=== PATIENT | male | born 1965 | race Caucasian/White ===

== ENCOUNTER 2020-09-04 04:15 | Observation (INO) | payer MEDICAID, SELFPAY ==
[2020-09-04] VITALS (14 sets, daily range): BP systolic 93–150; BP diastolic 62–93; PULSE 57–100; RESP 7–23; TEMP 36.6–37.3; O2SAT 69–98; BMI 20.4; BMI 19.5
--- NOTE | 2020-09-04 04:22 | EKG12_ITS ---
Test Reason : Blood Pressure : / mmHG Vent. Rate : 091 BPM Atrial Rate : 091 BPM P-R Int : 144 ms QRS Dur : 094 ms QT Int : 378 ms P-R-T Axes : 075 099 050 degrees QTc Int : 464 ms Normal sinus rhythm Rightward axis Incomplete right bundle branch block Borderline ECG Confirmed by KAROL KEYS, YOUNG ([id number]), editorial assistant PORSCHE WONG ([id number]) on 09/05/2020 10:30:20 AM Referred By: BB Confirmed By:YOUNG ROBERSON MD
--- NOTE | 2020-09-04 04:22 | CT_ITS ---
STUDY: CT BRAIN WITHOUT CONTRAST REASON FOR EXAM: Male, 54 years old. ALTERED MENTAL STATUS/VOMITING RADIATION DOSAGE (If Supplied By Facility): CTDIvol = ( 44.99 ) mGy, DLP = ( 762.36 ) mGycm TECHNIQUE: Transaxial CT imaging of the brain was performed without administration of intravenous contrast material. Individualized dose optimization techniques were used for this CT. COMPARISON: No relevant priors. FINDINGS: Normal soft tissue structures. Normal calvarium. There is a suggestion of prior zygomatic arch fractures. Normal size ventricles and extra-axial spaces for the patient''s age. Normal white matter tracts of the cerebral hemispheres. Normal basal ganglia and thalami. Normal brainstem. Normal cerebellum. There is no intracranial hemorrhage. There are no findings of an acute ischemic infarction. Normal visualized paranasal sinuses. CT/Brain/Head without Contrast IMPRESSION: Normal unenhanced CT scan of the brain. Electronically Signed: Katharina Calloway MD at 5:12 EST Tel , Service support ,
--- NOTE | 2020-09-04 04:24 | ED.VIS.DYS ---
History of Present Illness Chief Complaint: Alt LOC Informant: Patient, EMS Onset: - - unclear; see below Quality: - - decreased LOC Current Severity: Mild Maximum Severity: Severe Associated Symptoms: Cough. Negative for: Fever Chest Pain: None Narrative: Patient presents by EMS just after 4 AM with a history from the paramedics that the son called because upon checking on the patient he was not responding well and not breathing well with signs of emesis near the bedside. When EMS got there, they state that the son had gotten him out of bed and moved him to a chair outside, on the porch in approximately 28 degree weather. EMS states that the patient had agonal breathing on their initial evaluation. They did not intervene, but upon loading him into the ambulance he was breathing better. He was hypoxic but otherwise with normal vital signs and he is not on home oxygen. He has COPD and continues to be a heavy smoker, he states he also uses marijuana occasionally and no other drugs that he knows of. He denies feeling short of breath, having headache, having any chest or abdominal discomfort right now and he denies having a history of COVID-19 or been in contact with anybody that he knows of with it. - Past Medical History (1) COPD (chronic obstructive pulmonary disease) Status: Chronic Past Medical History - Allergies and Home Meds Allergies/Adverse Reactions: Allergies No Known Allergies Allergy (Verified 09/04/20 04:22) Primary Care Physician: Bridger Quigley MD [STAFF PHYSICIAN] - Lives: With Family Smoking Status: Current every day smoker Drugs: Marijuana Review of Systems ROS: Unable to Obtain - limited due to lethargy; see below General: Reports: Malaise. Denies: Chills, Fever, Sweats Eyes: Denies: Visual changes - bilaterally, Diplopia ENT: Denies: Bilateral ear pain, Rhinorrhea, Sore throat Cardiovascular: Denies: Chest pain, Palpitations Respiratory: Reports: Dyspnea - gone now per pt, Cough Gastrointestinal: Denies: Abdominal pain, Nausea, Vomiting, Diarrhea Genitourinary: Denies: Dysuria, Hematuria, Frequency Musculoskeletal: Denies: Myalgias, Swelling, Extremity Pain Skin: Denies: Rash, Wounds Neurological: Denies: Headache, Weakness, Numbness Endocrine: Reports: - - feels cold now. Denies: Polyuria, Polydipsia Physical Exam Vital Signs/Narrative: Vital Signs Temp Pulse Resp BP Pulse Ox 09/04/20 04:16 97.8 F 100 16 150/93 H 69 Inital Vital Signs reviewed: Yes General: Well nourished, Well developed, Unkempt, No Acute Distress Head: Normocephalic, Atraumatic Eyes: Perrl - 1-2mm, EOMI ENT: Moist mucous membranes, No rhinorrhea Neck: Supple, Nontender, No lymphadenopathy, No JVD Cardiovascular: Regular rate, Regular rhythm, No murmurs. Negative for: Tachycardia Respiratory: No distress, Chest nontender, Wheezing - mild expiratory. Negative for: Rales, Rhonchi Abdomen: Soft, Nontender, Nondistended, Normal bowel sounds Back: Nontender, Normal Inspection Extremities: Nontender, No edema. Negative for: Calf Tenderness Skin: Normal color, No rash, No Trauma Neurological: Cranial nerves II-XII grossly intact, Normal Strength, Normal Sensation, Lethargic - alerts to voice, - - GCS 13. Negative for: Disoriented Psychological: Normal affect, Normal Mood Diagnostic/Tx/Re-eval Impressions Brain CT 09/04/20 04:22 IMPRESSION: Normal unenhanced CT scan of the brain. Electronically Signed: Katharina Calloway MD at 5:12 EST Tel , Service support , Chest X-Ray 09/04/20 05:00 IMPRESSION: Possible nondisplaced fracture left rib 5. No visualized acute focal infiltrates. Electronically Signed: Katharina Calloway MD at 5:19 EST Tel , Service support , 09/04/20 04:22 Brain/Head without Contrast [CT] Stat 09/04/20 05:00 Chest 1 View (Portable) [RAD] Stat 09/04/20 04:27 Mucosa - Nose SARS-CoV-2 Antigen (Rapid) - Final Laboratory Results 09/04/20 09/04/20 09/04/20 04:22 04:22 04:22 WBC 14.4 H RBC 4.90 Hgb 15.2 Hct 48.9 MCV 99.8 H MCH 31.0 MCHC 31.1 L RDW Std Deviation 49.3 H RDW Coeff of Elaine 13.3 Plt Count 316 MPV 10.4 Immature Gran % (Auto) 0.300 Neut % (Auto) 47.2 Lymph % (Auto) 43.5 H Mills % (Auto) 7.2 Eos % (Auto) 1.5 Baso % (Auto) 0.3 Absolute Neuts (auto) 6.8 Absolute Lymphs (auto) 6.25 H Nucleated RBC % 0 Sodium 138 Potassium 3.9 Chloride 98 Carbon Dioxide 32.0 Anion Gap 8 BUN 16 Creatinine 1.11 Estim Creat Clear Calc 66.40 Est GFR (MDRD) Af Amer 89 Est GFR (MDRD) Non-Af 73 BUN/Creatinine Ratio 14.4 Glucose 250 H Lactic Acid Calcium 8.5 Total Bilirubin 0.20 AST 62 H ALT 42 Alkaline Phosphatase 76 Troponin I < 0.015 B-Natriuretic Peptide 35.9 Total Protein 7.5 Albumin 3.9 Globulin 3.6 Albumin/Globulin Ratio 1.1 Ethyl Alcohol 09/04/20 09/04/20 04:22 04:33 WBC RBC Hgb Hct MCV MCH MCHC RDW Std Deviation RDW Coeff of Elaine Plt Count MPV Immature Gran % (Auto) Neut % (Auto) Lymph % (Auto) Mills % (Auto) Eos % (Auto) Baso % (Auto) Absolute Neuts (auto) Absolute Lymphs (auto) Nucleated RBC % Sodium Potassium Chloride Carbon Dioxide Anion Gap BUN Creatinine Estim Creat Clear Calc Est GFR (MDRD) Af Amer Est GFR (MDRD) Non-Af BUN/Creatinine Ratio Glucose Lactic Acid 3.2 H* Calcium Total Bilirubin AST ALT Alkaline Phosphatase Troponin I B-Natriuretic Peptide Total Protein Albumin Globulin Albumin/Globulin Ratio Ethyl Alcohol < 3.0 - Rhythm Strip Rhythm Strip: Sinus Rhythm Rate: 91 Ectopy: None - EKG Initial EKG Interpretation: Sinus Rhythm, No Acute Injury Pattern, RBBB - Incomplete Prior: No Prior Treatment - Dyspnea: Oxygen, - - narcan - Medical Decision Making Patient was noted to have pinpoint pupils and was very lethargic, and very bradypneic with a respiratory rate around 7. His pulse ox was 86 on room air, after performing history and evaluation during which he was taking deep breaths. He was placed on a nasal cannula which maintained him in the mid-high 90s. EMS did not check a blood sugar, very little history was available. We checked a blood sugar it was in the 260s, and we administered Narcan 0.4 mg. The patient quickly awakened just after administration, started breathing better, saying that he felt warmer all of a sudden. I asked him about opioids, he states he took a Percocet earlier for his back hurting, he does not take this daily or even very often. Patient was observed, he remained awake, but hypoxic without the need for nasal cannula. No respiratory distress. Covid negative, chest x-ray negative, head CT negative. Patient is amenable to staying in the hospital which is my recommendation given his hypoxemia and the fact that he does not have oxygen at home. His abnormal lab such as his white blood count and his lactate I suspect are related to recent hypoxemia. No clinical signs of a stroke, he does not have renal failure or signs of an VT on the EKG at this time. Discussed with hospitalist for PCU observation on oxygen. ED Disposition - Plan for ED Patient: Disposition: Acute Care Hospital [facility] Diagnosis: Lethargy, Poisoning by other opioids, accidental (unintentional), initial encounter, Hypoxemia, COPD (chronic obstructive pulmonary disease) Referrals: Bridger Quigley MD [STAFF PHYSICIAN] -
[2020-09-04 04:33] LABS: Absolute Lymphocyte Count 6.25 X10^3/uL (0.83-4.51); Absolute Neutrophil Count 6.8 X10^3/uL (2.0-7.7); Basophil# 0.04 X10^3/uL; Basophil% 0.3 % (0-1); Eosinophil# 0.21 X10^3/uL; Eosinophils% 1.5 % (0-5); Hematocrit 48.9 % (40-54); Hemoglobin 15.2 g/dL (13.0-16.5); Lymphocyte # 6.25 X10^3/ul (4.0); Lymphocyte % 43.5 % (19-41); Mean Corp Hgb Conc 31.1 g/dL (32-36); Mean Corpuscular Volume 99.8 fL (80-94); Mean Platelet Vol. 10.4 fl (6.2-12.0); Monocyte# 1.04 X10^3/uL; Monocyte% 7.2 % (0-10); NRBC Flagged by Analyzer 0 % (0-5); Neutrophil # 6.79 X10^3/uL (2.7-7.7); Neutrophil % 47.2 % (47-70); POSITIVE DIFFERENTIAL YES; POSITIVE MORPHOLOGY YES; Platelet Count 316 K/mm3 (150-450); RBC Distribution Width CV 13.3 % (11.6-14.6); RBC Distribution Width SD 49.3 fl (35.1-43.9); White Blood Count 14.4 K/mm3 (4.4-11.0)
[2020-09-04] MEDS: Naloxone 0.4 MG/ML Syringe IV (04:38)
[2020-09-04 04:46] LABS: Alcohol, Blood (Medical)-Serum < 3.0 mg/dL
[2020-09-04 04:48] LABS: ALB/GLOB Ratio 1.1 RATIO (0.9-2.4); AST(SGOT) 62 U/L (15-37); Alanine Aminotransfer ALT/SGPT 42 U/L (16-61); Albumin, Serum 3.9 g/dL (3.2-5.0); Alkaline Phosphatase 76 U/L (45-117); Anion Gap 8 (5-15); BUN 16 mg/dL (7-18); BUN/Creat Ratio 14.4 RATIO (10-20); Calcium,Total 8.5 mg/dL (8.5-10.1); Chloride 98 mmol/L (98-107); Creatinine, Serum 1.11 mg/dL (0.70-1.30); EST Glomerular Filtration Rate 73 mL/min (>60); Est Glom Filt Rate - Afr Amer 89 mL/min (>60); Globulin 3.6 g/dL (2.2-4.2); Glucose 250 mg/dL (74-106); Potassium 3.9 mmol/L (3.5-5.1); Protein, Total 7.5 g/dL (6.4-8.2); Sodium Level 138 mmol/L (136-145)
[2020-09-04 04:49] LABS: Differential Indicated SCAN CRITERIA MET
[2020-09-04 04:55] LABS: BNP,B-Type NATRIURETIC PEPTIDE 35.9 pg/mL (0-100)
--- NOTE | 2020-09-04 05:00 | RAD_ITS ---
STUDY: X-RAY CHEST REASON FOR EXAM: Male, 54 years old. PT FOUND UNCONSCIOUS BY FAMILY AND BROUGHT IN VIA EMS. AGONAL BREATHING AND ALTERED LOC. TECHNIQUE: Single AP portable view of the chest. COMPARISON: None. FINDINGS: The lungs are clear and expanded. There is no demonstrated pleural abnormality. Normal size heart. Normal mediastinum and gregorio. Normal visualized pulmonary arteries. There is atherosclerotic tortuosity of the aortic arch and descending thoracic aorta. Normal visualized thoracic spine. There is a suggestion of possible nondisplaced fracture of left rib 5. There is no demonstrated abnormality of the visualized soft tissue structures of the upper abdomen. RAD/Chest 1 View (Portable) IMPRESSION: Possible nondisplaced fracture left rib 5. No visualized acute focal infiltrates. Electronically Signed: Katharina Calloway MD at 5:19 EST Tel , Service support ,
[2020-09-04 05:17] LABS: Lactic Acid 3.2 mmol/L (0.4-1.9)
--- NOTE | 2020-09-04 07:18 | HP.PCM_ITS ---
History of Present Illness Date of Admission: 09/04/20 Chief Complaint: altered mental status The patient is a 54 year old M with a PMH of COPD who was admitted with a complaint of altered mental status. Son checked on him at ~ 3:30am, and found him unresponsive. SOn therefore called the EMS, and put him in a chair outside on the porch. THe EMS found him on the porch, with agonal breathing. They didnt do anything for him, and say when they put him in the ambulance, patient started breathing better. He was brought to the ED where he was found to be hypopneic and breathing at around 7/min, patient denies using any drugs apart from marijuana but then said he had taken 1 Percocet for back pain. After he was given a dose of Narcan, patient was very alert and oriented. Review of signs otherwise negative. Patient was found to be in a very disheveled and unkempt state. Vitals show temperature of 97.8 Fahrenheit with blood pressure of 93/64, pulse rate of 92 respiratory of 16. He was saturating 96% on 2 L of oxygen. Chemistry showed lactic acid of 3.2 and glucose of 250 but troponin was negative. CBC showed WBC of 14.4, hemoglobin of 15.2 and platelets of 316. CT of the brain was normal and EKG showed no acute ST changes. Serum alcohol level was less than 3 and U tox was pending. He has been admitted to be managed for acute metabolic encephalopathy likely due to toxic drug ingestion and hypoxia likely due to COPD. [] Past Medical History Past Medical History (Chronic Problems): Chronic Problems COPD (chronic obstructive pulmonary disease) (Chronic) Allergies No Known Allergies Allergy (Verified 09/04/20 04:22) Home Medications: Ambulatory Orders Medication Instructions Recorded Aripiprazole [Abilify] 5 mg PO DAILY 09/04/20 Sertraline HCl [Zoloft] 200 mg PO DAILY 09/04/20 Lives: With Family Smoking Status: Current every day smoker Drugs: Marijuana - *Family History Maternal History Items: No pertinent history Paternal History Items: No pertinent history Review of Systems Constitutional: Denies: Chills, Fever, Weight Change Eyes: Denies: Blurred vision HEENT: Denies: Head Aches, Sinus Congestion, Sinus Drainage Cardiovascular: Denies: Chest Pain, Palpitations Respiratory: Reports: Shortness of Breath. Denies: Cough, Shortness of breath at rest, Sputum production Gastrointestinal: Denies: Abdominal Pain, Nausea, Vomiting Genitourinary: Denies: Dysuria Musculoskeletal: Denies: Joint Pain, Joint Tenderness Skin: Denies: Rash, Wounds Neurological: Denies: Numbness, Tingling, Focal weakness Psychiatric: Denies: Anxiety, Depression, Homicidal Ideations, Suicidal Ideations Hematologic/ Lymphatic: Denies: Easy Bruising, Easy Bleeding VTE Information - Inpt Only VTE Present on Admission: No VTE Pharm Prophylaxis ordered?: Yes Patient Problems: Active and Suspected Problems Lethargy (Acute) Poisoning by other opioids, accidental (unintentional), initial encounter (Acute) Hypoxemia (Acute) - Physical Exam Vitals/I&O's: Vital Signs Temp Pulse Resp BP Pulse Ox 97.8 F 92 16 93/64 96 09/04/20 04:16 09/04/20 06:30 09/04/20 06:30 09/04/20 06:30 09/04/20 06:30 Oxygen Flow Rate (L/min) 2 Oxygen Delivery Method Room Air Weight: 134 lb 7.712 oz Body Mass Index (BMI) 20.4 Finger Stick Blood Glucose 248 General: Alert, Oriented x3, Cooperative, - - very disheveled HEENT: Atraumatic, PERRLA, EOMI, Normocephalic Neck: Supple, No JVD, Negative Carotid Bruits Lungs: Clear to auscultation, Normal air movement, No rhonchi, No wheeze, No rales, - - on 2L of oxygen at home Cardiovascular: Regular rate, Regular Rhythm, Normal S1, Normal S2, No murmurs Abdomen: Bowel Sounds Present, Soft, Non Tender Extremities: No clubbing, No cyanosis, No edema, Capillary Refill Less than 3 Seconds Skin: No rashes, No breakdown Musculoskeletal: No Tenderness to Palpation of Joints or Extremities Lymphatic: No Cervical, Supraclavicular, or Inguinal Adenopathy Neurological: Cranial nerves II-XII grossly intact, Neuro grossly intact, Motor Exam 5/5 strength throughout Psych/Mental Status: Normal Affect, Appropriate, Alert and oriented to time, place, person, mood and affect Microbiology Past 72 Hours 09/04/20 04:27 Mucosa - Nose SARS-CoV-2 Antigen (Rapid) - Final Laboratory Results 09/04/20 04:22: WBC 14.4 H, RBC 4.90, Hgb 15.2, Hct 48.9, MCV 99.8 H, MCH 31.0, MCHC 31.1 L, RDW Std Deviation 49.3 H, RDW Coeff of Elaine 13.3, Plt Count 316, MPV 10.4, Immature Gran % (Auto) 0.300, Neut % (Auto) 47.2, Lymph % (Auto) 43.5 H, [place] % (Auto) 7.2, Eos % (Auto) 1.5, Baso % (Auto) 0.3, Absolute Neuts (auto) 6.8, Absolute Lymphs (auto) 6.25 H, Nucleated RBC % 0 09/04/20 04:22: Sodium 138, Potassium 3.9, Chloride 98, Carbon Dioxide 32.0, Anion Gap 8, BUN 16, Creatinine 1.11, Estim Creat Clear Calc 66.40, Est GFR (MDRD) Af Amer 89, Est GFR (MDRD) Non-Af 73, BUN/Creatinine Ratio 14.4, Glucose 250 H, Calcium 8.5, Total Bilirubin 0.20, AST 62 H, ALT 42, Alkaline Phosphatase 76, Troponin I < 0.015, Total Protein 7.5, Albumin 3.9, Globulin 3.6, Albumin/Globulin Ratio 1.1 09/04/20 04:22: B-Natriuretic Peptide 35.9 09/04/20 04:22: Ethyl Alcohol < 3.0 09/04/20 04:33: Lactic Acid 3.2 H* Diagnostic Data Brain CT 09/04/20 04:22 IMPRESSION: Normal unenhanced CT scan of the brain. Electronically Signed: Katharina Calloway MD at 5:12 EST Tel , Service support , Chest X-Ray 09/04/20 05:00 IMPRESSION: Possible nondisplaced fracture left rib 5. No visualized acute focal infiltrates. Electronically Signed: Katharina Calloway MD at 5:19 EST Tel , Service support , Assessment/Plan All Active Problems Lethargy (Acute) Poisoning by other opioids, accidental (unintentional), initial encounter (Acute) Hypoxemia (Acute) 54 y/o admitted with a complaint of altered mental status and found to be hypoxic #Acute metabolic encephalopathy * likely due to drug ingestion * admits to taking one pill of percocet. Urine drug screen pending. Serum alcohol level was negative * had pinpoint pupils in the ED, and was more alert after receiving narcan * admit to pCU * hydrate gently with IVF * PT/OT consult. fall precautions * Narcan prn if patient gets more lethargic * #Acute hypoxic respiratory insufficiency due to COPD * He does have known COPD, but doesnt wear oxygen. * was saturating at 86% in the ED, and required 2L of oxygen * wbc is up at 14.4; there is a chance he may have aspirated as he was found unresponsive. * CXR showed no acute focal infiltrates, and showed possible nondisplaced left rib 5 fracture * titrate oxygen to maintain sats ?90% * breathing treatment with bronchodilators * #Lactic acidosis: * Lactic acid was 3.2. * It is unknown how long patient was unconscious and this may have resulted in the elevated lactic acid. * Hydrate gently with IV fluids and trend. * #DepressION; on Zoloft and Aripiprazole DVT prophylaxis: lovenox OBSV E&M: 55687 Initial observation care L3
[2020-09-04 08:40] LABS: Reflex Lactate? Y
[2020-09-04] MEDS: 0.9% Normal Saline 1,000 ML 125 ML IV ×2 (09:39→17:12)
[2020-09-04] MEDS: Sertraline 100 MG Tablet 200 MG PO (09:45)
[2020-09-04] MEDS: ARIPiprazole 5 MG Tablet PO (09:45)
[2020-09-04] MEDS: Enoxaparin 40 MG/0.4 ML Syringe SC (09:45)
[2020-09-04 10:06] LABS: Lactic Acid 0.5 mmol/L (0.4-1.9)
--- NOTE | 2020-09-04 19:17 | PCS.PANDOC ---
Addendum entered by Bebe Garcia 09/04/20 19:18: date is 09/04/20 Original Note: PANDEMIC DOCUMENTATION INITIATED: Date: 09/03/20 Time: 0415
[2020-09-04 20:02] LABS: Bacteria 0 SEEN /hpf (None Seen); Mucous, Urine 0 SEEN /hpf (<or=2+); White Blood Cells 0 SEEN /hpf (0-5)
[2020-09-04 20:09] LABS: Color, Urine Yellow (Yellow); Glucose, Dipstick Normal (Normal); Ketone-Dipstick Negative (Negative); Leukocyte Esterase-Dipstick Negative /ul (Negative); Nitrite-Dipstick Negative (Negative); Occult Blood-Urine 10 /ul (Negative); Protein-Dipstick Negative (Negative); Specific Gravity, Urine 1.015 (1.002-1.030); Urine Bilirubin Dipstick Negative (Negative); Urine Clarity Sl. Cloudy (Clear); Urine Urobilinogen Normal (Normal)
[2020-09-04 20:16] LABS: Red Blood Cells-Urine 0-5 SEEN /hpf (0-5); Squamous Epithelial Cells - UA 0-5 SEEN /hpf (0-5)
[2020-09-04 20:21] LABS: Amphetamine Urine VISTA NEGATIVE (<1000 ng/mL); Barbiturate Urine VISTA NEGATIVE (< 200 ng/mL); Benzodiazepine Urine VISTA NEGATIVE (< 200 ng/mL); Cocaine Urine VISTA NEGATIVE (< 300 ng/mL); Ecstacy Urine VISTA NEGATIVE (< 500 ng/mL); Methadone Urine VISTA NEGATIVE (< 300 ng/mL); PCP Urine VISTA NEGATIVE (< 25 ng/mL); THC Urine VISTA POSITIVE (< 50 ng/mL); Vista UDS pH Range 6
[2020-09-05] VITALS (8 sets, daily range): BP systolic 99–140; BP diastolic 62–83; PULSE 64–78; RESP 16–17; TEMP 36.6–36.8; O2SAT 90–96
[2020-09-05 06:47] LABS: Absolute Lymphocyte Count 2.22 X10^3/uL (0.83-4.51); Absolute Neutrophil Count 3.8 X10^3/uL (2.0-7.7); Basophil# 0.01 X10^3/uL; Basophil% 0.2 % (0-1); Eosinophil# 0.07 X10^3/uL; Eosinophils% 1.1 % (0-5); Hematocrit 41.1 % (40-54); Hemoglobin 13.4 g/dL (13.0-16.5); Lymphocyte # 2.22 X10^3/ul (4.0); Lymphocyte % 33.4 % (19-41); Mean Corp Hgb Conc 32.6 g/dL (32-36); Mean Corpuscular Hgb 31.6 pg (27.0-32.0); Mean Corpuscular Volume 96.9 fL (80-94); Mean Platelet Vol. 10.2 fl (6.2-12.0); Monocyte# 0.49 X10^3/uL; Monocyte% 7.4 % (0-10); NRBC Flagged by Analyzer 0 % (0-5); Neutrophil # 3.84 X10^3/uL (2.7-7.7); Neutrophil % 57.6 % (47-70); Platelet Count 223 K/mm3 (150-450); RBC Distribution Width CV 13.1 % (11.6-14.6); RBC Distribution Width SD 47.2 fl (35.1-43.9); Red Blood Count 4.24 M/mm3 (4.6-6.2); White Blood Count 6.7 K/mm3 (4.4-11.0)
[2020-09-05 07:03] LABS: Anion Gap 2 (5-15); BUN 9 mg/dL (7-18); BUN/Creat Ratio 15.2 RATIO (10-20); Calcium,Total 8.2 mg/dL (8.5-10.1); Chloride 106 mmol/L (98-107); Creatinine, Serum 0.59 mg/dL (0.70-1.30); EST Glomerular Filtration Rate 152 mL/min (>60); Est Glom Filt Rate - Afr Amer 184 mL/min (>60); Estimated Creatinine Clearance 119.19 ml/min; Glucose 82 mg/dL (74-106); Potassium 3.7 mmol/L (3.5-5.1); Sodium Level 140 mmol/L (136-145)
[2020-09-05] MEDS: Sertraline 100 MG Tablet 200 MG PO (09:09)
[2020-09-05] MEDS: ARIPiprazole 5 MG Tablet PO (09:09)
[2020-09-05] MEDS: Enoxaparin 40 MG/0.4 ML Syringe SC (09:09)
--- NOTE | 2020-09-05 10:32 | DCINST_ITS ---
- Discharge Diagnoses Current Active Problems: Current Active and Chronic Problems COPD (chronic obstructive pulmonary disease) (Chronic) Lethargy (Acute) Poisoning by other opioids, accidental (unintentional), initial encounter (Acute) Hypoxemia (Acute) You will use the following diet at home:: No restrictions Discharge Activity: Return to Normal Activity, May not drive while taking narcotic pain medications. Allergies/Adverse Reactions: Allergies No Known Allergies Allergy (Verified 09/04/20 04:22) Medications to take at Discharge Aripiprazole [Abilify] 5 mg PO DAILY 09/04/20 Sertraline HCl [Zoloft] 200 mg PO DAILY 09/04/20 Primary Care Physician: Bridger Quigley MD [STAFF PHYSICIAN] - Please follow up with your Primary Care Physician in: in 1-2 weeks Test Results: Test results from this visit will be discussed in further detail at your follow- up appointment, if applicable. Proposed Discharge Date: 09/05/20
--- NOTE | 2020-09-05 10:35 | DS.PCM_ITS ---
Discharge Date and Diagnosis - Problem List Patient Problems: Active and Suspected Problems Lethargy (Acute) Poisoning by other opioids, accidental (unintentional), initial encounter (Acute) Hypoxemia (Acute) Date of Admission: 09/04/20 Date of Discharge: 09/05/20 - Primary Discharge Diagnosis Acute Problems: Active Problems Lethargy (Acute) Poisoning by other opioids, accidental (unintentional), initial encounter (Acute) Hypoxemia (Acute) - Secondary Discharge Diagnosis Chronic Problems: Chronic Problems COPD (chronic obstructive pulmonary disease) (Chronic) Hospital Course and Treatment Imaging Results: Clinical Impression(s) from Imaging Studies Brain CT 09/04/20 04:22 IMPRESSION: Normal unenhanced CT scan of the brain. Electronically Signed: Katharina Calloway MD at 5:12 EST Tel , Service support , Chest X-Ray 09/04/20 05:00 IMPRESSION: Possible nondisplaced fracture left rib 5. No visualized acute focal infiltrates. Electronically Signed: Katharina Calloway MD at 5:19 EST Tel , Service support , Summary of Care Provided: The patient is a 54 year old M with altered mental status 1. Acute metabolic encephalopathy -secondary to drug overdose with Percocet. Patient did receive Narcan admitted to regular nursing floor for further management. Patient level of sensorium had returned to his baseline at the time of discharge the following day 3. Acute hypoxic respiratory sufficiency Secondary to COPD patient was placed on supplemental oxygen 3. Depression ?Patient is on Zoloft as well as Abilify did continue 4. Possible nondisplaced fracture left rib 5 ?Did encourage the use of incentive spirometry Tylenol for pain 5. DVT prophylaxis ?Lovenox Patient Problems: Active and Suspected Problems Lethargy (Acute) Poisoning by other opioids, accidental (unintentional), initial encounter (Acute) Hypoxemia (Acute) - Physical Exam Vitals/I&O's: Vital Signs Temp Pulse Resp BP Pulse Ox 97.8 F 67 16 115/70 95 09/05/20 09:06 09/05/20 09:06 09/05/20 09:06 09/05/20 09:06 09/05/20 09:06 Oxygen Flow Rate (L/min) 2 Oxygen Delivery Method Nasal Cannula Weight: 58.2 kg Body Mass Index (BMI) 19.5 Finger Stick Blood Glucose 248 Intake and Output for Last 24 Hours 09/03/20 09/04/20 09/05/20 23:59 23:59 23:59 Intake Total 2097.50 / 2097.50 Output Total 1050 / 1050 Balance 1047.50 / 1047.50 General: Alert HEENT: Atraumatic Cardiovascular: Regular rate Neurological: Neuro grossly intact Microbiology Past 72 Hours 09/04/20 04:27 Mucosa - Nose SARS-CoV-2 Antigen (Rapid) - Final Laboratory Results 09/04/20 12:11: Troponin I < 0.015 09/04/20 15:16: Troponin I < 0.015 09/04/20 20:00: Urine Opiates Screen NEGATIVE, Urine Methadone Screen NEGATIVE, Ur Barbiturates Screen NEGATIVE, Ur Phencyclidine Scrn NEGATIVE, Ur Amphetamines Screen NEGATIVE, U Methamphetamin-MDMA NEGATIVE, U Benzodiazepines Scrn NEGATIVE, Urine Cocaine Screen NEGATIVE, U Cannabinoids Screen POSITIVE H, Ur Drug Screen Comment 09/04/20 20:00: Urine Color Yellow, Urine Clarity Sl. Cloudy, Urine pH 6.0, Ur Specific Elsie 1.015, Urine Protein Negative, Urine Glucose (UA) Normal, Urine Ketones Negative, Urine Occult Blood 10 H, Urine Nitrite Negative, Urine Bilirubin Negative, Urine Urobilinogen Normal, Ur Leukocyte Esterase Negative, Urine RBC 0-5 SEEN, Urine WBC 0 SEEN, Ur Squamous Epith Cells 0-5 SEEN, Urine Bacteria 0 SEEN, Urine Mucus 0 SEEN 09/05/20 06:17: WBC 6.7, RBC 4.24 L, Hgb 13.4, Hct 41.1, MCV 96.9 H, MCH 31.6, MCHC 32.6, RDW Std Deviation 47.2 H, RDW Coeff of Elaine 13.1, Plt Count 223, MPV 10.2, Immature Gran % (Auto) 0.300, Neut % (Auto) 57.6, Lymph % (Auto) 33.4, Darke % (Auto) 7.4, Eos % (Auto) 1.1, Baso % (Auto) 0.2, Absolute Neuts (auto) 3.8, Absolute Lymphs (auto) 2.22, Nucleated RBC % 0 09/05/20 06:17: Sodium 140, Potassium 3.7, Chloride 106, Carbon Dioxide 32.0, Anion Gap 2 L, BUN 9, Creatinine 0.59 L, Estim Creat Clear Calc 119.19, Est GFR (MDRD) Af Amer 184, Est GFR (MDRD) Non-Af 152, BUN/Creatinine Ratio 15.2, Glucose 82, Calcium 8.2 L Current Medications Acetaminophen (Acetaminophen 325 Mg Tablet) 650 mg PO Q6H PRN PRN PRN Reason: Pain Score 1-10/Temp > 100.7 F Aripiprazole (Aripiprazole 5 Mg Tablet) 5 mg PO DAILY [facility] Last Admin: 09/05/20 09:09 Dose: 5 mg Documented by: Enoxaparin Sodium (Enoxaparin 40 Mg/0.4 Ml Syringe) 40 mg SC DAILY [facility] Last Admin: 09/05/20 09:09 Dose: 40 mg Documented by: Nicotine (Nicotine 21 Mg Patch) 21 mg TD DAILY [facility] Last Admin: 09/05/20 09:09 Dose: 21 mg Documented by: Nicotine Polacrilex (Nicotine Polacrilex 2 Mg Gum) 2 mg PO Q2H PRN PRN PRN Reason: Nicotine Craving Nitroglycerin (Nitroglycerin (Inpatient Use) 0.4 Mg Tab.Subl) 0.4 mg SUBLINGUAL Q5M PRN PRN Reason: CARDIAC/CHEST PAIN Ondansetron HCl (Ondansetron 4 Mg/2 Ml Vial) 4 mg IV Q8H PRN PRN PRN Reason: NAUSEA/VOMITING Sertraline HCl (Sertraline 100 Mg Tablet) 200 mg PO DAILY [facility] Last Admin: 09/05/20 09:09 Dose: 200 mg Documented by: Sodium Chloride (0.9% Saline Lock 10 Ml Syringe) 10 - 40 ml IV UD PRN PRN Reason: SALINE FLUSH Discharge Diet: No Restrictions Discharge Activity: Return to Normal Activity, May not drive while taking narcotic pain medications. Home Medications: Medications to take at Discharge Aripiprazole [Abilify] 5 mg PO DAILY 09/04/20 Sertraline HCl [Zoloft] 200 mg PO DAILY 09/04/20 Primary Care Physician: Bridger Quigley MD [STAFF PHYSICIAN] - Please follow up with your Primary Care Physician in: in 1-2 weeks Disposition: Home Minutes spent on discharge:: 35 Patient Condition:: Stable Medical Necessity - Tobacco Use Smoking Status: Current every day smoker Meaningful Use Info Meaningful Use Diagnoses (Choose all that apply): None applicable OBSV E&M: 95163 Observation care discharge
--- NOTE | 2020-09-05 10:48 | CASEMGMT ---
SW met with patient since he does not have any insurance. SRI introduced self and role at [facility]. SW went over the packet of resources SW was going to leave with him. He said he has not applied for Medicaid. SW gave him a Medicaid application in his packet. He is not working and has not for awhile. He goes to [facility] for his mental health. He has been paying for his two medications. He is not receiving any prescriptions for new d/c medications. Danii QUIROZ MSW
--- NOTE | 2020-09-05 11:04 | PHA.DC.MR ---
Pharmacy Service has performed discharge medication reconciliation for this patient. The patient's discharge medication list was reviewed for discrepancies and discrepancies were resolved. Home Medications Aripiprazole [Abilify] 5 mg PO DAILY 09/04/20 Sertraline HCl [Zoloft] 200 mg PO DAILY 09/04/20
== END 2020-09-05 10:33 | disposition home or self-care (01) ==
LOC: ED 07:18 → PCU 07:41
PROVIDERS: Admitting Provider Student in an Organized Health Care Education/Training Program; Emergency Provider Emergency Medicine; PCP Family Medicine; Visit Provider Internal Medicine
DX: T40.2X1A Poisoning by other opioids, accidental (unintentional), initial encounter (principal); G92 Toxic encephalopathy; J44.9 Chronic obstructive pulmonary disease, unspecified; R09.02 Hypoxemia; F32.9 Major depressive disorder, single episode, unspecified; Z79.899 Other long term (current) drug therapy; F17.200 Nicotine dependence, unspecified, uncomplicated; E87.2 Acidosis; X58.XXXA Exposure to other specified factors, initial encounter; G93.41 Metabolic encephalopathy
CPT/HCPCS: 36415; 70450; 71045; 80048; 80053; 80307; 81001; 82077; 83605; 83880; 84484; 85025; 87040; 87426; 93005; 96361; 96372; 96374; 97162; 97165; 99218; 99285; 99406; J7030; A4216; G0378; J2310

== ENCOUNTER 2023-12-10 20:39 | Inpatient (IN) | payer MEDICARE, MEDICAID, SELFPAY ==
[2023-12-10] VITALS (22 sets, daily range): BP systolic 82–147; BP diastolic 56–92; PULSE 14–107; RESP 11–101; TEMP 36.6–36.9; O2SAT 68–98; BMI 28.5
--- NOTE | 2023-12-10 20:42 | EKG12_ITS ---
Test Reason : DYSRHYTHMIA Blood Pressure : / mmHG Vent. Rate : 101 BPM Atrial Rate : 101 BPM P-R Int : 164 ms QRS Dur : 122 ms QT Int : 364 ms P-R-T Axes : 086 099 058 degrees QTc Int : 471 ms Sinus tachycardia Possible Left atrial enlargement Right bundle branch block Abnormal ECG Confirmed by KAROL KEYS, YOUNG ([id number]), mapping editor DEON LIGHT ([id number]) on 12/11/2023 9:18:50 AM Referred By: Confirmed By:YOUNG ROBERSON MD
--- NOTE | 2023-12-10 20:42 | CT_ITS ---
INDICATION: altered mental status EXAMINATION: CT BRAIN - CT Head or Brain W/O Contrast Injection TECHNIQUE: Serial CT axial images were obtained of the head without intravenous contrast. A radiation dose optimization technique was used for this scan. RADIATION DOSAGE (If Supplied By Facility): CTDIvol/DLP = ( 44.99 ) / ( 812.98 ) mGy/mGycm COMPARISON: 09/04/[address] Findings: Serial CT axial images of the head without contrast. BRAIN PARENCHYMA: Normal monroy-white matter differentiation. No evidence of intraparenchymal hemorrhage or hyperattenuating extra-axial fluid collection. BONES: Bilateral maxillary sinus mucosal thickening. Bilateral anterior maxillary dental root lucencies consistent with dental root abscess formation. SCALP/REMAINING SOFT TISSUES: Unremarkable. ASPECTS Score for Acute Strokes, if applicable: 10 CT/Brain/Head without Contrast IMPRESSION: No acute intracranial hemorrhage in this noncontrast head CT. Bilateral anterior maxillary dental root lucencies consistent with dental root abscess formation. Sinus disease. Electronically Signed: David Rondon MD at 21:58 EDT ,
[2023-12-10 20:53] LABS: Absolute Lymphocyte Count 1.03 X10^3/uL (0.83-4.51); Absolute Neutrophil Count 22.1 X10^3/uL (2.0-7.7); Basophil% 0.4 % (0-1); Hemoglobin 15.7 g/dL (13.0-16.5); Lymphocyte # 1.03 X10^3/ul (0.83-4.51); Mean Corp Hgb Conc 29.1 g/dL (32-36); Mean Corpuscular Hgb 31.7 pg (27.0-32.0); Mean Corpuscular Volume 109.1 fL (80-94); Mean Platelet Vol. 10.4 fl (6.2-12.0); Monocyte% 9.3 % (0-10); NRBC Flagged by Analyzer 0.2 % (0-5); Neutrophil # 22.08 X10^3/uL (2.7-7.7); Neutrophil % 85.3 % (47-70); POSITIVE DIFFERENTIAL YES; Platelet Count 216 K/mm3 (150-450); RBC Distribution Width SD 60.7 fl (35.1-43.9); Red Blood Count 4.95 M/mm3 (4.6-6.2); White Blood Count 25.9 K/mm3 (4.4-11.0)
[2023-12-10 20:59] LABS: Differential Indicated SCAN CRITERIA MET
[2023-12-10 21:00] LABS: Bacteria 0 SEEN /hpf (None Seen); Mucous, Urine 0 SEEN /hpf (<or=2+); Squamous Epithelial Cells - UA 0 SEEN /hpf (0-5)
[2023-12-10 21:02] LABS: Prothrombin Time (Protime)PT. 47.8 SECONDS (11.7-14.9)
[2023-12-10 21:03] LABS: Partial Thromboplast Time 35.6 Seconds (24.1-36.2)
[2023-12-10 21:03] LABS: Allen Test Positive; Base Excess -8 mmol/L (-2 to +2); Bicarbonate 24.4 mmol/L (22-26); Blood Gas Specimen Type ART; Mode Not entered; O2 Delivery Device NRB; PO2 97 mmHG (75-100); SITE R Radial; SO2 89 % (95-99); Total Carbon Dioxide 28 mmol/L; pCO2 124.4 mmHg (35-45)
--- NOTE | 2023-12-10 21:04 | RAD_ITS ---
INDICATION: altered mental status COMPARISON: 09/04/2020 chest radiograph. Findings: Single frontal view of the chest. LUNG PARENCHYMA: Diffuse bilateral interstitial thickening. Numerous left lower lung lucencies, most consistent with blebs and bulla. Tabby B-lines present. PLEURA: No pleural effusion. No pneumothorax. HEART/GREAT VESSELS: Cardiomegaly. Prominence of the central vasculature suggesting venous congestion. BONES: Osseous structures are unremarkable for age. RAD/Chest 1 View (Portable) IMPRESSION: Diffuse interstitial process, suggesting pulmonary edema given venous congestion and cardiomegaly. Infectious etiology is not excluded. Numerous left lower lung lucencies, most consistent with blebs and bulla. Electronically Signed: David Rondon MD at 22:56 EDT ,
[2023-12-10 21:07] LABS: Color, Urine Yellow (Yellow); Glucose, Dipstick Normal (Normal); Ketone-Dipstick 5 mg/dl (Negative); Leukocyte Esterase-Dipstick 25 /ul (Negative); Nitrite-Dipstick Negative (Negative); Occult Blood-Urine 150 /ul (Negative); Protein-Dipstick 500 mg/dl (Negative); Specific Gravity, Urine 1.025 (1.002-1.030); Urine Clarity Sl. Cloudy (Clear); Urine Urobilinogen 4 mg/dl (Normal)
[2023-12-10 21:10] LABS: International Normalized Ratio 5.3
[2023-12-10 21:19] LABS: Urine Bilirubin Dipstick 1 mg/dL (Negative)
[2023-12-10 21:20] LABS: Red Blood Cells-Urine 10-25 SEEN /hpf (0-5); White Blood Cells 0-5 SEEN /hpf (0-5)
[2023-12-10 21:25] LABS: AST(SGOT) 3585 U/L (15-37); Alanine Aminotransfer ALT/SGPT 972 U/L (16-61); Albumin, Serum 3.4 g/dL (3.2-5.0); Alkaline Phosphatase 100 U/L (45-117); Anion Gap 13 (5-15); BUN 48 mg/dL (7-18); BUN/Creat Ratio 16.1 RATIO (10-20); CPK Total, Creatine Kinase 522 U/L (39-308); Calcium,Total 8.4 mg/dL (8.5-10.1); Chloride 98 mmol/L (98-107); Creatinine, Serum 2.98 mg/dL (0.70-1.30); EST Glomerular Filtration Rate 23 mL/min (>60); Est Glom Filt Rate - Afr Amer 28 mL/min (>60); Estimated Creatinine Clearance 30.93 ml/min; Globulin 3.5 g/dL (2.2-4.2); Glucose 47 mg/dL (74-106); Potassium 5.3 mmol/L (3.5-5.1); Protein, Total 6.9 g/dL (6.4-8.2); Sodium Level 137 mmol/L (136-145)
[2023-12-10 21:26] LABS: Lactic Acid 9.8 mmol/L (0.4-1.9)
[2023-12-10 21:26] LABS: Amphetamine Urine VISTA POSITIVE (<1000 ng/mL); Barbiturate Urine VISTA NEGATIVE (< 200 ng/mL); Benzodiazepine Urine VISTA POSITIVE (< 200 ng/mL); Cocaine Urine VISTA NEGATIVE (< 300 ng/mL); Ecstacy Urine VISTA POSITIVE (< 500 ng/mL); Methadone Urine VISTA NEGATIVE (< 300 ng/mL); PCP Urine VISTA NEGATIVE (< 25 ng/mL); THC Urine VISTA POSITIVE (< 50 ng/mL); Vista UDS pH Range 5
--- NOTE | 2023-12-10 21:27 | CPS ---
Critical ABG values, Dr. Murry aware. Not enough blood for re-run.
[2023-12-10] MEDS: Lactated Ringers 1,000 ML 250 ML IV (21:32)
[2023-12-10 21:34] LABS: Differential Comment SCANNED
--- NOTE | 2023-12-10 21:37 | RAD_ITS ---
INDICATION: intubation COMPARISON: Chest radiograph earlier same day, 2104 hours Findings: Single frontal view of the chest 2139 hours. Patient is rotated. Enteric tube tip terminates off the left upper quadrant inferior margin of the image. Endotracheal tube tip is approximately 26 mm from the jorge. LUNG PARENCHYMA: Again noted bilateral interstitial thickening. Numerous left lower lung lucencies, most consistent with blebs and bulla. Tabby B-lines present. PLEURA: No pleural effusion. No pneumothorax. HEART/GREAT VESSELS: Cardiomegaly. Prominence of the central vasculature suggesting venous congestion. BONES: Osseous structures are unremarkable for age. RAD/Chest 1 View (Portable) IMPRESSION: Endotracheal tube tip is approximately 26 mm from the jorge. Again noted interstitial process, suggesting pulmonary edema given venous congestion and cardiomegaly. Infectious etiology is not excluded. Numerous left lower lung lucencies, most consistent with blebs and bulla. Electronically Signed: David Rondon MD at 22:58 EDT ,
[2023-12-10] MEDS: NORMAL SALINE IV (21:55)
[2023-12-10] MEDS: VIAFLEX IV (21:55)
[2023-12-10] MEDS: Ampicillin/Sulbactam 3 GM in 0.9% Normal Saline (100mL MB+) 100 ML IV (21:55)
[2023-12-10] MEDS: fentaNYL drip 100 ML 2.5 MCG CONT INF (22:06)
[2023-12-10 22:34] LABS: Troponin-I HS 93 pg/mL (3.0-78.0)
[2023-12-10] MEDS: Midazolam 2 MG/2 ML Syringe IV (22:44)
--- NOTE | 2023-12-10 22:44 | EX.ED.DYSGE1 ---
HPI History of Present Illness Chief Complaint: Unresponsive Informant: EMS Narrative Narrative: Brought in by EMS after family checked unresponsive. Blood glucose 84. He is being bagged valve on the way in. Reported empty bottle of liquor next to him. Reported possible meth use. He was given 1 mg Narcan by EMS. There is no emesis during their transport. History of COPD. After workup initiated, family came, reports he lives with a roommate. Family does not see them often however reported he was texting his mother earlier today and was texting normally with no complaints. He had a previous history of alcohol they did admit to possible meth use. Reported brother told him to come check on him. He was found unresponsive. [facility] Medical History COPD (chronic obstructive pulmonary disease) Medical History unable to obtain Home Medications aripiprazole 5 mg tablet 5 mg PO DAILY mental health 09/04/20 [History Last Taken 09/03/20 09:00] sertraline 100 mg tablet 200 mg PO DAILY depression 09/04/20 [History Last Taken 09/03/20 09:00] Allergy/AdvReac Type Severity Reaction Status Date / Time No Known Allergies Allergy Verified 12/10/23 21:31 Social History Smoking Status: Unknown if ever smoked ROS ROS ED Review of Systems ROS Unobtainable: due to mental status EXAM Physical Exam Const Vital Signs: 12/10/23 20:40 12/10/23 20:46 12/10/23 20:46 Temperature 98.4 F Temperature Source Oral Pulse Rate 100 100 Respiratory Rate 16 16 Respiratory Effort Respiratory Depth Respiratory Pattern Blood Pressure 145/92 H 147/90 H Blood Pressure Mean 109 109 Pulse Ox 73 91 Oxygen Delivery Method Room Air Ambu-Bag Ambu-Bag Oxygen Flow Rate (L/min) Fraction of Inspired Oxygen (FIO2) 12/10/23 20:50 12/10/23 20:45 12/10/23 21:23 Temperature 98.4 F Temperature Source Oral Pulse Rate 100 96 Respiratory Rate 16 14 Respiratory Effort Respiratory Depth Respiratory Pattern Blood Pressure 147/90 H 111/78 Blood Pressure Mean 109 89 Pulse Ox 95 94 Oxygen Delivery Method Non-Rebreather Non-Rebreather Mechanical Ventilator Oxygen Flow Rate (L/min) 15 15 Fraction of Inspired Oxygen (FIO2) 100 12/10/23 21:27 12/10/23 21:45 12/10/23 22:00 Temperature 98.2 F Temperature Source Axillary Pulse Rate 99 14 L Respiratory Rate 14 101 H Respiratory Effort Normal Non-Labored Respiratory Depth Normal Respiratory Pattern Normal Blood Pressure 101/79 97/73 Blood Pressure Mean 86 81 Pulse Ox 92 92 Oxygen Delivery Method Mechanical Ventilator Mechanical Ventilator Mechanical Ventilator Oxygen Flow Rate (L/min) Fraction of Inspired Oxygen (FIO2) 100 12/10/23 20:48 12/10/23 21:01 12/10/23 21:01 Temperature Temperature Source Pulse Rate 99 Respiratory Rate 20 H Respiratory Effort Respiratory Depth Respiratory Pattern Blood Pressure 147/80 H 147/80 H Blood Pressure Mean 91 91 Pulse Ox 91 Oxygen Delivery Method Oxygen Flow Rate (L/min) Fraction of Inspired Oxygen (FIO2) 12/10/23 21:12 12/10/23 21:15 12/10/23 21:30 Temperature Temperature Source Pulse Rate 103 H 100 96 Respiratory Rate 21 H 19 H 14 Respiratory Effort Respiratory Depth Respiratory Pattern Blood Pressure 111/78 95/59 L Blood Pressure Mean 87 72 Pulse Ox 81 Oxygen Delivery Method Oxygen Flow Rate (L/min) Fraction of Inspired Oxygen (FIO2) 12/10/23 21:45 12/10/23 21:55 12/10/23 21:25 Temperature Temperature Source Pulse Rate 100 99 97 Respiratory Rate 11 L 13 14 Respiratory Effort Respiratory Depth Respiratory Pattern Normal Blood Pressure 92/78 101/79 Blood Pressure Mean 84 87 Pulse Ox 68 90 Oxygen Delivery Method Oxygen Flow Rate (L/min) Fraction of Inspired Oxygen (FIO2) 100 12/10/23 23:00 12/10/23 22:00 12/10/23 22:10 Temperature 97.8 F Temperature Source Temporal Pulse Rate 95 102 H 102 H Respiratory Rate 14 14 14 Respiratory Effort Respiratory Depth Respiratory Pattern Blood Pressure 83/59 L 97/73 98/63 Blood Pressure Mean 67 81 70 Pulse Ox 98 91 Oxygen Delivery Method Mechanical Ventilator Mechanical Ventilator Oxygen Flow Rate (L/min) Fraction of Inspired Oxygen (FIO2) 100 100 12/10/23 22:15 12/10/23 22:20 12/10/23 22:28 Temperature Temperature Source Pulse Rate 103 H 102 H 103 H Respiratory Rate 14 14 14 Respiratory Effort Respiratory Depth Respiratory Pattern Blood Pressure 88/64 L 91/57 L Blood Pressure Mean 73 69 Pulse Ox Oxygen Delivery Method Oxygen Flow Rate (L/min) Fraction of Inspired Oxygen (FIO2) 12/10/23 22:30 Temperature Temperature Source Pulse Rate 102 H Respiratory Rate 14 Respiratory Effort Respiratory Depth Respiratory Pattern Blood Pressure 108/72 Blood Pressure Mean 84 Pulse Ox 91 Oxygen Delivery Method Mechanical Ventilator Oxygen Flow Rate (L/min) Fraction of Inspired Oxygen (FIO2) 100 Constitutional Narrative: Patient on arrival protecting his airway, there was slight cyanosis to the face region, he was having purposeful movement with head and arms for initial evaluation. HEENT HEENT Narrative: Poor dentition with moist mucosal membranes. Dried emesis noted at the mental region. Eyes Eyes Narrative: No deviation of the eyes. Pupils 2 mm bilaterally and reactive. Chest Wall inspection of chest normal and palpation of chest normal Cardio regular rate and regular rhythm GI normal to inspection, nondistended, normoactive bowel sounds GI Narrative: Mild distention of the abdomen. No rigidity. Neuro Neuro Narrative: Unable to follow commands moving all 4 extremities. Skin no rashes or lesions noted MDM MDM MDM Narrative Medical decision making narrative: Interventions / MDM: Differential diagnosis: Septic shock, multiorgan failure, aspiration pneumonia, hypercapnia, polysubstance use. Diagnosis considered but do not suspect: My EKG interpretation: Sinus rate of 101, no ST changes, T wave inversions anterior leads. Imaging independently reviewed and interpreted by myself: CT brain: No acute process. Initial 1 view chest x-ray: No acute process. Postintubation chest x-ray 1 view: ET tube above jorge, right lower lobe infiltrative findings. External documents reviewed: N/A Test considered but not ordered:N/A ED course: Patient unresponsive on arrival questionable alcohol or drug use. He is protecting his airway. Blood pressure 145/92 temp was normal at 98.4. He is placed on a nonrebreather for hypoxia. Blood gas ordered. Sepsis labs ordered including CT scan of the head. Talk screen, alcohol levels, Landry catheter ordered. Chest x-ray ordered. ABG returned pH 6.9 CO2 124. Upon return from CT scan I did discuss with family for intubation for airway protection. Airway was secured however significant secretions in the posterior pharynx requiring suctioning along with fluid through the ET tube being suction. Confirming concerns for aspiration. Is covered with Unasyn and vancomycin for broad coverage. White count returned at 26,000. INR 5.3, lactic acid 9.8 creatinine 2.9 potassium 5.3. Elevated liver enzymes. CK level 522. Troponin 93. Ammonia level of 139. 1020: Patient multiorgan failure discussed with family attempt for central line for access potential decompensation. This was attempted right IJ ultrasound-guided, dark blood did return however unable to thread the wire, his MAP was 84. He is getting fluid boluses and responding. He is on a fentanyl drip. 2250: I spoke with telemetry ICU physician Dr. Porras, discussed patient's history and findings agree with current workup and treatment. He recommended thiamine folate IV empirically. Agrees with bicarb drip to be started. Peripheral pressors can be started as needed. Recommend noncontrast CT chest abdomen pelvis to assist with with his multiorgan failure evaluation. Intubation: Emergent. Discussed with family after return from CT. RSI etomidate 20 mg, succinylcholine 100 mg. Glideoscope. Use secretions in the airway this was suctioned, 7.5 [place] tube was placed into the airway. Confirmed position bilateral breath sounds capnography return however there is fluid return requiring suctioning. Secured at 24 cm at the lips. Central line placement: Emergent discussed with family. Preprocedure ultrasound was small IJ's bilaterally compared to carotids. Full sterile gown performed. Patient placed in Trendelenburg, skin was anesthetized, ultrasound-guided Seldinger technique, initial puncture of dark blood return, however blood stopped returning. Redirected with needles, dark blood return, attempted threading of wire multiple times with drawling of dark blood however there was resistance. Procedure was halted to prevent any injuries with elevated INR. Dressing was placed with Tegaderm, there is no active bleeding. 2330: Repeat ABG: pH 7.1, CO2 73, pO2 108. Re-evaluation: Critical Disposition discussed with patient/family/significant other: Family Case discussed with consulting clinician: Telemetry ICU, Dr. Porras, hospitalist This note was generated with [employer] dictation software. It may contain incorrect words, spelling, and punctuation that were not noted in checking the note before signing. Lab Data Attestation: I reviewed the patient's lab results. Labs: Laboratory Results - last 24 hr 12/10/23 12/10/23 20:45 20:50 WBC 25.9 H RBC 4.95 Hgb 15.7 Hct 54.0 MCV 109.1 H MCH 31.7 MCHC 29.1 L RDW Std Deviation 60.7 H RDW Coeff of Elaine 15.0 H Plt Count 216 MPV 10.4 Immature Gran % (Auto) 1.000 H Neut % (Auto) 85.3 H Lymph % (Auto) 4.0 L [place] % (Auto) 9.3 Eos % (Auto) 0.0 Baso % (Auto) 0.4 Absolute Neuts (auto) 22.1 H Absolute Lymphs (auto) 1.03 Nucleated RBC % 0.2 Differential Comment SCANNED Diff Path Review December foll PT 47.8 H INR 5.3 H* APTT 35.6 Sodium 137 Potassium 5.3 H Chloride 98 Carbon Dioxide 26.0 Anion Gap 13 BUN 48 H Creatinine 2.98 H Estim Creat Clear Calc 30.93 Est GFR (MDRD) Af Amer 28 L Est GFR (MDRD) Non-Af 23 L BUN/Creatinine Ratio 16.1 Glucose 47 L Lactic Acid 9.8 H* Calcium 8.4 L Total Bilirubin 5.10 H AST 3585 H ALT 972 H Alkaline Phosphatase 100 Ammonia 139.0 H Total Creatine Kinase 522 H Troponin I High Sens 93 H Total Protein 6.9 Albumin 3.4 Globulin 3.5 Albumin/Globulin Ratio 1.0 Urine Color Yellow Urine Clarity Sl. Cloudy Urine pH 5.0 Ur Specific [place] 1.025 Urine Protein 500 H Urine Glucose (UA) Normal Urine Ketones 5 H Urine Occult Blood 150 H Urine Nitrite Negative Urine Bilirubin 1 H Urine Urobilinogen 4 H Ur Leukocyte Esterase 25 H Urine RBC 10-25 SEEN Urine WBC 0-5 SEEN Ur Squamous Epith Cells 0 SEEN Urine Bacteria 0 SEEN Urine Mucus 0 SEEN Urine Opiates Screen NEGATIVE Urine Methadone Screen NEGATIVE Ur Barbiturates Screen NEGATIVE Ur Phencyclidine Scrn NEGATIVE Ur Amphetamines Screen POSITIVE H MDMA (Ecstasy) Screen POSITIVE H U Benzodiazepines Scrn POSITIVE H Urine Cocaine Screen NEGATIVE U Cannabinoids Screen POSITIVE H Ur Drug Screen Comment Ethyl Alcohol 4.0 ABG Data ABG results: ABG 12/10/23 20:59 Specimen Type ART Sample Site R Radial pH 6.90 L* Bicarbonate Actual 24.4 Total CO2 28 Base Excess -8 L O2 Saturation 89 L O2 % 100.0 ABG pCO2 124.4 H* ABG pO2 97 Yong Test Positive O2 Delivery Device NRB Vent Mode Not entered Crit Call To/Read Back Yes Radiography Diagnostic Testing: Clinical Impression(s) from Imaging Studies Brain CT 12/10/23 20:42 IMPRESSION: No acute intracranial hemorrhage in this noncontrast head CT. Bilateral anterior maxillary dental root lucencies consistent with dental root abscess formation. Sinus disease. Electronically Signed: David Rondon MD at 21:58 EDT , Chest X-Ray 12/10/23 21:04 IMPRESSION: Diffuse interstitial process, suggesting pulmonary edema given venous congestion and cardiomegaly. Infectious etiology is not excluded. Numerous left lower lung lucencies, most consistent with blebs and bulla. Electronically Signed: David Rondon MD at 22:56 EDT , Chest X-Ray 12/10/23 21:37 IMPRESSION: Endotracheal tube tip is approximately 26 mm from the jorge. Again noted interstitial process, suggesting pulmonary edema given venous congestion and cardiomegaly. Infectious etiology is not excluded. Numerous left lower lung lucencies, most consistent with blebs and bulla. Electronically Signed: David Rondon MD at 22:58 EDT , Critical Care Time Critical Care Time: Yes Critical care time (excluding procedures): 30-74 minutes, Discussing w/Patient &/or Family/It Network Administrator, Discussing w/Consultants, Arranging Admission or Transfer and Performing Direct Patient Care at Bedside Discharge Plan Dx/Rx/DC Orders Clinical Impression: SIGRID (acute kidney injury), Acute hypercapnic respiratory failure, Multi-organ failure with liver failure, Aspiration into airway, Septic shock, Hyperammonemia, Polysubstance abuse, Acidosis, lactic Disposition Disposition: [facility]
[2023-12-10] MEDS: Vancomycin HCl 2,000 MG in 0.9% Normal Saline (500mL Bag) 500 ML 250 MG IV (22:51)
--- NOTE | 2023-12-10 22:58 | CT_ITS ---
INDICATION: unresponsive COMPARISON: Chest radiograph same day. A radiation dose optimization technique was used for this scan. RADIATION DOSAGE (If Supplied By Facility): CTDIvol/DLP = ( 18.77 ) / ( 1720.39 ) mGy/mGycm FINDINGS: Noncontrast serial CT axial images through the chest, abdomen, and pelvis with coronal and sagittal reformatted series. MEDIASTINUM: Cardiomegaly. Endotracheal tube tip is 33 mm from the jorge. Enteric tube tip terminates within the mid gastric lumen. Noncontrast mediastinum is unremarkable. AORTA/GREAT VESSELS: No obvious acute thoracoabdominal aortic abnormality in this noncontrast examination. LUNG PARENCHYMA: Left greater than right patchy and nodular dense airspace disease. Diffuse emphysematous lung changes with few scattered large blebs of the lung bases. However, a few of these at the left lung base appear to be thick-walled. PLEURA: No pleural effusion. No pneumothorax. PANCREAS: No peripancreatic fat stranding. BOWEL/MESENTERY: No dilated bowel loops. Mild scattered pockets of ascites throughout the abdomen. No free air. GALLBLADDER: No pericholecystic fat stranding. LIVER/STOMACH: No obvious abnormality. URINARY COLLECTING SYSTEM/ KIDNEYS: No evidence of urinary collecting system obstruction. No significant renal parenchymal abnormality. Landry catheter balloon tip within nondistended urinary bladder. APPENDIX: Not well visualized. ADRENALS: Bilateral adrenal adenomas. BONES: Unremarkable for age. CT/CT Chest, Abd, Pelvis WO Cont IMPRESSION: Left greater than right patchy and nodular dense airspace disease, to include pneumonia. Diffuse emphysematous lung changes with few scattered large blebs of the lung bases. However, a few of these at the left lung base appear to be thick-walled, which may simply be secondary to associated airspace disease, although cavitary lesions are not excluded. Endotracheal tube tip is 33 mm from the jorge. Mild diffuse ascites. Bilateral adrenal adenomas. Electronically Signed: David Rondon MD at 1:12 EDT ,
[2023-12-10] MEDS: Succinylcholine Chloride 200 MG/10 ML SYRINGE 100 MG IV (23:00)
[2023-12-10] MEDS: Etomidate 20 MG/10 ML Vial IV (23:01)
--- NOTE | 2023-12-10 23:24 | PCM.HP.STD ---
HPI - General General Date of Admission: 12/10/23 HPI Narrative RONNIE KATZ, is a 58 M who presents to the hospital for being found unresponsive by family. En route to the hospital he had to be bagged by EMS, at that time his blood sugar was 84 and he was given a 1 mg dose of Narcan without any response. Unfortunately unable to obtain any more history as he is currently intubated and family is no longer at bedside. History was obtained by chart review and discussion with the ED physician. Apparently he was texting with his mother earlier this afternoon and everything seemed to be normal so is unclear as to what caused him to become unresponsive. He did test positive for several drugs including benzodiazepines, marijuana, ecstasy though alcohol was normal. Family states that he used to have drug use issues but they were not aware that he was still using. There is a likelihood of aspiration pneumonia as during the process of intubation extensive suctioning was necessary to be able to visualize the vocal cords. Lab work does indicate septic etiology as his white count is 25.9 and his lactic acid is 9.8. He also shows extensive liver injury with an INR of 5.3 while not being on Coumadin and elevated LFTs. Initial ABG with a pH of 6.9 and CO2 of 124. He was also found to be in renal failure with a creatinine of 2.98. At the time of my evaluation he was in the middle of receiving his sepsis bolus fluids, his mean arterial pressures are greater than 65. [facility] Medical History (Updated 12/11/23 @ 00:[address] Darrell Ponce MD) COPD (chronic obstructive pulmonary disease) Medical History unable to obtain Home Medications aripiprazole 5 mg tablet 5 mg PO DAILY mental health 09/04/20 [History Last Taken 09/03/20 09:00] sertraline 100 mg tablet 200 mg PO DAILY depression 09/04/20 [History Last Taken 09/03/20 09:00] Allergy/AdvReac Type Severity Reaction Status Date / Time No Known Allergies Allergy Verified 12/10/23 21:31 Family History unable to obtain unable to obtain Surgical History unable to obtain unable to obtain Social History Smoking Status: Unknown if ever smoked ROS Review of Systems ROS Unobtainable: due to endotracheal tube Vital Signs Vital Signs Vital Signs: 12/10/23 20:40 12/10/23 20:46 12/10/23 20:46 Temperature 98.4 F Temperature Source Oral Pulse Rate 100 100 Respiratory Rate 16 16 Respiratory Effort Respiratory Depth Respiratory Pattern Blood Pressure 145/92 H 147/90 H Blood Pressure Mean 109 109 Pulse Ox 73 91 Oxygen Delivery Method Room Air Ambu-Bag Ambu-Bag Oxygen Flow Rate (L/min) Fraction of Inspired Oxygen (FIO2) 12/10/23 20:50 12/10/23 20:45 12/10/23 21:23 Temperature 98.4 F Temperature Source Oral Pulse Rate 100 96 Respiratory Rate 16 14 Respiratory Effort Respiratory Depth Respiratory Pattern Blood Pressure 147/90 H 111/78 Blood Pressure Mean 109 89 Pulse Ox 95 94 Oxygen Delivery Method Non-Rebreather Non-Rebreather Mechanical Ventilator Oxygen Flow Rate (L/min) 15 15 Fraction of Inspired Oxygen (FIO2) 100 12/10/23 21:27 12/10/23 21:45 12/10/23 22:00 Temperature 98.2 F Temperature Source Axillary Pulse Rate 99 14 L Respiratory Rate 14 101 H Respiratory Effort Normal Non-Labored Respiratory Depth Normal Respiratory Pattern Normal Blood Pressure 101/79 97/73 Blood Pressure Mean 86 81 Pulse Ox 92 92 Oxygen Delivery Method Mechanical Ventilator Mechanical Ventilator Mechanical Ventilator Oxygen Flow Rate (L/min) Fraction of Inspired Oxygen (FIO2) 100 12/10/23 20:48 12/10/23 21:01 12/10/23 21:01 Temperature Temperature Source Pulse Rate 99 Respiratory Rate 20 H Respiratory Effort Respiratory Depth Respiratory Pattern Blood Pressure 147/80 H 147/80 H Blood Pressure Mean 91 91 Pulse Ox 91 Oxygen Delivery Method Oxygen Flow Rate (L/min) Fraction of Inspired Oxygen (FIO2) 12/10/23 21:12 12/10/23 21:15 12/10/23 21:30 Temperature Temperature Source Pulse Rate 103 H 100 96 Respiratory Rate 21 H 19 H 14 Respiratory Effort Respiratory Depth Respiratory Pattern Blood Pressure 111/78 95/59 L Blood Pressure Mean 87 72 Pulse Ox 81 Oxygen Delivery Method Oxygen Flow Rate (L/min) Fraction of Inspired Oxygen (FIO2) 12/10/23 21:45 12/10/23 21:55 12/10/23 21:25 Temperature Temperature Source Pulse Rate 100 99 97 Respiratory Rate 11 L 13 14 Respiratory Effort Respiratory Depth Respiratory Pattern Normal Blood Pressure 92/78 101/79 Blood Pressure Mean 84 87 Pulse Ox 68 90 Oxygen Delivery Method Oxygen Flow Rate (L/min) Fraction of Inspired Oxygen (FIO2) 100 12/10/23 23:00 12/10/23 22:00 12/10/23 22:10 Temperature 97.8 F Temperature Source Temporal Pulse Rate 95 102 H 102 H Respiratory Rate 14 14 14 Respiratory Effort Respiratory Depth Respiratory Pattern Blood Pressure 83/59 L 97/73 98/63 Blood Pressure Mean 67 81 70 Pulse Ox 98 91 Oxygen Delivery Method Mechanical Ventilator Mechanical Ventilator Oxygen Flow Rate (L/min) Fraction of Inspired Oxygen (FIO2) 100 100 12/10/23 22:15 12/10/23 22:20 12/10/23 22:28 Temperature Temperature Source Pulse Rate 103 H 102 H 103 H Respiratory Rate 14 14 14 Respiratory Effort Respiratory Depth Respiratory Pattern Blood Pressure 88/64 L 91/57 L Blood Pressure Mean 73 69 Pulse Ox Oxygen Delivery Method Oxygen Flow Rate (L/min) Fraction of Inspired Oxygen (FIO2) 12/10/23 22:30 12/10/23 23:22 Temperature 98.2 F Temperature Source Pulse Rate 102 H 96 Respiratory Rate 14 14 Respiratory Effort Respiratory Depth Respiratory Pattern Blood Pressure 108/72 93/64 Blood Pressure Mean 84 73 Pulse Ox 91 96 Oxygen Delivery Method Mechanical Ventilator Oxygen Flow Rate (L/min) Fraction of Inspired Oxygen (FIO2) 100 Weight Weight: 199 lb 4.766 oz Body Mass Index (BMI) 28.5 Physical Exam Const General Appearance: intubated and patient mechanically ventilated HEENT normocephalic Eyes PERRL and conjunctivae normal Neck supple and no JVD Resp normal respiratory effort, no retractions and no use of accessory muscles Auscultation: rhonchi and wheezes; Negative for crackles or rales Cardio regular rate, regular rhythm, S1 normal heart sound, S2 normal heart sound and no murmurs GI soft to palpation and non-distended; Negative for hepatosplenomegaly Extremity no clubbing, cyanosis or edema Skin Skin Narrative: Purplish discoloration to bilateral kneecaps Neuro Sensorium / Orientation: sedated on vent Psych Appearance: intubated Results Lab / Micro Data 12/10/23 20:45 12/10/23 20:45 Labs: Laboratory Results - last 24 hr 12/10/23 20:45: WBC 25.9 H, RBC 4.95, Hgb 15.7, Hct 54.0, MCV 109.1 H, MCH 31.7, MCHC 29.1 L, RDW Std Deviation 60.7 H, RDW Coeff of Elaine 15.0 H, Plt Count 216, MPV 10.4, Immature Gran % (Auto) 1.000 H, Neut % (Auto) 85.3 H, Lymph % (Auto) 4.0 L, [place] % (Auto) 9.3, Eos % (Auto) 0.0, Baso % (Auto) 0.4, Absolute Neuts (auto) 22.1 H, Absolute Lymphs (auto) 1.03, Nucleated RBC % 0.2, Differential Comment SCANNED, Diff Path Review December, PT 47.8 H, INR 5.3 H*, APTT 35.6, Sodium 137, Potassium 5.3 H, Chloride 98, Carbon Dioxide 26.0, Anion Gap 13, BUN 48 H, Creatinine 2.98 H, Estim Creat Clear Calc 30.93, Est GFR (MDRD) Af Amer 28 L, Est GFR (MDRD) Non-Af 23 L, BUN/Creatinine Ratio 16.1, Glucose 47 L, Lactic Acid 9.8 H*, Calcium 8.4 L, Total Bilirubin 5.10 H, AST 3585 H, ALT 972 H, Alkaline Phosphatase 100, Total Creatine Kinase 522 H, Troponin I High Sens 93 H, Total Protein 6.9, Albumin 3.4, Globulin 3.5, Albumin/Globulin Ratio 1.0, Ethyl Alcohol 4.0 16 20:50: Ammonia 139.0 H, Urine Color Yellow, Urine Clarity Sl. Cloudy, Urine pH 5.0, Ur Specific [place] 1.025, Urine Protein 500 H, Urine Glucose (UA) Normal, Urine Ketones 5 H, Urine Occult Blood 150 H, Urine Nitrite Negative, Urine Bilirubin 1 H, Urine Urobilinogen 4 H, Ur Leukocyte Esterase 25 H, Urine RBC 10-25 SEEN, Urine WBC 0-5 SEEN, Ur Squamous Epith Cells 0 SEEN, Urine Bacteria 0 SEEN, Urine Mucus 0 SEEN, Urine Opiates Screen NEGATIVE, Urine Methadone Screen NEGATIVE, Ur Barbiturates Screen NEGATIVE, Ur Phencyclidine Scrn NEGATIVE, Ur Amphetamines Screen POSITIVE H, MDMA (Ecstasy) Screen POSITIVE H, U Benzodiazepines Scrn POSITIVE H, Urine Cocaine Screen NEGATIVE, U Cannabinoids Screen POSITIVE H, Ur Drug Screen Comment Micro: Microbiology 12/10/23 20:50 Mucosa - Nose SARS-CoV-2, Influenza & RSV (PCR) - Final ABG Data ABG results: ABG 12/10/23 20:59 Specimen Type ART Sample Site R Radial pH 6.90 L* Bicarbonate Actual 24.4 Total CO2 28 Base Excess -8 L O2 Saturation 89 L O2 % 100.0 ABG pCO2 124.4 H* ABG pO2 97 Yong Test Positive O2 Delivery Device NRB Vent Mode Not entered Crit Call To/Read Back Yes Imaging Radiology Impression Brain CT 12/10/23 20:42 IMPRESSION: No acute intracranial hemorrhage in this noncontrast head CT. Bilateral anterior maxillary dental root lucencies consistent with dental root abscess formation. Sinus disease. Electronically Signed: David Rondon MD at 21:58 EDT , Chest X-Ray 12/10/23 21:04 IMPRESSION: Diffuse interstitial process, suggesting pulmonary edema given venous congestion and cardiomegaly. Infectious etiology is not excluded. Numerous left lower lung lucencies, most consistent with blebs and bulla. Electronically Signed: David Rondon MD at 22:56 EDT , Chest X-Ray 12/10/23 21:37 IMPRESSION: Endotracheal tube tip is approximately 26 mm from the jorge. Again noted interstitial process, suggesting pulmonary edema given venous congestion and cardiomegaly. Infectious etiology is not excluded. Numerous left lower lung lucencies, most consistent with blebs and bulla. Electronically Signed: David Rondon MD at 22:58 EDT , Assessment & Plan Assessment/Plan (1) Polysubstance abuse: (2) Septic shock: PLAN: Plan 1. Septic shock secondary to aspiration pneumonia complicated by drug use with acute hypoxic and hypercapnic respiratory failure/shock liver/acute renal failure ? Will continue with Unasyn and vancomycin IV, pancultures are pending ? Admit to ICU with consult to the tap and die maker technician ? Continue with mechanical ventilation, his pH has improved with both mechanical ventilation as well as the bicarb drip from 6.9 up to 7.11 and his ABG is improved from 124 down to 73 ? INR is 5.3 with an AST of 3500 and ALT of 972 and total bilirubin of 5.1, given his shock liver we will consult gastroenterology. Ratio indicates alcoholic induced injuries so we will place him on folic acid and thiamine ? He was unresponsive to IV fluids, he did complete 2700 cc of normal saline as well as being placed on sodium bicarb drip and his mean arterial pressures were 60 with systolics in the 70s therefore we will start him on Levophed ? Continue with mechanical ventilation on fentanyl and propofol ? Total creatine kinase is slightly elevated to 522 with a troponin of 93 with his bradycardia is improved with IV fluid administration and pressor support ? OG tube is in place, continue with Pepcid ? Given how elevated his INR is we will hold off on any DVT prophylaxis, given the severity of his INR elevation will provide with vitamin K ? It appears that his baseline creatinine is around 0.58 in 2020 currently 2.98, will continue with IV fluids monitor 2. History of depression and other mood disorders ? He may have been on Abilify and Zoloft in the past DVT: Supratherapeutic INR Sepsis Attestation Date exam was performed: 12/10/23 Time exam was performed: 23:00 Possible Source of Sepsis: Pulmonary Sepsis Organ Dysfunction Criteria Present: SBP < 90 mmHg or MAP < 65 mmHg, Acute Respiratory Failure (New need for BiPAP/CPAP or MV), Creatinine > 2.0 mg/dL, Total Bilirubin > 2 mg/dl, INR > 1.5 or aPTT > 60 sec and Lactic Acid > 2 mmol/L Fluid Resuscitation Fluid resuscitation indicated?: Yes Fluid Resuscitation ordered: 30 ml/kg fluid bolus ordered Sepsis Note Date exam was performed: 12/11/23 Time exam was performed: 00:30 Sepsis Attestation: Sepsis re-evaluation was performed Response to fluids: Non Fluid responsive hypotension and Vasopressors started Charges/Coding Visit Charges Inpatient E&M: 79405 Init Hosp L3
[2023-12-10 23:28] LABS: Allen Test Positive; Base Excess -6 mmol/L (-2 to +2); Bicarbonate 23.2 mmol/L (22-26); Blood Gas Specimen Type ART; Mode AC; O2 Delivery Device Adult Vent; PEEP 8; PO2 109 mmHG (75-100); RR 14; SITE R Radial; SO2 96 % (95-99); Time Given 23:26:14; Total Carbon Dioxide 26 mmol/L; pCO2 73.3 mmHg (35-45); pH 7.11 (7.35-7.45)
[2023-12-11] VITALS (47 sets, daily range): BP systolic 72–104; BP diastolic 52–79; PULSE 94–106; RESP 14–16; TEMP 36.4–37.1; O2SAT 92–99; BMI 28.7
[2023-12-11] MEDS: Sodium Bicarbonate 50 MEQ in Dextrose 5%-Water (1000mL Bag) 1,000 ML 150 MEQ IV ×4 (00:02→22:00)
[2023-12-11] MEDS: Folic Acid 1 MG in 0.9% Normal Saline (50mL Bag) 50 ML 200 MG IV ×2 (00:04→10:38)
[2023-12-11] MEDS: 0.9% Normal Saline (500mL Bag) 500 ML 999 ML IV (00:15)
--- NOTE | 2023-12-11 00:15 | ED.RN ---
Dr. Limon updated on pt's blood pressure. Verbal order 500ml NSx1.
--- NOTE | 2023-12-11 00:25 | ED.RN ---
Dr. Leal updated on BP's and fluids being completed. New order to hang Levophed 5mcg/min and watch till 1am to make sure pt responds to medications.
[2023-12-11] MEDS: Thiamine Hydrochloride 100 MG in 0.9% Normal Saline (50mL Bag) 50 ML 200 MG IV ×2 (00:38→09:41)
[2023-12-11] MEDS: Norepinephrine 8 MG in 0.9% Normal Saline (250mL Bag) 242 ML 9.4 MG CONT INF ×2 (00:41→16:05)
[2023-12-11 00:50] LABS: Reflex Lactate? Y
[2023-12-11] MEDS: Propofol 10MG/Ml 1,000 MG/100 ML Bottle 5.4 MG CONT INF (01:45)
[2023-12-11 01:55] LABS: Lactic Acid 5.9 mmol/L (0.4-1.9)
[2023-12-11] MEDS: Phytonadione (Vit K1) 5 MG TABLET PO (02:10)
--- NOTE | 2023-12-11 02:10 | PCM.RX.CS ---
Consult Antibiotic Management Pharmacy has been consulted to manage selected antibiotic: Vancomycin Type of Intervention Type of Consult: New start Suspected Infection Suspected Infection: Sepsis Labs Labs: Sodium 137 mmol/L (136-145) 12/10/23 20:45 Potassium 5.3 mmol/L (3.5-5.1) H 12/10/23 20:45 Chloride 98 mmol/L (98-107) 12/10/23 20:45 Carbon Dioxide 26.0 mmol/L (21.0-32.0) 12/10/23 20:45 Anion Gap 13 (5-15) 12/10/23 20:45 BUN 48 mg/dL (7-18) H 12/10/23 20:45 Creatinine 2.98 mg/dL (0.70-1.30) H 12/10/23 20:45 Est GFR (MDRD) Af Amer 28 mL/min (>60) L 12/10/23 20:45 Est GFR (MDRD) Non-Af 23 mL/min (>60) L 12/10/23 20:45 BUN/Creatinine Ratio 16.1 RATIO (10-20) 12/10/23 20:45 Glucose 47 mg/dL (74-106) L 12/10/23 20:45 Microbiology Microbiology: Microbiology 12/10/23 20:50 Mucosa - Nose SARS-CoV-2, Influenza & RSV (PCR) - Final Dosing Weight Weight used for dosin.7 kg Estimated Creatinine Clearance Estimated Creatinine Clearance: 31 Goal Trough Goal Trough: 15-20 mcg/mL Pharmacy Plan for Drug Dosing Pharmacy Plan for Drug Dosing: Pharmacy Service will continue to monitor and adjust dosing as required. Follow-Up Labs Follow-Up Labs: Trough: Vancomycin Date/Time Labs Ordered Labs to be done on [date and time ordered]: 12/12/23 @4253
[2023-12-11] MEDS: 0.9% Normal Saline (1000mL) 1,000 ML 999 ML IV (03:12)
--- NOTE | 2023-12-11 04:52 | US_ITS ---
INDICATION: acute liver and renal failure EXAMINATION: Ultrasound US Abdomen Complete TECHNIQUE: Riggs-scale and color Doppler imaging was performed of the abdomen. COMPARISON: CT scan of the abdomen and pelvis of 12/10/2023. FINDINGS: LIVER: The liver is normal in size and echogenicity measuring about 16.7 cm in length. The portal vein is patent with normal hepatopedal flow. No focal hepatic lesion. No intrahepatic biliary ductal dilatation. There is mild to moderate ascites. GALLBLADDER AND BILIARY TREE: No shadowing gallstone, pericholecystic fluid or gallbladder wall thickening is demonstrated. The gallbladder wall measures 3.3 mm. The proximal common bile duct measures 3.6 mm, which is within normal limits for the patient''s age. SONOGRAPHIC ARREOLA''S SIGN: Negative. PANCREAS: Pancreas appears to be somewhat echogenic in texture. SPLEEN: The spleen is normal in size measuring about 10.6 cm in length and homogeneous in echotexture. KIDNEYS: There is no hydronephrosis. No shadowing calculus, focal lesion, or perinephric collection is demonstrated. The right kidney measures 11 cm in length. The left kidney measures 10.7 cm. VESSELS: The proximal abdominal aorta is borderline measuring about 2.6 cm in transverse diameter. The distal abdominal aorta is obscured by bowel gas. The IVC is patent. US/Abdomen Complete IMPRESSION: 1. Mild to moderate ascites. 2. Otherwise essentially unremarkable examination. Electronically Signed: Vickey Schofield MD at 12:30 EDT ,
--- NOTE | 2023-12-11 04:52 | ECHOD_ITS ---
Reason For Study: SHOCK Procedure This was a 2D Doppler, Color Flow transthoracic echocardiogram. Patient was scanned in supine position during reflux assessment. Exam performed portable in ICU/CCU. Left Ventricle Normal LV size. D shaped septum in systole and diastole. The estimated ejection fraction is 45 %. Right Ventricle Moderately dilated right ventricle. Moderate global right ventricular systolic dysfunction. Atria Normal left atrium. Normal right atrium. Mitral Valve Normal mitral valve. Tricuspid Valve Normal tricuspid valve. Mild (1+) tricuspid valve insufficiency. Pulmonary artery systolic pressure is 30 mmHg. Aortic Valve Trisinus/trileaflet aortic valve. Pulmonic Valve Normal pulmonic valve. Great Vessels Normal aortic root. The pulmonary artery is normal size. Inferior vena cava collapse with respiration. Pericardium/Pleural No pericardial effusion. MMode/2D Measurements & Calculations LVIDd: 4.7 cm IVSd: 1.2 cm Ao root diam: 3.1 cm LVIDs: 3.0 cm LVPWd: 0.90 cm RVDd: 4.7 cm FS: 37.3 % LAV(MOD-bp): 30.2 ml LVAd ap4: 23.4 cm2 LVAd ap2: 28.0 cm2 LAV(MOD-bp) Indexed: 14.5 ml/m2 LVLd ap4: 7.0 cm LVLd ap2: 6.9 cm LAV(MOD-sp2): 26.2 ml EDV(MOD-sp4): 65.5 ml EDV(MOD-sp2): 96.7 ml LAV(MOD-sp4): 29.2 ml EDV(sp4-el): 66.0 ml EDV(sp2-el): 96.7 ml LVAs ap4: 16.0 cm2 LVAs ap2: 18.8 cm2 LVLs ap4: 6.1 cm LVLs ap2: 5.9 cm ESV(MOD-sp4): 34.1 ml ESV(MOD-sp2): 52.1 ml ESV(sp4-el): 35.8 ml ESV(sp2-el): 50.6 ml EF(MOD-sp4): 47.9 % EF(MOD-sp2): 46.1 % EF(sp4-el): 45.8 % SV(MOD-sp4): 31.3 ml SV(MOD-sp2): 44.6 ml SV(sp4-el): 30.2 ml LA dimension(2D): 3.6 cm LA A4 area: 13.3 cm2 RA A4 area: 23.6 cm2 TAPSE: 1.3 cm Time Measurements MV dec time: 0.15 sec Doppler Measurements & Calculations MV E max ramírez: 49.0 cm/sec Lat Peak E' Ramírez: 7.5 cm/sec Med Peak E' Ramírez: 5.0 cm/sec MV A max ramírez: 49.0 cm/sec E/E' lat: 6.5 E/E' med: 9.7 MV E/A: 1.0 MV dec slope: 323.7 cm/sec2 Ao V2 max: 173.9 cm/sec LV V1 max: 80.2 cm/sec Ao max P.1 mmHg LV V1 max P.6 mmHg Ao V2 mean: 115.5 cm/sec LV V1 mean P.5 mmHg Ao mean P.0 mmHg LV V1 mean: 59.1 cm/sec Ao V2 VTI: 18.0 cm LV V1 VTI: 7.5 cm AV (velocity ratio): 0.42 PA V2 max: 87.9 cm/sec TR max ramírez: 250.3 cm/sec PA max PG (full): 2.2 mmHg TR max P.1 mmHg ECHO/Echo Complete Interpretation Summary Normal LV size. The estimated ejection fraction is 45 %. D shaped septum in systole and diastole. Pulmonary artery systolic pressure is 30 mmHg. Pulmonary pressures are likely an underestimate due to the right ventricular sy stolic dysfunction. Ordering Physician: Rinku Porras Performed By: Rhoda Sanchez RDCS
--- NOTE | 2023-12-11 04:56 | CON.PCM.CC_ITS ---
HPI Consult Data Date of Consult: 12/11/23 HPI Narrative Reason for Consultation: shock with multiorgan failure HPI Narrative: 58Y M PMH polysubstance abuse, reported ETOH abuse who presented altered and profoundly ill. Pt required emergent intubation for airway protection in the ED at which time he was noted to have dark orophargyngeal. Labs revealed severe lactic acidosis and findings c/w acute liver and renal failure. UDS positive for MDMA/methamphetamine/cannabinoid/BZD. ETOH level 0.4. Pt also required initiation of NEpi and HCO3 gtt to manage severe acidosis. Head CT without acute findings noted. CT chest/abd/pelvis notable for scattered Lt > Rt infiltrates on the background of severe emphysematous changes including cystic appearing changes bases. Rt IJ CVC attempted by ED but unable to thread guidewire and procedure aborted due to elevated INR & bleeding risks. He was ultimately admitted to the ICU at which time I was consulted for on-going critical care management. Pt has not made urine since ICU admit. He has mild abdominal distention and cyanotic changes to BL toes and ears. He is minimally responsive at this time. Current drips/vent settings: Fent @ 150 NEpi @ 10 HCO3 gtt @ 150 14 500 8 90 PMH/FH/SH: As per HPI ROS: Unable to obtain due to clinical condition. PE: General: Well developed, acute on chronically ill appearing male; +MV HEENT: icteric Sclera; Rt > Lt nondilated pupils; + ETT, nl nose; poor de ntition; supple neck, no masses Cardiovascular: tachy; No rubs, gallops; no displaced PMI Respiratory: diminished with prolonged exp time and faint wheezes; no rhonchi Abdominal: mild distention noted; no obv guarding; hypoBS x 4; No palpable hepatosplenomegaly Extremities: Warm; peripheral cyanotic changes to toes/ears B/L; capillary refill >2 sec Neurological: sedated A/P: #Acute hypoxemic/hypercapnic respiratory failure: cont MV; settings reviewed; limited ability to hyperventilate to account for severe metabolic acidosis due to concomitant COPD exac; wean FiO2/PEEP as tolerated; daily CXR/ABG; sedation/analgesia to goal #Shock, septic: cont NEpi to keep MAP > 65; add scheduled albumin + stress dose steroids; trend lactate; F/U TTE; broad spectrum emp IV Abx- vanc/Zosyn; F/U pancultures; will need reattempt at CVC +/- arterial line access in AM but would pursue femoral access for easier compressibility given coagulopathy in case bleeding complications #Aspiration PNA: see above #COPD exacerbation: q4h nebs; cont steroids #Acute liver failure: unclear etiology but suspect ischemic or toxin/drug driven process; check hepatitis panel & common coingestants acetaminophen/salicylate; cont steroids/emp IV Abx; consider IV NAC; q4h glucose monitoring; F/U abd US; monitor AST/ALT/Tbili & other liver synthetic function labs & ultimately warrants urgent GI/hepatology eval although not candidate for transplant if on- going worsening due to substance abuse #Acute renal failure: in the setting of above; cont HCO3 gtt; strict I/Os; urgent nephrology consult given high likelihood of needing SIDE LASTER STAPLE #Acute lactic acidosis: down-trending on initial recheck; cont trend #Hyperkalemia: 2* to above; monitor on F/U labs #Elevated troponin: likely demand mismatch 2* to above; F/U TTE & trend Od[place]; not candidate for emp A/C given INR already > 5 #Elevated INR: 2* to above; sp vit K; cont monitoring #Hypoglycemia: 2* to above; needs close at least q4h monitoring for hypo/hyperglycemia given liver failure; ICU BG 140-180 mg/dL #Toxic/metabolic encephalopathy: multifactorial; initial head CT no acute process; cont max supportive measures #Polysubstance abuse (UDS + meth/MDMA/cannabinoid/BZD): cont supportive care #Reported Hx ETOH abuse: sp thiamine/folic acid; monitor for withdrawal syndr omes NPO SCDs Very poor prognosis with high likelihood of despite max supportive measures; discuss appropriate code/goals with family as indicated CCT: 60 min The entirety of this encounter was completed via telemedicine and with the assistance of bedside ICU nurse. [facility] Medical History (Updated 12/11/23 @ 00:[address] Darrell Ponce MD) COPD (chronic obstructive pulmonary disease) Medical History unable to obtain Home Medications aripiprazole 5 mg tablet 5 mg PO DAILY mental health 09/04/20 [History Last Taken 09/03/20 09:00] sertraline 100 mg tablet 200 mg PO DAILY depression 09/04/20 [History Last Taken 09/03/20 09:00] Allergy/AdvReac Type Severity Reaction Status Date / Time No Known Allergies Allergy Verified 12/10/23 21:31 Family History unable to obtain Surgical History unable to obtain Social History Smoking Status: Unknown if ever smoked Objective Data Objective Data Vital Signs: Vital Signs Last response Temperature 36.4 C L 12/11/23 04:00 Temperature Source Temporal 12/11/23 04:00 Pulse Rate 97 12/11/23 04:00 Respiratory Rate 14 12/11/23 04:00 Respiratory Effort Mechanically Ventilated 12/11/23 04:21 Respiratory Depth Normal 12/11/23 04:21 Respiratory Pattern Normal 12/11/23 04:21 Blood Pressure 85/63 L 12/11/23 04:00 Blood Pressure Mean 70 12/11/23 04:00 Blood Pressure Source Monitor 12/11/23 04:00 Blood Pressure Position Semi-Fowlers 12/11/23 04:00 Blood Pressure Location Left Arm 12/11/23 04:00 Pulse Ox 94 12/11/23 04:00 Oxygen Delivery Method Mechanical Ventilator 12/11/23 04:21 Oxygen Flow Rate (L/min) 15 12/10/23 20:50 Fraction of Inspired Oxygen (FIO2) 90 12/11/23 04:21 I&O: I&O Last 24 Hours 12/10/23 12/10/23 12/11/23 11:59 23:59 11:59 Intake Total 1037.58 / 1037.58 4969.60 / 4969.60 Output Total 1000 / 1000 Balance 1037.58 / 1037.58 3969.60 / 3969.60 I&O: Total Stay 12/10/23 20:39 thru 12/11/23 04:19 Intake Total 6007.18 Output Total 1000 Balance 5007.18 Current Meds Ordered / Administered: Current meds ordered / Administered 3 Generic Name Dose Route Start Last Admin Trade Name Freq PRN Reason Stop Dose Admin Albuterol/Ipratropium 3 ml 12/11/23 04:45 Ipratropium/Albuterol Sulfate 3 Ml Ampul.Neb INHALATION Q4H.RT FANY Chlorhexidine Gluconate 15 ml 12/11/23 10:00 Chlorhexidine 15 Ml PO BID FANY Chlorhexidine Gluconate 15 ml 12/11/23 10:00 Chlorhexidine 15 Ml PO BID [facility] Fentanyl Citrate 50 mcg 12/11/23 04:41 Fentanyl 100 Mcg/2 Ml Ampul IV Q2H PRN PRN Pain >/= 4/10 or CPOT>/= 3/8 Hydrocortisone Sodium Succinate 50 mg 12/11/23 06:00 Hydrocortisone Sod Succinate 100 Mg/2 Ml Vial IV Q6 [facility] Fentanyl 100 mls @ 2.5 mls/hr 12/10/23 21:55 12/11/23 04:00 CONT INF 150 mcg/hr UD FANY 15 mls/hr Titration Protocol 25 MCG/HR Sodium Bicarbonate 50 meq/ 1,050 mls @ 150 mls/hr 12/10/23 23:00 12/11/23 00:02 Dextrose IV 150 mls/hr .Q7H FANY Administration Norepinephrine Bitartrate 8 mg 250 mls @ 9.375 mls/hr 12/11/23 00:25 12/11/23 04:00 / Sodium Chloride CONT INF 10 mcg/min .[id number] FANY 18.8 mls/hr Titration Protocol 5 MCG/MIN Vancomycin IV-PHARMACY TO DOSE 500 mls @ 250 mls/hr 12/11/23 01:38 1 each/ Sodium Chloride IV PRN PRN Rx to Dose Protocol Famotidine 20 mg/ Sodium 10 mls @ 300 mls/hr 12/11/23 10:00 Chloride IV Q12 [facility] Folic Acid 1 mg/ Sodium 50.2 mls @ 200 mls/hr 12/11/23 10:00 Chloride IV DAILY [facility] Thiamine HCl 100 mg/ Sodium 51 mls @ 200 mls/hr 12/11/23 10:00 Chloride IV DAILY [facility] Sodium Chloride 250 mls @ 15 mls/hr 12/11/23 01:50 IV .[id number] PRN Additional IVPB Infusion Sodium Chloride 250 mls @ 15 mls/hr 12/11/23 01:50 IV .[id number] PRN Saline Flush Vancomycin HCl 1,250 mg/ 275 mls @ 167 mls/hr 12/11/23 23:00 Sodium Chloride IV Q24H [facility] Midazolam HCl 50 mg/ Sodium 100 mls @ 2 mls/hr 12/11/23 04:45 Chloride CONT INF .Q50H [facility] Protocol 1 MG/HR Albumin Human 25 gm in 100 mls @ 60 mls/hr 12/11/23 04:45 IV 12/13/23 00:24 Q6H FANY Piperacillin Sod/Tazobactam 50.0113 mls @ 100 mls/hr 12/11/23 04:50 Sod 2.25 mg/ Sodium Chloride IV Q8H [facility] Midazolam HCl 2 mg 12/11/23 04:41 Midazolam 2 Mg/2 Ml Syringe IV Q2H PRN PRN sedation Sodium Chloride 10 - 40 ml 12/11/23 01:50 0.9% Saline Lock 10 Ml Syringe IV UD PRN SALINE FLUSH Vancomycin Protocol 1 lab 12/12/23 20:30 Vancomycin Trough/Random Due MC 12/13/23 00:30 DAILY [facility] Lab / Micro Data 12/10/23 20:45 12/10/23 20:45 Labs: Laboratory Results - last 24 hr 12/10/23 20:45: WBC 25.9 H, RBC 4.95, Hgb 15.7, Hct 54.0, MCV 109.1 H, MCH 31.7, MCHC 29.1 L, RDW Std Deviation 60.7 H, RDW Coeff of Elaine 15.0 H, Plt Count 216, MPV 10.4, Immature Gran % (Auto) 1.000 H, Neut % (Auto) 85.3 H, Lymph % (Auto) 4.0 L, Williams % (Auto) 9.3, Eos % (Auto) 0.0, Baso % (Auto) 0.4, Absolute Neuts (auto) 22.1 H, Absolute Lymphs (auto) 1.03, Nucleated RBC % 0.2, Differential Comment SCANNED, Diff Path Review December, PT 47.8 H, INR 5.3 H*, APTT 35.6, Sodium 137, Potassium 5.3 H, Chloride 98, Carbon Dioxide 26.0, Anion Gap 13, BUN 48 H, Creatinine 2.98 H, Estim Creat Clear Calc 30.93, Est GFR (MDRD) Af Amer 28 L, Est GFR (MDRD) Non-Af 23 L, BUN/Creatinine Ratio 16.1, Glucose 47 L, Lactic Acid 9.8 H*, Calcium 8.4 L, Total Bilirubin 5.10 H, AST 3585 H, ALT 972 H, Alkaline Phosphatase 100, Total Creatine Kinase 522 H, Troponin I High Sens 93 H , Total Protein 6.9, Albumin 3.4, Globulin 3.5, Albumin/Globulin Ratio 1.0, Ethyl Alcohol 4.0 12/10/23 20:50: Ammonia 139.0 H, Urine Color Yellow, Urine Clarity Sl. Cloudy, Urine pH 5.0, Ur Specific [place] 1.025, Urine Protein 500 H, Urine Glucose (UA) Normal, Urine Ketones 5 H, Urine Occult Blood 150 H, Urine Nitrite Negative, Urine Bilirubin 1 H, Urine Urobilinogen 4 H, Ur Leukocyte Esterase 25 H, Urine RBC 10-25 SEEN, Urine WBC 0-5 SEEN, Ur Squamous Epith Cells 0 SEEN, Urine Bacteria 0 SEEN, Urine Mucus 0 SEEN, Urine Opiates Screen NEGATIVE, Urine Methadone Screen NEGATIVE, Ur Barbiturates Screen NEGATIVE, Ur Phencyclidine Scrn NEGATIVE, Ur Amphetamines Screen POSITIVE H, MDMA (Ecstasy) Screen POSITIVE H, U Benzodiazepines Scrn POSITIVE H, Urine Cocaine Screen NEGATIVE, U Cannabinoids Screen POSITIVE H, Ur Drug Screen Comment 12/11/23 01:00: Lactic Acid 5.9 H* Micro: Microbiology 12/10/23 20:50 Mucosa - Nose SARS-CoV-2, Influenza & RSV (PCR) - Final ABG Data ABG results: ABG 12/10/23 12/10/23 20:59 23:24 Specimen Type ART ART Sample Site R Radial R Radial pH 6.90 L* 7.11 L* Bicarbonate Actual 24.4 23.2 Total CO2 28 26 Base Excess -8 L -6 L O2 Saturation 89 L 96 O2 % 100.0 100.0 ABG pCO2 124.4 H* 73.3 H* ABG pO2 97 109 H Yong Test Positive Positive Respiration Rate 14 O2 Delivery Device NRB Adult Vent Vent Mode Not entered AC Tidal Volume 500.0 POC PEEP 8 Crit Call To/Read Back Yes Yes Blood Gas Notified Whom Le Blood Gas Notified Time 23:26:14 Imaging Radiology Impression Brain CT 12/10/23 20:42 IMPRESSION: No acute intracranial hemorrhage in this noncontrast head CT. Bilateral anterior maxillary dental root lucencies consistent with dental root abscess formation. Sinus disease. Electronically Signed: David Rondon MD at 21:58 EDT , Chest X-Ray 12/10/23 21:04 IMPRESSION: Diffuse interstitial process, suggesting pulmonary edema given venous congestion and cardiomegaly. Infectious etiology is not excluded. Numerous left lower lung lucencies, most consistent with blebs and bulla. Electronically Signed: David Rondon MD at 22:56 EDT , Chest X-Ray 12/10/23 21:37 IMPRESSION: Endotracheal tube tip is approximately 26 mm from the jorge. Again noted interstitial process, suggesting pulmonary edema given venous congestion and cardiomegaly. Infectious etiology is not excluded. Numerous left lower lung lucencies, most consistent with blebs and bulla. Electronically Signed: David Rondon MD at 22:58 EDT , Chest/Abdomen/Pelvis CT 12/10/23 22:58 IMPRESSION: Left greater than right patchy and nodular dense airspace disease, to include pneumonia. Diffuse emphysematous lung changes with few scattered large blebs of the lung bases. However, a few of these at the left lung base appear to be thick-walled, which may simply be secondary to associated airspace disease, although cavitary lesions are not excluded. Endotracheal tube tip is 33 mm from the jorge. Mild diffuse ascites. Bilateral adrenal adenomas. Electronically Signed: David Rondon MD at 1:12 EDT , Assessment and Plan . Assessment and plan: Critical Care Time: The entirety of this encounter was done via Telemedicine
[2023-12-11 05:11] LABS: Absolute Lymphocyte Count 1.09 X10^3/uL (0.83-4.51); Absolute Neutrophil Count 12.2 X10^3/uL (2.0-7.7); Basophil# 0.05 X10^3/uL; Basophil% 0.4 % (0-1); Hematocrit 50.4 % (40-54); Lymphocyte # 1.09 X10^3/ul (0.83-4.51); Lymphocyte % 7.7 % (19-41); Mean Corp Hgb Conc 29.8 g/dL (32-36); Mean Corpuscular Hgb 31.6 pg (27.0-32.0); Mean Corpuscular Volume 106.1 fL (80-94); Mean Platelet Vol. 11.2 fl (6.2-12.0); Monocyte# 0.73 X10^3/uL; Monocyte% 5.2 % (0-10); NRBC Flagged by Analyzer 0.6 % (0-5); Neutrophil # 12.16 X10^3/uL (2.7-7.7); Neutrophil % 86.3 % (47-70); POSITIVE MORPHOLOGY YES; Platelet Count 144 K/mm3 (150-450); RBC Distribution Width CV 14.8 % (11.6-14.6); RBC Distribution Width SD 58.4 fl (35.1-43.9); Red Blood Count 4.75 M/mm3 (4.6-6.2); White Blood Count 14.1 K/mm3 (4.4-11.0)
[2023-12-11 05:28] LABS: Prothrombin Time (Protime)PT. 46.9 SECONDS (11.7-14.9)
[2023-12-11 05:35] LABS: Base Excess 3 mmol/L (-2 to +2); Bicarbonate 28.9 mmol/L (22-26); Blood Gas Specimen Type ART; Mode AC; O2 Delivery Device Adult Vent; PEEP 8; PO2 37 mmHG (75-100); RR 14; SITE R Radial; SO2 63 % (95-99); Total Carbon Dioxide 31 mmol/L
[2023-12-11 05:36] LABS: International Normalized Ratio 5.1
[2023-12-11 05:45] LABS: Differential Indicated SCAN CRITERIA MET
[2023-12-11 05:47] LABS: Acetaminophen (Tylenol) Level < 2.0 ug/mL (10.0-30.0); Salicylate < 1.7 mg/dL (2.8-20.0)
[2023-12-11 05:52] LABS: Bedside Glucose 118 mg/dL (74-106)
[2023-12-11 05:52] LABS: Differential Comment SCANNED
[2023-12-11] MEDS: Piperacil/Tazobactam 3.375 GM in 0.9% Normal Saline (50mL MB+) 50 ML IV ×3 (05:52→21:14)
[2023-12-11] MEDS: Albumin Human 25% (100 mL) 25 GM/100 ML BAG IV (05:52)
[2023-12-11] MEDS: Hydrocortisone Sod Succinate 100 MG/2 ML Vial 50 MG IV ×4 (05:53→22:47)
[2023-12-11 05:54] LABS: ALB/GLOB Ratio 0.9 RATIO (0.9-2.4); AST(SGOT) 8562 U/L (15-37); Alanine Aminotransfer ALT/SGPT 2206 U/L (16-61); Albumin, Serum 2.7 g/dL (3.2-5.0); Alkaline Phosphatase 89 U/L (45-117); Anion Gap 9 (5-15); BUN 53 mg/dL (7-18); BUN/Creat Ratio 18.8 RATIO (10-20); Calcium,Total 7.1 mg/dL (8.5-10.1); Chloride 102 mmol/L (98-107); Creatinine, Serum 2.82 mg/dL (0.70-1.30); EST Glomerular Filtration Rate 25 mL/min (>60); Est Glom Filt Rate - Afr Amer 30 mL/min (>60); Estimated Creatinine Clearance 32.74 ml/min; Globulin 2.9 g/dL (2.2-4.2); Glucose 119 mg/dL (74-106); Potassium 5.1 mmol/L (3.5-5.1); Protein, Total 5.6 g/dL (6.4-8.2); Sodium Level 136 mmol/L (136-145)
[2023-12-11 06:07] LABS: HIV - WCH Non-Reactive (Nonreactive); Magnesium 1.9 mg/dL (1.6-2.6); Thyroid Stim Hormone (TSH) 0.84 uIU/mL (0.358-3.74)
[2023-12-11] MEDS: fentaNYL drip 100 ML 12.5 MCG CONT INF ×3 (06:27→22:51)
[2023-12-11] MEDS: 0.9% Saline Lock 10 ML Syringe IV ×3 (06:29→22:47)
[2023-12-11] MEDS: Ipratropium/Albuterol Sulfate 3 ML AMPUL.NEB INHALATION ×5 (06:44→23:11)
--- NOTE | 2023-12-11 07:06 | PCM.PN.HOSP ---
Reason for Visit Reason for Visit: Diagnoses Sepsis, unspecified organism (12/10/23) Other psychoactive substance abuse, uncomplicated (12/10/23) Severe sepsis with septic shock (12/10/23) Subjective Subjective Patient is a 58-year-old gentleman with history of polysubstance dependence who was found unresponsive. EMS was called patient was brought to the emergency department patient was intubated. He was reported to have aspirated during the intubation. He later became hypotensive and assessment of septic shock was made patient started on pressors admitted to the intensive care unit for further management Objective Data Objective Data Vital Signs: Vital Signs Temp Pulse Resp BP Pulse Ox O2 Del Method O2 Flow Rate 97.5 F L 101 H 14 88/63 L 95 Mechanical Ventilator 15 12/11/23 04:00 12/11/23 07:00 12/11/23 07:00 12/11/23 07:00 12/11/23 07:00 12/11/23 07:00 12/10/23 20:50 FiO2 80 12/11/23 07:00 Oxygen Flow Rate (L/min) 15 Oxygen Delivery Method Mechanical Ventilator Weight: 90.7 kg Body Mass Index (BMI) 28.7 Intake & Output: Intake and Output for Last 24 Hours 12/09/23 12/10/23 12/11/23 23:59 23:59 23:59 Intake Total 1037.58 / 1037.58 6031.21 / 6031.21 Output Total 1000 / 1000 Balance 1037.58 / 1037.58 5031.21 / 5031.21 Lab / Micro Data 12/11/23 04:55 12/11/23 04:55 Labs: Laboratory Results - last 24 hr 12/10/23 20:45: WBC 25.9 H, RBC 4.95, Hgb 15.7, Hct 54.0, MCV 109.1 H, MCH 31.7, MCHC 29.1 L, RDW Std Deviation 60.7 H, RDW Coeff of Elaine 15.0 H, Plt Count 216, MPV 10.4, Immature Gran % (Auto) 1.000 H, Neut % (Auto) 85.3 H, Lymph % (Auto) 4.0 L, Person % (Auto) 9.3, Eos % (Auto) 0.0, Baso % (Auto) 0.4, Absolute Neuts (auto) 22.1 H, Absolute Lymphs (auto) 1.03, Nucleated RBC % 0.2, Differential Comment SCANNED, Diff Path Review December, PT 47.8 H, INR 5.3 H*, APTT 35.6, Sodium 137, Potassium 5.3 H, Chloride 98, Carbon Dioxide 26.0, Anion Gap 13, BUN 48 H, Creatinine 2.98 H, Estim Creat Clear Calc 30.93, Est GFR (MDRD) Af Amer 28 L, Est GFR (MDRD) Non-Af 23 L, BUN/Creatinine Ratio 16.1, Glucose 47 L, Lactic Acid 9.8 H*, Calcium 8.4 L, Total Bilirubin 5.10 H, AST 3585 H, ALT 972 H, Alkaline Phosphatase 100, Total Creatine Kinase 522 H, Troponin I High Sens 93 H, Total Protein 6.9, Albumin 3.4, Globulin 3.5, Albumin/Globulin Ratio 1.0, Ethyl Alcohol 4.0 12/10/23 20:50: Ammonia 139.0 H, Urine Color Yellow, Urine Clarity Sl. Cloudy, Urine pH 5.0, Ur Specific [place] 1.025, Urine Protein 500 H, Urine Glucose (UA) Normal, Urine Ketones 5 H, Urine Occult Blood 150 H, Urine Nitrite Negative, Urine Bilirubin 1 H, Urine Urobilinogen 4 H, Ur Leukocyte Esterase 25 H, Urine RBC 10-25 SEEN, Urine WBC 0-5 SEEN, Ur Squamous Epith Cells 0 SEEN, Urine Bacteria 0 SEEN, Urine Mucus 0 SEEN, Urine Opiates Screen NEGATIVE, Urine Methadone Screen NEGATIVE, Ur Barbiturates Screen NEGATIVE, Ur Phencyclidine Scrn NEGATIVE, Ur Amphetamines Screen POSITIVE H, MDMA (Ecstasy) Screen POSITIVE H, U Benzodiazepines Scrn POSITIVE H, Urine Cocaine Screen NEGATIVE, U Cannabinoids Screen POSITIVE H, Ur Drug Screen Comment 12/11/23 01:00: Lactic Acid 5.9 H* 12/11/23 04:55: WBC 14.1 H, RBC 4.75, Hgb 15.0, Hct 50.4, MCV 106.1 H, MCH 31.6, MCHC 29.8 L, RDW Std Deviation 58.4 H, RDW Coeff of Elaine 14.8 H, Plt Count 144 L, MPV 11.2, Immature Gran % (Auto) 0.400, Neut % (Auto) 86.3 H, Lymph % (Auto) 7.7 L, Person % (Auto) 5.2, Eos % (Auto) 0.0, Baso % (Auto) 0.4, Absolute Neuts (auto) 12.2 H, Absolute Lymphs (auto) 1.09, Nucleated RBC % 0.6, Differential Comment SCANNED, PT 46.9 H, INR 5.1 H*, Sodium 136, Potassium 5.1, Chloride 102, Carbon Dioxide 25.0, Anion Gap 9, BUN 53 H, Creatinine 2.82 H, Estim Creat Clear Calc 32.74, Est GFR (MDRD) Af Amer 30 L, Est GFR (MDRD) Non-Af 25 L, BUN/Creatinine Ratio 18.8, Glucose 119 H, Calcium 7.1 L, Magnesium 1.9, Total Bilirubin 5.00 H, AST 8562 H, ALT 2206 H, Alkaline Phosphatase 89, Total Protein 5.6 L, Albumin 2.7 L, Globulin 2.9, Albumin/Globulin Ratio 0.9, TSH 0.84, Salicylates < 1.7 L, Acetaminophen < 2.0 L, HIV 1&2 Antibody Non-Reactive 12/11/23 05:31: POC Glucose 118 H Micro: Microbiology 12/10/23 20:50 Mucosa - Nose SARS-CoV-2, Influenza & RSV (PCR) - Final ABG Data ABG results: ABG 12/10/23 12/10/23 12/11/23 20:59 23:24 05:30 Specimen Type ART ART ART Sample Site R Radial R Radial R Radial pH 6.90 L* 7.11 L* 7.30 L Bicarbonate Actual 24.4 23.2 28.9 H Total CO2 28 26 31 Base Excess -8 L -6 L 3 H O2 Saturation 89 L 96 63 L O2 % 100.0 100.0 80.0 ABG pCO2 124.4 H* 73.3 H* 59.0 H ABG pO2 97 109 H 37 L* Yong Test Positive Positive N/A Respiration Rate 14 14 O2 Delivery Device NRB Adult Vent Adult Vent Vent Mode Not entered AC AC Tidal Volume 500.0 500.0 POC PEEP 8 8 Crit Call To/Read Back Yes Yes Yes Blood Gas Notified Whom Reema [place] Blood Gas Notified Time 23:26:14 05:32:24 Radiography Diagnostic Testing: Radiology Impression Brain CT 04/16/24 20:42 IMPRESSION: No acute intracranial hemorrhage in this noncontrast head CT. Bilateral anterior maxillary dental root lucencies consistent with dental root abscess formation. Sinus disease. Electronically Signed: David Rondon MD at 21:58 EDT , Chest X-Ray 12/10/23 21:04 IMPRESSION: Diffuse interstitial process, suggesting pulmonary edema given venous congestion and cardiomegaly. Infectious etiology is not excluded. Numerous left lower lung lucencies, most consistent with blebs and bulla. Electronically Signed: David Rondon MD at 22:56 EDT , Chest X-Ray 12/10/23 21:37 IMPRESSION: Endotracheal tube tip is approximately 26 mm from the jorge. Again noted interstitial process, suggesting pulmonary edema given venous congestion and cardiomegaly. Infectious etiology is not excluded. Numerous left lower lung lucencies, most consistent with blebs and bulla. Electronically Signed: David Rondon MD at 22:58 EDT , Chest/Abdomen/Pelvis CT 12/10/23 22:58 IMPRESSION: Left greater than right patchy and nodular dense airspace disease, to include pneumonia. Diffuse emphysematous lung changes with few scattered large blebs of the lung bases. However, a few of these at the left lung base appear to be thick-walled, which may simply be secondary to associated airspace disease, although cavitary lesions are not excluded. Endotracheal tube tip is 33 mm from the jorge. Mild diffuse ascites. Bilateral adrenal adenomas. Electronically Signed: David Rondon MD at 1:12 EDT , Physical Exam Narrative GENERAL: Sedated on the vent HEENT: Atraumatic; normocephalic EYES; Anicteric, Normal Conjunctiva NECK; supple, normal thyroid, RESPIRATORY: Diminished to auscultation CARDIOVASCULAR: Regular S1 S2, GI: soft, normoactive bowel sounds, : No Renal angle tenderness; EXTREMITIES: Cyanosis of extremities, MUSCULOSKELETAL: no muscle wasting NEURO: Sedated on the vent SKIN: plantar warts on the left heel Assessment & Plan Assessment/Plan (1) Septic shock: PLAN: Plan Patient is a 58-year-old gentleman with history of polysubstance dependence who was found unresponsive. EMS was called patient was brought to the emergency department patient was intubated. He was reported to have aspirated during the intubation. He later became hypotensive and assessment of septic shock was made patient started on pressors admitted to the intensive care unit for further management 1. Septic shock ? Secondary to suspected aspiration pneumonia. Patient admitted to the intensive care unit resuscitated with IV fluid per protocol also started on broad-spectrum antibiotic therapy response to therapy being monitored with serial lactic acid levels 2. Acute hypoxic and hypercapnic respiratory failure -patient was intubated in the emergency department. Admitted to the intensive care unit subsequent vent management deferred to critical care 3. COPD exacerbation ? Complicating care management as discussed above in addition to systemic steroids 4. Acute renal failure ? Patient baseline creatinine documented from 09/05/2020 was 0.59 creatinine admission was 2.98 patient is on fluids with monitoring of electrolyte 5. Acute hepatic failure ? Patient found to have markedly transaminases (pattern consistent with alcohol use) and INR did receive vitamin K. Consult was placed to GI there was a recommendation to start N-acetylcysteine will defer to patient is evaluated by gastroenterology next 6. Hypokalemia ? Potassium on admission was 5.3 down to 5.1 7. Hypoglycemia ? Attributed to patient liver failure 8. Polysubstance abuse ? Patient urine drug screen was positive for cannabis benzos MDMA and meth 9. DVT prophylaxis ? Has elevated INR no further treatment warranted Critical Time spent in the patient's overall evaluation,decision-making process, review of diagnostic data, adjustment of management, discussion with other providers, nursing nursing and ancillary staff involved in patient's care documentation, 75 Minutes Charges/Coding Multi Select Codes Hospitalists' Procedures Procedures: 37867 Critical Care 1st Hr [place] [id number] Critical Care Addl 30 Min
--- NOTE | 2023-12-11 09:08 | PRO.PCM_ITS ---
Procedure Report Date of Procedure: 12/11/23 Assessment & Plan Assessment/Plan (1) Septic shock: Procedures Radiology Radiology Access Procedures: PICC Procedure Time Out Time Out Informed consent given: Yes Consent signed: Yes Time out checklist: patient, procedure, site marked/identified, positioning of patient, supplies available and allergies confirmed Time out verified: Yes Time out date: 12/11/23 Time out time: 08:10 PICC Line Consent Screening tool completed:: Yes Consent obtained:: Yes Consent given by (patient or responsible green party):: family Line successful (if no, document why in comments):: Yes Insertion Reason for Insertion: vesicant Date of Insertion: 12/11/23 Ok to use: Yes Type of PICC inserted: Dual Power PICC PICC Lot #: [id number] PICC Reference #: [id number] Microintroducer Used: Yes (in kit) Ultrasound/Equipment Used: Probe Cover Kit Trimmed Length (cm): 48 Insertion Length (cm): 47 Exposed Length (cm): 1 Tip Placement: Caval Atrial Junction Placement Confirmation: 3CG Insertion Vein: Right Basilic Insertion Attempts: 1 Local Anesthesia Used: Lidocaine 1% (in kit) Dressing Applied: Statlock and Tegaderm CHG Arm Measurement above site (in cm): 30 Patient Tolerated Procedure: Well Threading Difficulties: No Comments Comment: Patient identity was verified with two patient identifiers. Informed consent was obtained and time-out was completed. Hands were sanitized. The patient was positioned supine with right arm at 90 degrees. The patient's upper arm vasculature was assessed using ultrasound. Patency of the right basilic vein was confirmed and the vein was externally marked. An external measurement was obtained of 48 cm. External leads were applied to the patient's right upper chest and laterally and inferior of the umbilicus on the mid axillary line. Cap, mask, and prep gloves were donned. The underdrape was placed under the patient's arm. The site was prepped with chlorhexidine, and tourniquet was loo sely applied. Prep gloves were discarded, and hands were sanitized. The sterile kit was opened with additional supplies dropped in. Sterile gown and gloves were donned, and the patient was draped. The sterile kit was assembled with needle, introducer, needless connectors, and each catheter lumen flushed with sterile normal saline. The marked site of insertion was anesthetized with 1% lidocaine from the kit. Patient tolerated well. The right basilic vein was then accessed using ultrasound guidance and guidewire was inserted to safety josie. The tourniquet was released. The access needle was removed while securing the guidewire in place. The site was again anesthetized with 1% lidocaine, prior to insertion of introducer sheath and dilator. Patient tolerated the insertion well. The catheter was trimmed to a length of 48 cm. Using 3C guidance, the catheter was then inserted through the introducer sheath, slowly. There was no resistance on insertion. The catheter followed the expected course of the vessel using 3CG tracking. The introducer sheath was retracted and peeled away, incrementally, while keeping the catheter secured. Maximal p-wave, without deflection, confirming placement in the cavoatrial junction, was obtained at an insertion length of 47 cm, leaving 1 cm external. The stylet was removed. A flushed needleless connector was attached to the lumen. Aspiration of the lumen was performed to remove any air and confirm blood return. Blood return was verified and each lumen was flushed with 10 ml of sterile normal saline in a pulsatile fashion. The each lumen was clamped with the last pulsed flush. Total sterile flushes used for the insertion was 7 10 ml syringes, 2 from the kit. Finally, the insertion site was cleaned with chlorhexidine, and the catheter was secured using a StatLock. The site was covered with a Tegaderm CHG Dressing and disinfecting caps were applied. Baseline arm circumference was obtained at the insertion site and measured 30 cm. The patient was provided with a patient education handout on PICC line care of infection prevention, heavy lifting restriction, maintaining mobility, and watching for any signs of infection. The primary nurse is aware that the PICC line is ready for use.
[2023-12-11] MEDS: Famotidine 200 MG/20 ML MDV 20 MG in 0.9% Normal Saline (Pres. free 8 ML 300 MG IV (09:25)
[2023-12-11] MEDS: Chlorhexidine 15 ML PO ×2 (09:26→21:14)
--- NOTE | 2023-12-11 10:10 | CASEMGMT ---
RN?CM?ASSESSMENT Pt is currently intubated. CHETAN AMARO placed call to pt's sister, Asia, and the following information obtained from her. She was only able to answer some of the questions. CM/SW to follow-up w/pt once he is extubated to obtain further information and to discuss discharge plan/needs. PCP: unsure Specialists: unsure Insurance: unsure Prescription Benefit:?unsure Living Will/HPOA:?Asia states pt has not completed these, as far as she is aware. LNOK: Inquired if pt has any children, Asia states, None we are sure about. He has 4 siblings (3 sisters and a brother). 2 of the sisters are Asia and Radha. Living Arrangements: Pt lives in mobile home w/4 steps to enter. He is independent w/ADL's & IADL's. He does have a friend that stays w/him often. He and all of his siblings live on the same neto/property/acreage that their parents purchased. DME: Pt does not use any DME. She states he does use inhaler for his COPD/asthma. HHC/SNF: No hx of either. Substance/ETOH use: Asia states pt used to democrat and drink and that they didn't think he was drinking anymore and this has surprised them. She states that their other brother did share, when the squad was there, that he was aware pt had used meth the past few days. PLAN:??TBD. Pt currently intubated. SRI/PREM to follow. Abelardo BRICENON?RN?PREM
[2023-12-11 10:37] LABS: Pathologist Review Reviewed
[2023-12-11 12:50] LABS: Bedside Glucose 172 mg/dL (74-106)
[2023-12-11 20:06] LABS: ALB/GLOB Ratio 1.2 RATIO (0.9-2.4); AST(SGOT) 6683 U/L (15-37); Alanine Aminotransfer ALT/SGPT 2315 U/L (16-61); Albumin, Serum 3.1 g/dL (3.2-5.0); Alkaline Phosphatase 78 U/L (45-117); Anion Gap 7 (5-15); BUN 61 mg/dL (7-18); Calcium,Total 6.2 mg/dL (8.5-10.1); Chloride 98 mmol/L (98-107); Creatinine, Serum 3.59 mg/dL (0.70-1.30); EST Glomerular Filtration Rate 19 mL/min (>60); Est Glom Filt Rate - Afr Amer 23 mL/min (>60); Estimated Creatinine Clearance 25.71 ml/min; Globulin 2.5 g/dL (2.2-4.2); Glucose 209 mg/dL (74-106); Potassium 5.1 mmol/L (3.5-5.1); Protein, Total 5.6 g/dL (6.4-8.2); Sodium Level 132 mmol/L (136-145)
[2023-12-11 20:19] LABS: CPK Total, Creatine Kinase 1754 U/L (39-308); Triglycerides 68 mg/dL
[2023-12-11 22:02] LABS: Bedside Glucose 213 mg/dL (74-106)
[2023-12-11] MEDS: Calcium Gluconate IV 2 GM in 0.9% Normal Saline (100mL Bag) 100 ML IV (22:44)
[2023-12-11] MEDS: Vancomycin HCl 1,250 MG in 0.9% Normal Saline (250mL Bag) 250 ML 167 MG IV (22:44)
[2023-12-11] MEDS: Insulin Lispro 100 UNIT/ML INSULN.PEN SC (22:51)
--- NOTE | 2023-12-11 22:53 | EX.PCM.CON.G ---
HPI Consult Data Date of Consult: 12/11/23 HPI Narrative Reason for Consultation: Ischemic hepatitis HPI Narrative: RONNIE KATZ, is a 58 M who presented to the hospital for being found unresponsive by family. En route to the hospital he had to be bagged by EMS, at that time his blood sugar was 84 and he was given a 1 mg dose of Narcan without any response. Unfortunately unable to obtain any more history as he is currently intubated and family is no longer at bedside. History was obtained by chart review. Apparently he was texting with his mother earlier this afternoon and everything seemed to be normal so is unclear as to what caused him to become unresponsive. He did test positive for several drugs including benzodiazepines, marijuana, ecstasy though alcohol was normal. Family states that he used to have drug use issues but they were not aware that he was still using. There is a likelihood of aspiration pneumonia as during the process of intubation extensive suctioning was necessary to be able to visualize the vocal cords. Lab work does indicate septic etiology as his white count is 25.9 and his lactic acid is 9.8. He also shows extensive liver injury with an INR of 5.3 while not being on Coumadin and elevated LFTs. Initial ABG with a pH of 6.9 and CO2 of 124. He was also found to be in renal failure with a creatinine of 2.98. At the time of my evaluation he was in the middle of receiving his sepsis bolus fluids, his mean arterial pressures are greater than 65. [facility] Medical History (Updated 12/11/23 @ 00:[address] Darrell Ponce MD) COPD (chronic obstructive pulmonary disease) Medical History unable to obtain Home Medications aripiprazole 5 mg tablet 5 mg PO DAILY mental health 09/04/20 [History Last Taken 09/03/20 09:00] sertraline 100 mg tablet 200 mg PO DAILY depression 09/04/20 [History Last Taken 09/03/20 09:00] Allergy/AdvReac Type Severity Reaction Status Date / Time No Known Allergies Allergy Verified 12/10/23 21:31 Family History unable to obtain Surgical History unable to obtain Social History Smoking Status: Unknown if ever smoked ROS Review of Systems ROS Unobtainable: due to endotracheal tube Physical Exam Narrative GENERAL: Sedated on the vent HEENT: Atraumatic; normocephalic EYES; Anicteric, Normal Conjunctiva NECK; supple, normal thyroid, RESPIRATORY: Diminished to auscultation CARDIOVASCULAR: Regular S1 S2, GI: soft, normoactive bowel sounds, : No Renal angle tenderness; EXTREMITIES: Cyanosis of extremities, MUSCULOSKELETAL: no muscle wasting NEURO: Sedated on the vent SKIN: plantar warts on the left heel Lab / Micro Data 12/11/23 04:55 12/11/23 19:15 Labs: Laboratory Results - last 24 hr 12/10/23 20:45: Diff Path Review Reviewed 12/11/23 01:00: Lactic Acid 5.9 H* 12/11/23 04:55: WBC 14.1 H, RBC 4.75, Hgb 15.0, Hct 50.4, MCV 106.1 H, MCH 31.6, MCHC 29.8 L, RDW Std Deviation 58.4 H, RDW Coeff of Elaine 14.8 H, Plt Count 144 L, MPV 11.2, Immature Gran % (Auto) 0.400, Neut % (Auto) 86.3 H, Lymph % (Auto) 7.7 L, [place] % (Auto) 5.2, Eos % (Auto) 0.0, Baso % (Auto) 0.4, Absolute Neuts (auto) 12.2 H, Absolute Lymphs (auto) 1.09, Nucleated RBC % 0.6, Differential Comment SCANNED, PT 46.9 H, INR 5.1 H*, Sodium 136, Potassium 5.1, Chloride 102, Carbon Dioxide 25.0, Anion Gap 9, BUN 53 H, Creatinine 2.82 H, Estim Creat Clear Calc 32.74, Est GFR (MDRD) Af Amer 30 L, Est GFR (MDRD) Non-Af 25 L, BUN/Creatinine Ratio 18.8, Glucose 119 H, Calcium 7.1 L, Magnesium 1.9, Total Bilirubin 5.00 H, AST 8562 H, ALT 2206 H, Alkaline Phosphatase 89, Total Protein 5.6 L, Albumin 2.7 L, Globulin 2.9, Albumin/Globulin Ratio 0.9, TSH 0.84, Salicylates < 1.7 L, Acetaminophen < 2.0 L, HIV 1&2 Antibody Non-Reactive 12/11/23 05:31: POC Glucose 118 H 12/11/23 12:26: POC Glucose 172 H 12/11/23 19:15: Sodium 132 L, Potassium 5.1, Chloride 98, Carbon Dioxide 27.0, Anion Gap 7, BUN 61 H, Creatinine 3.59 H, Estim Creat Clear Calc 25.71, Est GFR (MDRD) Af Amer 23 L, Est GFR (MDRD) Non-Af 19 L, BUN/Creatinine Ratio 17.0, Glucose 209 H, Calcium 6.2 L*, Total Bilirubin 4.80 H, AST 6683 H, ALT 2315 H, Alkaline Phosphatase 78, Total Creatine Kinase 1754 H, Total Protein 5.6 L, Albumin 3.1 L, Globulin 2.5, Albumin/Globulin Ratio 1.2, Triglycerides 68 12/11/23 21:45: POC Glucose 213 H Micro: Microbiology 12/10/23 Unknown Sputum, Induced/Lukens Gram Stain - Final 12/10/23 20:50 Mucosa - Nose SARS-CoV-2, Influenza & RSV (PCR) - Final ABG Data ABG results: ABG 12/10/23 12/11/23 23:24 05:30 Specimen Type ART ART Sample Site R Radial R Radial pH 7.11 L* 7.30 L Bicarbonate Actual 23.2 28.9 H Total CO2 26 31 Base Excess -6 L 3 H O2 Saturation 96 63 L O2 % 100.0 80.0 ABG pCO2 73.3 H* 59.0 H ABG pO2 109 H 37 L* Yong Test Positive N/A Respiration Rate 14 14 O2 Delivery Device Adult Vent Adult Vent Vent Mode AC AC Tidal Volume 500.0 500.0 POC PEEP 8 8 Crit Call To/Read Back Yes Yes Blood Gas Notified Whom Reema Matute Blood Gas Notified Time 23:26:14 05:32:24 Imaging Radiology Impression Chest X-Ray 12/10/23 21:04 IMPRESSION: Diffuse interstitial process, suggesting pulmonary edema given venous congestion and cardiomegaly. Infectious etiology is not excluded. Numerous left lower lung lucencies, most consistent with blebs and bulla. Electronically Signed: David Rondon MD at 22:56 EDT , Chest X-Ray 12/10/23 21:37 IMPRESSION: Endotracheal tube tip is approximately 26 mm from the jorge. Again noted interstitial process, suggesting pulmonary edema given venous congestion and cardiomegaly. Infectious etiology is not excluded. Numerous left lower lung lucencies, most consistent with blebs and bulla. Electronically Signed: David Rondon MD at 22:58 EDT , Chest/Abdomen/Pelvis CT 12/10/23 22:58 IMPRESSION: Left greater than right patchy and nodular dense airspace disease, to include pneumonia. Diffuse emphysematous lung changes with few scattered large blebs of the lung bases. However, a few of these at the left lung base appear to be thick-walled, which may simply be secondary to associated airspace disease, although cavitary lesions are not excluded. Endotracheal tube tip is 33 mm from the jorge. Mild diffuse ascites. Bilateral adrenal adenomas. Electronically Signed: David Rondon MD at 1:12 EDT , Abdomen Ultrasound 12/11/23 04:52 IMPRESSION: 1. Mild to moderate ascites. 2. Otherwise essentially unremarkable examination. Electronically Signed: Vickey Schofield MD at 12:30 EDT , Echocardiogram 12/11/23 04:52 Interpretation Summary Normal LV size. The estimated ejection fraction is 45 %. D shaped septum in systole and diastole. Pulmonary artery systolic pressure is 30 mmHg. Pulmonary pressures are likely an underestimate due to the right ventricular systolic dysfunction. Ordering Physician: Rinku Porras Performed By: Rhoda Sanchez RDCS Assessment & Plan Assessment/Plan (1) Polysubstance abuse: (2) Septic shock: PLAN: Plan [id number] with history of poly substance abuse, discovered to be not responsiv. He likely has Septic shock secondary to aspiration pneumonia complicated by drug use with acute hypoxic and hypercapnic respiratory failure/shock liver/acute renal failure -On on the different diagnosis for AST and ALT into the thousands are Tylenol toxicity, viral, hepatitis, ischemic, hepatitis, less likely Maged disease. Those are typically the only liver enzyme pattern with the ALT ratio greater than one and both enzymes greater than 1000. -Acute hepatitis panels pending -I would recommend to start analytical research chemist for ischemic hepatitis. -I would not give him steroids at this time although autoimmune hepatitis is on the differential diagnosis. It is lower lower due to his history of drug abuse, and being found down. -If his INR bill do not improve with administration of vitamin K, and in social Sistine, he has a very poor prognosis. - Ischemic hepatitis (IH) leads to dramatic rises in AST/ALT that can be difficult to diagnose in critically-ill pts. Jaundice is an uncommon manifestation of IH alone, but is commonly seen as part of sepsis. - Overall mortality was 44%, driven in large part by sepsis leading to multiorgan failure, and accounting for higher TB levels compared to those without sepsis. Higher TB and LDH levels were among the factors independently associated with increased mortality, often reflecting sepsis. Charges/Coding Visit Charges Inpatient E&M: 71423 Init Hosp L3
[2023-12-11 23:11] LABS: Bedside Glucose 204 mg/dL (74-106)
[2023-12-12] VITALS (43 sets, daily range): BP systolic 84–106; BP diastolic 61–78; PULSE 93–113; RESP 14–18; TEMP 36.4–40.1; O2SAT 89–95; BMI 28.4
[2023-12-12] MEDS: Ipratropium/Albuterol Sulfate 3 ML AMPUL.NEB INHALATION ×6 (02:23→23:19)
[2023-12-12 03:22] LABS: Hematocrit 45.3 % (40-54); Hemoglobin 13.7 g/dL (13.0-16.5); Mean Corp Hgb Conc 30.2 g/dL (32-36); Mean Corpuscular Hgb 31.1 pg (27.0-32.0); Mean Platelet Vol. 11.8 fl (6.2-12.0); POSITIVE COUNT YES; Platelet Count 91 K/mm3 (150-450); RBC Distribution Width SD 56.5 fl (35.1-43.9); White Blood Count 15.1 K/mm3 (4.4-11.0)
[2023-12-12 03:26] LABS: Scan Indicated on CBC? Y/N YES- FLAGS NOTED
[2023-12-12 03:32] LABS: Prothrombin Time (Protime)PT. 44.2 SECONDS (11.7-14.9)
[2023-12-12 03:53] LABS: International Normalized Ratio 4.8
[2023-12-12 03:59] LABS: AST(SGOT) 4756 U/L (15-37); Alanine Aminotransfer ALT/SGPT 2213 U/L (16-61); Albumin, Serum 2.9 g/dL (3.2-5.0); Alkaline Phosphatase 77 U/L (45-117); Anion Gap 8 (5-15); BUN 69 mg/dL (7-18); Bilirubin, Direct 3.22 mg/dL (0.00-0.30); Calcium,Total 6.6 mg/dL (8.5-10.1); Chloride 95 mmol/L (98-107); Creatinine, Serum 4.07 mg/dL (0.70-1.30); EST Glomerular Filtration Rate 16 mL/min (>60); Est Glom Filt Rate - Afr Amer 20 mL/min (>60); Globulin 2.7 g/dL (2.2-4.2); Glucose 216 mg/dL (74-106); Phosphorus 5.4 mg/dL (2.5-4.9); Protein, Total 5.6 g/dL (6.4-8.2); Sodium Level 130 mmol/L (136-145)
[2023-12-12] MEDS: 0.9% Saline Lock 10 ML Syringe IV ×2 (04:30→21:49)
[2023-12-12 04:40] LABS: Ionized Calcium 3.89 mg/dL (4.36-5.20)
[2023-12-12] MEDS: Sodium Bicarbonate 50 MEQ in Dextrose 5%-Water (1000mL Bag) 1,000 ML 150 MEQ IV (05:00)
[2023-12-12] MEDS: CHLORHEXIDINE GLUC 2% CLOTH 1 EACH TOWELETTE TOPICAL (05:03)
[2023-12-12] MEDS: Hydrocortisone Sod Succinate 100 MG/2 ML Vial 50 MG IV ×3 (05:03→17:35)
[2023-12-12] MEDS: Piperacil/Tazobactam 3.375 GM in 0.9% Normal Saline (50mL MB+) 50 ML IV ×3 (05:03→22:12)
[2023-12-12] MEDS: Insulin Lispro 100 UNIT/ML INSULN.PEN SC ×3 (05:09→17:35)
[2023-12-12 05:35] LABS: Bedside Glucose 232 mg/dL (74-106)
--- NOTE | 2023-12-12 06:24 | PN.CC_ITS ---
Assessment & Plan Assessment/Plan (1) Septic shock: (2) Aspiration into airway: PLAN: Plan RECOMMENDATIONS: 1. Continue assist-control mode mechanical ventilation. Wean FiO2 and PEEP to maintain saturations at or above 90%. 2. Resume vasopressor support, if needed, to maintain hemodynamic stability. Continue stress dose steroids. 3. Continue bicarbonate infusion, pending further evaluation by nephrology. 4. Vitamin K as ordered. 5. Continue empiric antimicrobials. 6. Continue scheduled bronchodilator therapy. 7. Continue appropriate GI prophylaxis. IMPRESSIONS: 1. Acute combined respiratory failure The patient initially presented to the hospital after being found down unresponsive by family members. He does have reported history of COPD along with a positive toxicology screen at presentation. The patient was notably hypercapnic and was intubated as a consequence of this. The patient's acid-base status has improved with invasive mechanical ventilatory support. He does have evidence of multifocal airspace disease on chest imaging, raising the concern for aspiration pneumonia. As such, he will be continued on empiric antimicrobials along with bronchodilator therapy. Assist-control mode of mechanical ventilation will be continued, with a goal to wean FiO2 and PEEP to maintain saturations at or above 90%. 2. Septic shock Most likely secondary to presenting aspiration pneumonia. Cultures are currently pending. Continue vasopressor support, if needed, to maintain a mean arterial pressure at or above 65 mmHg. Stress dose steroids will be continued for now. 3. Multisystem organ failure with coagulopathy Clinical concern for ischemic etiologies for acute liver and kidney failure. Nephrology and gastroenterology are following to assist with medical management. Vitamin K will be administered as ordered. Hepatitis panel is pending. Plan to continue sodium bicarb and infusion for now, pending further evaluation by nephrology. 4. Toxic/metabolic encephalopathy Continue supportive measures as noted above. Hypercapnia has improved with invasive mechanical ventilatory support. The patient is more alert and interactive. No acute intracranial pathology was noted on CT imaging of the head. 5. History of polysubstance dependency Complicates care, management, recovery and prognosis. Continue supportive measures as outlined above. TIME: 34 minutes of critical care time, independent of procedures, was spent addressing the patient's acute combined respiratory failure, septic shock, multisystem organ failure with coagulopathy, toxic/metabolic encephalopathy, review of all data and collaboration with the care team. Subjective Subjective The patient was seen and examined at the bedside this morning. Events from the last 24 hours have been reviewed. The patient is currently afebrile, hemodynamically stable and maintaining appropriate oxygen saturations on assist-control mode mechanical ventilation with an FiO2 requirement of 75% and PEEP of 8. Nursing staff reported that they were able to wean the patient's Levophed off completely approximately 1 hour ago. He remains sedated on fentanyl. The patient is currently documented to be overall net +10.3 L for the hospitalization. White count is elevated at 15,000. Platelet count is low at 91,000. INR remains elevated at 4.8. Sodium is low at 130 with a chloride of 95 and creatinine of 4.07. Total bili remains elevated at 4.9 with an AST of 4756 and ALT of 2213. Objective Data Objective Data The patient's most recent lab work, culture data and imaging studies have all been personally reviewed. CT chest/abdomen/pelvis demonstrated patchy bilateral airspace disease with diffuse emphysematous changes. Abdominal ultrasound demonstrated mild to moderate ascites without any significant pathology. Blood, urine and sputum cultures are pending. Surface echocardiogram demonstrated an ejection fraction of 45% with a moderately dilated RV, moderate global RV systolic dysfunction and pulmonary artery systolic pressure of 30 mmHg. Vital Signs: Vital Signs Temp Pulse Resp BP Pulse Ox O2 Del Method O2 Flow Rate 98.6 F 102 H 14 86/64 L 91 Mechanical Ventilator 15 12/12/23 00:00 12/12/23 06:00 12/12/23 06:00 12/12/23 06:00 12/12/23 06:00 12/12/23 06:00 12/10/23 20:50 FiO2 75 12/12/23 06:00 Oxygen Flow Rate (L/min) 15 Oxygen Delivery Method Mechanical Ventilator Weight: 198 lb 6.656 oz Body Mass Index (BMI) 28.4 Intake & Output: Intake and Output for Last 24 Hours 12/10/23 12/11/23 12/12/23 23:59 23:59 23:59 Intake Total 1037.58 / 1037.58 8941.90 / 8963.80 1687.31 / 1687.31 Output Total 1215 / 1215 100 / 100 Balance 1037.58 / 1037.58 7726.90 / 7748.80 1587.31 / 1587.31 Lab / Micro Data Attestation: I reviewed the patient's lab results. 12/12/23 03:07 12/12/23 03:07 Labs: Laboratory Results - last 24 hr 12/10/23 20:45: Diff Path Review Reviewed 12/11/23 12:26: POC Glucose 172 H 12/11/23 19:15: Sodium 132 L, Potassium 5.1, Chloride 98, Carbon Dioxide 27.0, Anion Gap 7, BUN 61 H, Creatinine 3.59 H, Estim Creat Clear Calc 25.71, Est GFR (MDRD) Af Amer 23 L, Est GFR (MDRD) Non-Af 19 L, BUN/Creatinine Ratio 17.0, Glucose 209 H, Calcium 6.2 L*, Total Bilirubin 4.80 H, AST 6683 H, ALT 2315 H, Alkaline Phosphatase 78, Total Creatine Kinase 1754 H, Total Protein 5.6 L, A lbumin 3.1 L, Globulin 2.5, Albumin/Globulin Ratio 1.2, Triglycerides 68 12/11/23 21:45: POC Glucose 213 H 12/11/23 22:51: POC Glucose 204 H 12/12/23 03:07: WBC 15.1 H, RBC 4.40 L, Hgb 13.7, Hct 45.3, MCV 103.0 H, MCH 31.1, MCHC 30.2 L, RDW Std Deviation 56.5 H, RDW Coeff of Elaine 15.0 H, Plt Count 91 L, MPV 11.8, PT 44.2 H, INR 4.8 H*, Sodium 130 L, Potassium 5.0, Chloride 95 L, Carbon Dioxide 27.0, Anion Gap 8, BUN 69 H, Creatinine 4.07 H, Estim Creat Clear Calc 22.60, Est GFR (MDRD) Af Amer 20 L, Est GFR (MDRD) Non-Af 16 L, BUN/Creatinine Ratio 17.0, Glucose 216 H, Calcium 6.6 L, Phosphorus 5.4 H, Magnesium 2.0, Total Bilirubin 4.90 H, Direct Bilirubin 3.22 H, AST 4756 H, ALT 2213 H, Alkaline Phosphatase 77, Total Protein 5.6 L, Albumin 2.9 L, Globulin 2.7 12/12/23 04:35: Ionized Calcium 3.89 L 12/12/23 05:08: POC Glucose 232 H Micro: Microbiology 12/10/23 Unknown Sputum, Induced/Lukens Gram Stain - Final 12/10/23 20:50 Mucosa - Nose SARS-CoV-2, Influenza & RSV (PCR) - Final Radiography Diagnostic Testing: Radiology Impression Abdomen Ultrasound 12/11/23 04:52 IMPRESSION: 1. Mild to moderate ascites. 2. Otherwise essentially unremarkable examination. Electronically Signed: Vickey Schofield MD at 12:30 EDT , Echocardiogram 12/11/23 04:52 Interpretation Summary Normal LV size. The estimated ejection fraction is 45 %. D shaped septum in systole and diastole. Pulmonary artery systolic pressure is 30 mmHg. Pulmonary pressures are likely an underestimate due to the right ventricular systolic dysfunction. Ordering Physician: Rinku Porras Performed By: Rhoda Sanchez RDCS Physical Exam Const Constitutional Narrative: Intubated, sedated and mechanically ventilated. No ventilator dyssynchrony noted. HEENT normocephalic and head/scalp atraumatic Mouth: endotracheal tube in place and OG tube in place Eyes PERRL Neck supple General: trachea midline Chest inspection of chest normal Resp normal respiratory effort Auscultation: diminished lung sounds; Negative for rales, rhonchi or wheezes Cardio regular rate and regular rhythm GI normal to inspection, nondistended, normoactive bowel sounds Extremity no clubbing, cyanosis or edema Skin no rashes or lesions noted Neuro Sensorium / Orientation: sedated on vent Charges/Coding Procedures Hospitalists Procedures: 31136 Critical Care 1st Hr
[2023-12-12 06:35] LABS: Differential Comment SCANNED
[2023-12-12] MEDS: fentaNYL drip 100 ML 12.5 MCG CONT INF ×2 (06:48→16:00)
--- NOTE | 2023-12-12 07:09 | PN.HOSP_ITS ---
Reason for Visit Reason for Visit: Diagnoses Sepsis, unspecified organism (12/10/23) Other psychoactive substance abuse, uncomplicated (12/10/23) Severe sepsis with septic shock (12/10/23) Subjective Subjective Patient seen remains on the vent. Per nursing staff patient is able to follow simple commands when sedation distended. Creatinine continues to worsen consult was placed to nephrology. INR remains elevated. Objective Data Objective Data Vital Signs: Vital Signs Temp Pulse Resp BP Pulse Ox O2 Del Method O2 Flow Rate 98.6 F 101 H 14 89/61 L 91 Mechanical Ventilator 15 12/12/23 00:00 12/12/23 07:00 12/12/23 07:00 12/12/23 07:00 12/12/23 07:00 12/12/23 07:00 12/10/23 20:50 FiO2 75 12/12/23 07:00 Oxygen Flow Rate (L/min) 15 Oxygen Delivery Method Mechanical Ventilator Weight: 90 kg Body Mass Index (BMI) 28.4 Intake & Output: Intake and Output for Last 24 Hours 12/10/23 12/11/23 12/12/23 23:59 23:59 23:59 Intake Total 1037.58 / 1037.58 8941.90 / 8963.80 1699.81 / 1699.81 Output Total 1215 / 1215 100 / 100 Balance 1037.58 / 1037.58 7726.90 / 7748.80 1599.81 / 1599.81 Lab / Micro Data 12/12/23 03:07 12/12/23 03:07 Labs: Laboratory Results - last 24 hr 12/10/23 20:45: Diff Path Review Reviewed 12/11/23 12:26: POC Glucose 172 H 12/11/23 19:15: Sodium 132 L, Potassium 5.1, Chloride 98, Carbon Dioxide 27.0, Anion Gap 7, BUN 61 H, Creatinine 3.59 H, Estim Creat Clear Calc 25.71, Est GFR (MDRD) Af Amer 23 L, Est GFR (MDRD) Non-Af 19 L, BUN/Creatinine Ratio 17.0, Glucose 209 H, Calcium 6.2 L*, Total Bilirubin 4.80 H, AST 6683 H, ALT 2315 H, Alkaline Phosphatase 78, Total Creatine Kinase 1754 H, Total Protein 5.6 L, Albumin 3.1 L, Globulin 2.5, Albumin/Globulin Ratio 1.2, Triglycerides 68 12/11/23 21:45: POC Glucose 213 H 12/11/23 22:51: POC Glucose 204 H 12/12/23 03:07: WBC 15.1 H, RBC 4.40 L, Hgb 13.7, Hct 45.3, MCV 103.0 H, MCH 31.1, MCHC 30.2 L, RDW Std Deviation 56.5 H, RDW Coeff of Elaine 15.0 H, Plt Count 91 L, MPV 11.8, Differential Comment SCANNED, PT 44.2 H, INR 4.8 H*, Sodium 130 L, Potassium 5.0, Chloride 95 L, Carbon Dioxide 27.0, Anion Gap 8, BUN 69 H, Creatinine 4.07 H, Estim Creat Clear Calc 22.60, Est GFR (MDRD) Af Amer 20 L, Est GFR (MDRD) Non-Af 16 L, BUN/Creatinine Ratio 17.0, Glucose 216 H, Calcium 6.6 L, Phosphorus 5.4 H, Magnesium 2.0, Total Bilirubin 4.90 H, Direct Bilirubin 3.22 H, AST 4756 H, ALT 2213 H, Alkaline Phosphatase 77, Total Protein 5.6 L, Albumin 2.9 L, Globulin 2.7 12/12/23 04:35: Ionized Calcium 3.89 L 12/12/23 05:08: POC Glucose 232 H Micro: Microbiology 12/10/23 Unknown Sputum, Induced/Lukens Gram Stain - Final 12/10/23 20:50 Mucosa - Nose SARS-CoV-2, Influenza & RSV (PCR) - Final Radiography Diagnostic Testing: Radiology Impression Abdomen Ultrasound 12/11/23 04:52 IMPRESSION: 1. Mild to moderate ascites. 2. Otherwise essentially unremarkable examination. Electronically Signed: Vickey Schofield MD at 12:30 EDT , Echocardiogram 12/11/23 04:52 Interpretation Summary Normal LV size. The estimated ejection fraction is 45 %. D shaped septum in systole and diastole. Pulmonary artery systolic pressure is 30 mmHg. Pulmonary pressures are likely an underestimate due to the right ventricular sy stolic dysfunction. Ordering Physician: Rinku Porras Performed By: Rhoda Sanchez RDCS Physical Exam Narrative GENERAL: Sedated on the vent HEENT: Atraumatic; normocephalic EYES; Anicteric, Normal Conjunctiva NECK; supple, normal thyroid, RESPIRATORY: Diminished to auscultation CARDIOVASCULAR: Regular S1 S2, GI: soft, normoactive bowel sounds, : No Renal angle tenderness; EXTREMITIES: Cyanosis of extremities, MUSCULOSKELETAL: no muscle wasting NEURO: Sedated on the vent SKIN: plantar warts on the left heel Assessment & Plan Assessment/Plan (1) Septic shock: PLAN: Plan Patient is a 58-year-old gentleman with history of polysubstance dependence who was found unresponsive. EMS was called patient was brought to the emergency department patient was intubated. He was reported to have aspirated during the intubation. He later became hypotensive and assessment of septic shock was made patient started on pressors admitted to the intensive care unit for further management 1. Septic shock ? Secondary to suspected aspiration pneumonia. Patient admitted to the intensive care unit resuscitated with IV fluid per protocol also started on broad-spectrum antibiotic therapy response to therapy being monitored with serial lactic acid levels ? 12/12/2023; patient remains on broad-spectrum antibiotic therapy. Patient Levophed has been weaned off 2. Acute hypoxic and hypercapnic respiratory failure -patient was intubated in the emergency department. Admitted to the intensive care unit subsequent vent management deferred to critical care ? 12/12/2023; patient remains intubated Vent management deferred to pulmonary/critical care 3. COPD exacerbation ? Complicating care management as discussed above in addition to systemic steroids 4. Acute renal failure ? Patient baseline creatinine documented from 09/05/2020 was 0.59 creatinine admission was 2.98 patient is on fluids with monitoring of electrolyte ? 12/12/2023 patient kidney function continues to worsen consult was placed to nephrology. 5. Acute hepatic failure ? Patient found to have markedly transaminases (pattern consistent with alcohol use) and INR did receive vitamin K. Consult was placed to GI there was a recommendation to start N-acetylcysteine will defer to patient is evaluated by gastroenterology ? 12/12/2023; patient was seen in consultation by GI. INR remains elevate,patient is bleeding from various sites additional vitamin K given 6. Hypokalemia ? Potassium on admission was 5.3 down to 5.1 7. Hypoglycemia ? Attributed to patient liver failure 8. Polysubstance abuse ? Patient urine drug screen was positive for cannabis benzos MDMA and meth 9. DVT prophylaxis ? Has elevated INR no further treatment warranted Critical Time spent in the patient's overall evaluation,decision-making process, review of diagnostic data, adjustment of management, discussion with other providers, nursing nursing and ancillary staff involved in patient's care documentation, 55 Minutes Charges/Coding Visit Charges Inpatient E&M: 35307 [facility] Hosp L3
[2023-12-12] MEDS: Phytonadione (Vit K) 10 MG in 0.9% Normal Saline (50mL Bag) 50 ML 150 MG IV (08:04)
[2023-12-12 09:10] LABS: HEPATITIS B SURFACE AG Negative (Negative); Hep C Antibodies Non Reactive (Non Reactive); Hepatitis A IgM Antibody Negative (Negative); Hepatitis B Core AB IgM Negative (Negative)
[2023-12-12] MEDS: Pantoprazole Sodium 40 MG in 0.9% Normal Saline (100mL MB+) 100 ML 330 MG IV ×2 (09:14→21:45)
[2023-12-12] MEDS: 0.9% Normal Saline (250mL Bag) 250 ML 15 ML IV (09:14)
[2023-12-12] MEDS: Chlorhexidine 15 ML PO ×2 (09:16→21:51)
[2023-12-12] MEDS: Thiamine Hydrochloride 100 MG in 0.9% Normal Saline (50mL Bag) 50 ML 200 MG IV (10:01)
[2023-12-12] MEDS: Folic Acid 1 MG in 0.9% Normal Saline (50mL Bag) 50 ML 200 MG IV (10:03)
[2023-12-12] MEDS: Vital AF 1.2 Cal Liquid 1,000 ML 10 ML GT (11:06)
[2023-12-12] MEDS: Senna/Docusate Sodium 1 Tablet 2 TABLET GT ×2 (11:06→21:50)
--- NOTE | 2023-12-12 11:13 | PCM.CONS.R ---
Assessment & Plan Assessment/Plan (1) SIGRID (acute kidney injury): (2) Acute hypercapnic respiratory failure: (3) Septic shock: PLAN: Plan This is a 58-year-old male with past medical history significant for COPD and polysubstance abuse who was brought to the emergency room via EMS as patient was found unresponsive at home. Patient was intubated, admitted for acute respiratory failure, concern for aspiration pneumonia and septic shock as well as SIGRID. Nephrology consulted in view of rising serum creatinine. Possible baseline creatinine less than 1 mg/dL as of 2020. On admission creatinine 2.98, creatinine 3.59 yesterday and today creatinine is up to 4.07 mg/dL. Urine output overnight around 100 mL. Potassium is 5.0, bicarb 27. CPK on admission 522 and yesterday 1754. Lactic acid was 9.8, yesterday 5.9. Patient has been significantly hypotensive and has been on Levophed however blood pressures have slightly improved and has been off Levophed as around 5 AM this morning. Patient is on bicarb drip. He is on IV antibiotics Zosyn and vancomycin. Likely SIGRID prerenal which is evolving to ATN from septic shock, hypotension, infection. Patient had noncontrast CT of abdomen/pelvis, no significant renal parenchymal abnormality, nondistended urinary bladder Landry catheter in place. At this time there is no acute indication for renal replacement therapy but will have better idea over next 24 hours by following renal trajectory, electrolytes and urine output. Patient is documented net +11 L, will sop bicarb gtt and give one-time dose of Lasix 60 mg IV and monitor for response. Should renal function worsen and/or no urine output then patient may be heading towards renal replacement therapy. Hopefully with improvement of hemodynamics renal function will improve. Further orders forthcoming as hospitalization evolves, thank you for allowing us to participate in the care of Mr. Katz. HPI Consult Data Date of Consult: 12/12/23 HPI Narrative HPI Narrative: RONNIE KATZ, is a 58 M who was brought to the emergency room 12/09 via EMS as patient was found to be unresponsive at home. Patient was ultimately intubated in the emergency room and admitted to ICU for further evaluation and treatment. Patient was hypotensive upon admission and had been on pressor support. Concern for aspiration pneumonia and septic shock. Patient has past medical history significant for COPD, alcohol and chronic illicit drug use. Patient did test positive for benzodiazepines, marijuana and ecstasy. Nephrology consulted in view of rising serum creatinine. Information is gathered from the chart as patient remains intubated on ventilator support. Creatinine on admission was 2.98, yesterday creatinine 3.59 and today patient's creatinine is up to 4.07. Previous labs to review September 04, 2020 creatinine 1.11 and September 05, 2020 creatinine 0.59. Urine output overnight around 100 mL. [facility] Medical History (Updated 12/11/23 @ 00:[address] Darrell Ponce MD) COPD (chronic obstructive pulmonary disease) Medical History unable to obtain Home Medications aripiprazole 5 mg tablet 5 mg PO DAILY mental health 09/04/20 [History Last Taken 09/03/20 09:00] sertraline 100 mg tablet 200 mg PO DAILY depression 09/04/20 [History Last Taken 09/03/20 09:00] Allergy/AdvReac Type Severity Reaction Status Date / Time No Known Allergies Allergy Verified 12/10/23 21:31 Family History unable to obtain Surgical History unable to obtain Social History Smoking Status: Unknown if ever smoked ROS ROS Narrative Unable to obtain Physical Exam Narrative No apparent distress, on ventilator S1, S2, RRR Lung sounds diminished, no rales or rhonchi Abdomen soft, rounded no pitting edema Indwelling Landry with scant straw-colored urine in bag Lab / Micro Data 12/12/23 03:07 12/12/23 03:07 Labs: Laboratory Results - last 24 hr 12/11/23 04:55: Hepatitis A IgM Ab Negative, Hep Bs Antigen Negative, Hep B Core IgM Ab Negative, Hepatitis C Ab (EIA) Non Reactive, Hep C Ab Comment Comment 12/11/23 12:26: POC Glucose 172 H 12/11/23 19:15: Sodium 132 L, Potassium 5.1, Chloride 98, Carbon Dioxide 27.0, Anion Gap 7, BUN 61 H, Creatinine 3.59 H, Estim Creat Clear Calc 25.71, Est GFR (MDRD) Af Amer 23 L, Est GFR (MDRD) Non-Af 19 L, BUN/Creatinine Ratio 17.0, Glucose 209 H, Calcium 6.2 L*, Total Bilirubin 4.80 H, AST 6683 H, ALT 2315 H, Alkaline Phosphatase 78, Total Creatine Kinase 1754 H, Total Protein 5.6 L, Albumin 3.1 L, Globulin 2.5, Albumin/Globulin Ratio 1.2, Triglycerides 68 12/11/23 21:45: POC Glucose 213 H 12/11/23 22:51: POC Glucose 204 H 12/12/23 03:07: WBC 15.1 H, RBC 4.40 L, Hgb 13.7, Hct 45.3, MCV 103.0 H, MCH 31.1, MCHC 30.2 L, RDW Std Deviation 56.5 H, RDW Coeff of Elaine 15.0 H, Plt Count 91 L, MPV 11.8, Differential Comment SCANNED, PT 44.2 H, INR 4.8 H*, Sodium 130 L, Potassium 5.0, Chloride 95 L, Carbon Dioxide 27.0, Anion Gap 8, BUN 69 H, Creatinine 4.07 H, Estim Creat Clear Calc 22.60, Est GFR (MDRD) Af Amer 20 L, Est GFR (MDRD) Non-Af 16 L, BUN/Creatinine Ratio 17.0, Glucose 216 H, Calcium 6.6 L, Phosphorus 5.4 H, Magnesium 2.0, Total Bilirubin 4.90 H, Direct Bilirubin 3.22 H, AST 4756 H, ALT 2213 H, Alkaline Phosphatase 77, Total Protein 5.6 L, Albumin 2.9 L, Globulin 2.7 12/12/23 04:35: Ionized Calcium 3.89 L 12/12/23 05:08: POC Glucose 232 H Micro: Microbiology 12/10/23 20:50 Blood Culture (Wb) - Anticubital Right Blood Culture - Preliminary 12/10/23 Unknown Sputum, Induced/Lukens Gram Stain - Final 12/10/23 Unknown Sputum, Induced/Lukens Respiratory Culture - Preliminary Staphylococcus aureus Gram negative cocco bacillus 12/10/23 20:50 Urine Catheter - Landry Urine Culture - Final Culture exhibits no growth. Imaging Radiology Impression Abdomen Ultrasound 12/11/23 04:52 IMPRESSION: 1. Mild to moderate ascites. 2. Otherwise essentially unremarkable examination. Electronically Signed: Vickey Schofield MD at 12:30 EDT , Echocardiogram 12/11/23 04:52 Interpretation Summary Normal LV size. The estimated ejection fraction is 45 %. D shaped septum in systole and diastole. Pulmonary artery systolic pressure is 30 mmHg. Pulmonary pressures are likely an underestimate due to the right ventricular systolic dysfunction. Ordering Physician: Rinku Porras Performed By: Rhoda Sanchez RDCS
[2023-12-12] MEDS: Furosemide 100 MG/10 ML Vial 60 MG IV (11:54)
[2023-12-12 13:51] LABS: Bedside Glucose 211 mg/dL (74-106)
--- NOTE | 2023-12-12 16:25 | NURSING ---
Rectal temp 104.1, placed cooling blanket per MD rodas
[2023-12-12 17:48] LABS: Bedside Glucose 155 mg/dL (74-106)
[2023-12-12] MEDS: Vancomycin Trough/Random Due 1 LAB MC (21:50)
--- NOTE | 2023-12-12 22:40 | PCM.RX.CS ---
Consult Antibiotic Management Pharmacy has been consulted to manage selected antibiotic: Vancomycin Type of Intervention Type of Consult: Follow-up Labs Labs: Sodium 130 mmol/L (136-145) L 12/12/23 03:07 Potassium 5.0 mmol/L (3.5-5.1) 12/12/23 03:07 Chloride 95 mmol/L (98-107) L 12/12/23 03:07 Carbon Dioxide 27.0 mmol/L (21.0-32.0) 12/12/23 03:07 Anion Gap 8 (5-15) 12/12/23 03:07 BUN 69 mg/dL (7-18) H 12/12/23 03:07 Creatinine 4.07 mg/dL (0.70-1.30) H 12/12/23 03:07 Est GFR (MDRD) Af Amer 20 mL/min (>60) L 12/12/23 03:07 Est GFR (MDRD) Non-Af 16 mL/min (>60) L 12/12/23 03:07 BUN/Creatinine Ratio 17.0 RATIO (10-20) 12/12/23 03:07 Glucose 216 mg/dL (74-106) H 12/12/23 03:07 Vancomycin Trough 27.0 ug/mL (5.0-15.0) H 12/12/23 22:00 Microbiology Microbiology: Microbiology 12/10/23 Unknown Sputum, Induced/Lukens Gram Stain - Final 12/10/23 Unknown Sputum, Induced/Lukens Respiratory Culture - Preliminary Staphylococcus aureus Haemophilus influenzae 12/10/23 20:50 Blood Culture (Wb) - Anticubital Right Blood Culture - Preliminary 12/10/23 20:50 Urine Catheter - Landry Urine Culture - Final Culture exhibits no growth. 12/10/23 20:50 Mucosa - Nose SARS-CoV-2, Influenza & RSV (PCR) - Final Goal Trough Goal Trough: 15-20 mcg/mL Pharmacy Plan for Drug Dosing Pharmacy Plan for Drug Dosing: Pharmacy Service will continue to monitor and adjust dosing as required. TROUGH 27 @ 23.5 HOURS. HOLD DOSE AND DRAW RANDOM LEVEL IN 18 HOURS Follow-Up Labs Follow-Up Labs: Trough: Vancomycin Date/Time Labs Ordered Labs to be done on [date and time ordered]: 12/12 @ 1635
[2023-12-13] VITALS (55 sets, daily range): BP systolic 72–259; BP diastolic 51–80; PULSE 94–116; RESP 12–23; TEMP 36.2–37.9; O2SAT 88–99; BMI 29.5; BMI 29.4; BMI 28.6
[2023-12-13] MEDS: Hydrocortisone Sod Succinate 100 MG/2 ML Vial 50 MG IV ×5 (00:26→23:26)
[2023-12-13] MEDS: Insulin Lispro 100 UNIT/ML INSULN.PEN SC ×4 (00:27→23:31)
[2023-12-13 00:52] LABS: Bedside Glucose 155 mg/dL (74-106)
[2023-12-13] MEDS: CHLORHEXIDINE GLUC 2% CLOTH 1 EACH TOWELETTE TOPICAL ×2 (02:15→09:31)
[2023-12-13 03:39] LABS: Hemoglobin 14.4 g/dL (13.0-16.5); Mean Corp Hgb Conc 31.3 g/dL (32-36); Mean Corpuscular Hgb 31.4 pg (27.0-32.0); Mean Corpuscular Volume 100.4 fL (80-94); Mean Platelet Vol. 11.9 fl (6.2-12.0); POSITIVE COUNT YES; Platelet Count 74 K/mm3 (150-450); RBC Distribution Width CV 15.1 % (11.6-14.6); RBC Distribution Width SD 55.8 fl (35.1-43.9); Red Blood Count 4.58 M/mm3 (4.6-6.2); White Blood Count 13.4 K/mm3 (4.4-11.0)
[2023-12-13] MEDS: Ipratropium/Albuterol Sulfate 3 ML AMPUL.NEB INHALATION ×6 (03:40→23:27)
[2023-12-13 03:46] LABS: Scan Indicated on CBC? Y/N NO
[2023-12-13 03:51] LABS: International Normalized Ratio 2.7; Prothrombin Time (Protime)PT. 28.3 SECONDS (11.7-14.9)
[2023-12-13 04:17] LABS: AST(SGOT) 1168 U/L (15-37); Alanine Aminotransfer ALT/SGPT 1541 U/L (16-61); Alkaline Phosphatase 72 U/L (45-117); Anion Gap 12 (5-15); BUN 88 mg/dL (7-18); BUN/Creat Ratio 17.5 RATIO (10-20); Bilirubin, Direct 4.89 mg/dL (0.00-0.30); Chloride 94 mmol/L (98-107); Creatinine, Serum 5.03 mg/dL (0.70-1.30); EST Glomerular Filtration Rate 13 mL/min (>60); Est Glom Filt Rate - Afr Amer 15 mL/min (>60); Estimated Creatinine Clearance 18.29 ml/min; Globulin 3.2 g/dL (2.2-4.2); Glucose 190 mg/dL (74-106); Potassium 5.2 mmol/L (3.5-5.1); Protein, Total 6.2 g/dL (6.4-8.2); Sodium Level 130 mmol/L (136-145)
[2023-12-13] MEDS: fentaNYL drip 100 ML 7.5 MCG CONT INF (04:41)
--- NOTE | 2023-12-13 04:48 | NURSING ---
Addendum entered by Ramon Cee 12/13/23 04:50: Unable to chart 0400 titration/cpot. Cpot 0/1 and infusing at 7.5 mL/hr Original Note: Fentanyl drip per the mar was empty at 0345; however volume still in the bag. new drip hung at 0441.
[2023-12-13] MEDS: Piperacil/Tazobactam 3.375 GM in 0.9% Normal Saline (50mL MB+) 50 ML IV ×2 (05:52→21:05)
--- NOTE | 2023-12-13 05:55 | RAD_ITS ---
INDICATION: resp failure vent EXAMINATION/TECHNIQUE: X-RAY - XR Chest 1 View COMPARISON: 12/10/2023. FINDINGS: LINES/DEVICES: Endotracheal tube and enteric tube are stable. Right upper extremity PICC line with the tip overlying the right atrium. LUNGS: Pulmonary vascular congestion. Interstitial edema. Left lower lobe atelectasis versus infiltrate. Small left pleural effusion. No evidence of a pneumothorax. Right basilar atelectasis. MEDIASTINUM AND CARDIOVASCULAR STRUCTURES: Cardiac silhouette is normal in size and contour. Mediastinum is unremarkable. BONES AND SOFT TISSUES: No acute abnormality. RAD/Chest 1 View (Portable) IMPRESSION: 1. Pulmonary vascular congestion and interstitial edema. 2. Left basilar atelectasis versus infiltrate and small left pleural effusion. 3. Right upper extremity PICC line with the tip overlying the right atrium. Electronically Signed: Terrance Green DO at 4:38 EDT ,
[2023-12-13 06:21] LABS: Bedside Glucose 195 mg/dL (74-106)
--- NOTE | 2023-12-13 07:29 | PCM.PN.HOSP ---
Reason for Visit Reason for Visit: Diagnoses Sepsis, unspecified organism (12/10/23) Other psychoactive substance abuse, uncomplicated (12/10/23) Severe sepsis with septic shock (12/10/23) Unspecified foreign body in respiratory tract, part unspecified causing other injury, initial encounter (12/10/23) Subjective Subjective Patient seen remains on the vent. Transaminases continue to improve however kidney function is worsening. Potassium up to 5.1 sodium down to 130. Objective Data Objective Data Vital Signs: Vital Signs Temp Pulse Resp BP Pulse Ox O2 Del Method O2 Flow Rate 98.0 F 101 H 14 89/62 L 95 Mechanical Ventilator 60 12/13/23 07:00 12/13/23 07:17 12/13/23 07:17 12/13/23 07:00 12/13/23 07:17 12/13/23 07:00 12/13/23 07:00 FiO2 95 12/13/23 07:17 Oxygen Flow Rate (L/min) 60 Oxygen Delivery Method Mechanical Ventilator Weight: 93.3 kg Body Mass Index (BMI) 29.5 Intake & Output: Intake and Output for Last 24 Hours 12/11/23 12/12/23 12/13/23 23:59 23:59 23:59 Intake Total 8941.90 / 8963.80 3851.64 / 3973.14 459.25 / 459.25 Output Total 1215 / 1215 375 / 375 0 / 0 Balance 7726.90 / 7748.80 3476.64 / 3598.14 459.25 / 459.25 Lab / Micro Data 12/13/23 03:24 12/13/23 03:24 Labs: Laboratory Results - last 24 hr 12/11/23 04:55: Hepatitis A IgM Ab Negative, Hep Bs Antigen Negative, Hep B Core IgM Ab Negative, Hepatitis C Ab (EIA) Non Reactive, Hep C Ab Comment Comment 12/12/23 11:15: POC Glucose 211 H 12/12/23 12:18: Ammonia 110.0 H 12/12/23 17:30: POC Glucose 155 H 12/12/23 22:00: Vancomycin Trough 27.0 H 12/13/23 00:25: POC Glucose 155 H 12/13/23 03:24: WBC 13.4 H, RBC 4.58 L, Hgb 14.4, Hct 46.0, MCV 100.4 H, MCH 31.4, MCHC 31.3 L, RDW Std Deviation 55.8 H, RDW Coeff of Elaine 15.1 H, Plt Count 74 L, MPV 11.9, PT 28.3 H, INR 2.7, Sodium 130 L, Potassium 5.2 H, Chloride 94 L, Carbon Dioxide 24.0, Anion Gap 12, BUN 88 H, Creatinine 5.03 H, Estim Creat Clear Calc 18.29, Est GFR (MDRD) Af Amer 15 L, Est GFR (MDRD) Non-Af 13 L, BUN/Creatinine Ratio 17.5, Glucose 190 H, Calcium 7.0 L, Total Bilirubin 6.80 H, Direct Bilirubin 4.89 H, AST 1168 H, ALT 1541 H, Alkaline Phosphatase 72, Total Protein 6.2 L, Albumin 3.0 L, Globulin 3.2 12/13/23 05:56: POC Glucose 195 H Micro: Microbiology 12/10/23 Unknown Sputum, Induced/Lukens Gram Stain - Final 12/10/23 Unknown Sputum, Induced/Lukens Respiratory Culture - Preliminary Staphylococcus aureus Haemophilus influenzae 12/10/23 20:50 Blood Culture (Wb) - Anticubital Right Blood Culture - Preliminary 12/10/23 20:50 Urine Catheter - Landry Urine Culture - Final Culture exhibits no growth. 12/10/23 20:50 Mucosa - Nose SARS-CoV-2, Influenza & RSV (PCR) - Final Radiography Diagnostic Testing: Radiology Impression Chest X-Ray 12/13/23 05:55 IMPRESSION: 1. Pulmonary vascular congestion and interstitial edema. 2. Left basilar atelectasis versus infiltrate and small left pleural effusion. 3. Right upper extremity PICC line with the tip overlying the right atrium. Electronically Signed: Terrance Green DO at 4:38 EDT , Physical Exam Narrative GENERAL: Sedated on the vent HEENT: Atraumatic; normocephalic EYES; Anicteric, Normal Conjunctiva NECK; supple, normal thyroid, RESPIRATORY: Diminished to auscultation CARDIOVASCULAR: Regular S1 S2, GI: soft, normoactive bowel sounds, : No Renal angle tenderness; EXTREMITIES: Cyanosis of extremities, MUSCULOSKELETAL: no muscle wasting NEURO: Sedated on the vent SKIN: plantar warts on the left heel Assessment & Plan Assessment/Plan (1) Septic shock: PLAN: Plan Patient is a 58-year-old gentleman with history of polysubstance dependence who was found unresponsive. EMS was called patient was brought to the emergency department patient was intubated. He was reported to have aspirated during the intubation. He later became hypotensive and assessment of septic shock was made patient started on pressors admitted to the intensive care unit for further management 1. Septic shock ? Secondary to suspected aspiration pneumonia. Patient admitted to the intensive care unit resuscitated with IV fluid per protocol also started on broad-spectrum antibiotic therapy response to therapy being monitored with serial lactic acid levels ? 12/12/2023; patient remains on broad-spectrum antibiotic therapy. Patient Levophed has been weaned off 2. Acute hypoxic and hypercapnic respiratory failure -patient was intubated in the emergency department. Admitted to the intensive care unit subsequent vent management deferred to critical care ? 12/12/2023; patient remains intubated Vent management deferred to pulmonary/critical care ? 12/13/2023 checks x-ray obtained this a.m. did show Pulmonary vascular congestion and interstitial edema as well as left base basilar atelectasis versus infiltrate and small left pleural effusion. Patient oxygen demand going on currently on 100% FiO2 with a PEEP of 10. 3. COPD exacerbation ? Complicating care management as discussed above in addition to systemic steroids 4. Acute renal failure ? Patient baseline creatinine documented from 09/05/2020 was 0.59 creatinine admission was 2.98 patient is on fluids with monitoring of electrolyte ? 12/12/2023 patient kidney function continues to worsen consult was placed to nephrology. ? 12/13/2023; patient kidney function continues to worsen patient may be a candidate for renal replacement therapy. 5. Acute hepatic failure ? Patient found to have markedly transaminases (pattern consistent with alcohol use) and INR did receive vitamin K. Consult was placed to GI there was a recommendation to start N-acetylcysteine will defer to patient is evaluated by gastroenterology ? 12/12/2023; patient was seen in consultation by GI. INR remains elevate,patient is bleeding from various sites additional vitamin K given ? 12/13/2023 INR down to 2.4. 6. Hypokalemia ? Potassium on admission was 5.3 down to 5.1 7. Hypoglycemia ? Attributed to patient liver failure 8. Polysubstance abuse ? Patient urine drug screen was positive for cannabis benzos MDMA and meth 9. DVT prophylaxis ? Has elevated INR no further treatment warranted Critical Time spent in the patient's overall evaluation,decision-making process, review of diagnostic data, adjustment of management, discussion with other providers, nursing nursing and ancillary staff involved in patient's care documentation, 50 Minutes Charges/Coding Visit Charges Inpatient E&M: 96178 [facility] Hosp L3
--- NOTE | 2023-12-13 08:32 | PCM.PN.TICU ---
Objective Data Objective Data Vital Signs: Vital Signs Last response Temperature 37.2 C 12/13/23 08:00 Temperature Source Temporal 12/13/23 08:00 Pulse Rate 104 H 12/13/23 08:00 Pulse Strength Weak (1+) 12/12/23 22:00 Respiratory Rate 14 12/13/23 08:00 Respiratory Effort Non-Labored, Mechanically Ventilated 12/13/23 07:45 Respiratory Depth Normal 12/13/23 07:45 Respiratory Pattern Normal 12/13/23 07:45 Blood Pressure 86/65 L 12/13/23 08:00 Blood Pressure Mean 72 12/13/23 08:00 Blood Pressure Source Monitor 12/13/23 08:00 Blood Pressure Position Semi-Fowlers 12/13/23 08:00 Blood Pressure Location Left Arm 12/13/23 08:00 Pulse Ox 95 12/13/23 08:00 Oxygen Delivery Method Mechanical Ventilator 12/13/23 08:00 Oxygen Flow Rate (L/min) 60 12/13/23 07:00 Fraction of Inspired Oxygen (FIO2) 100 12/13/23 08:00 I&O: I&O Last 24 Hours 12/12/23 12/12/23 12/13/23 11:59 23:59 11:59 Intake Total 3137.01 / 3973.14 714.63 / 3973.14 519.25 / 519.25 Output Total 250 / 375 125 / 375 0 / 0 Balance 2887.01 / 3598.14 589.63 / 3598.14 519.25 / 519.25 I&O: Total Stay 12/10/23 20:39 thru 12/13/23 07:45 Intake Total 10779.37 Output Total 1590 Balance 58801.37 Current Meds Ordered / Administered: Current meds ordered / Administered Generic Name Dose Route Start Last Admin Trade Name Freq PRN Reason Stop Dose Admin Albuterol/Ipratropium 3 ml 12/11/23 06:00 12/13/23 07:15 Ipratropium/Albuterol Sulfate 3 Ml Ampul.Neb INHALATION 3 ml Q4H.RT FANY Administration Chlorhexidine Gluconate 15 ml 12/11/23 10:00 12/12/23 21:51 Chlorhexidine 15 Ml PO 15 ml BID FANY Administration Chlorhexidine Gluconate 1 each 12/12/23 10:00 12/13/23 02:15 Chlorhexidine Gluc 2% Cloth 1 Each Towelette TOPICAL 1 each DAILY FANY Administration Fentanyl Citrate 50 mcg 12/11/23 04:41 Fentanyl 100 Mcg/2 Ml Ampul IV Q2H PRN PRN Pain >/= 4/10 or CPOT>/= 3/8 Hydrocortisone Sodium Succinate 50 mg 12/11/23 06:00 12/13/23 05:57 Hydrocortisone Sod Succinate 100 Mg/2 Ml Vial IV 50 mg Q6 FANY Administration Fentanyl 100 mls @ 2.5 mls/hr 12/10/23 21:55 12/13/23 07:00 CONT INF 75 mcg/hr UD FANY 7.5 mls/hr Titration Protocol 25 MCG/HR Vancomycin IV-PHARMACY TO DOSE 500 mls @ 250 mls/hr 12/11/23 01:38 1 each/ Sodium Chloride IV PRN PRN Rx to Dose Protocol Folic Acid 1 mg/ Sodium 50.2 mls @ 200 mls/hr 12/11/23 10:00 12/12/23 10:20 Chloride IV Infused DAILY FANY Infusion Thiamine HCl 100 mg/ Sodium 51 mls @ 200 mls/hr 12/11/23 10:00 12/12/23 10:20 Chloride IV Infused DAILY FANY Infusion Sodium Chloride 250 mls @ 15 mls/hr 12/11/23 01:50 IV .[id number] PRN Additional IVPB Infusion Sodium Chloride 250 mls @ 15 mls/hr 12/11/23 01:50 12/13/23 05:52 IV Infused .[id number] PRN Infusion Saline Flush Piperacillin Sod/Tazobactam 50 mls @ 12.5 mls/hr 12/11/23 05:00 12/13/23 05:52 Sod 3.375 gm/ Sodium Chloride IV 12.5 mls/hr Q8 FANY Administration Norepinephrine Bitartrate 8 mg 250 mls @ 9.375 mls/hr 12/12/23 04:35 12/13/23 07:29 / Sodium Chloride CONT INF Not Given .[id number] FANY Protocol 5 MCG/MIN Pantoprazole Sodium 40 mg/ 110 mls @ 330 mls/hr 12/12/23 10:00 12/12/23 22:05 Sodium Chloride IV Infused Q12 FANY Infusion Enteral Nutritional Formula 1,000 mls @ 10 mls/hr 12/12/23 10:05 12/13/23 00:00 Vital Af 1.2 Nicholas Liquid GT 10 mls/hr .Q48H FANY Infusion Insulin Human Lispro 0 unit 12/12/23 00:00 12/13/23 05:57 Insulin Lispro 100 Unit/Ml Insuln.Pen SC 2 u Q6 FANY Administration Protocol Midazolam HCl 2 mg 12/11/23 04:41 Midazolam 2 Mg/2 Ml Syringe IV Q2H PRN PRN sedation Senna/Docusate Sodium 2 tablet 12/12/23 10:00 12/12/23 21:50 Senna/Docusate Sodium 1 Tablet GT 2 tablet BID FANY Administration Sodium Chloride 10 - 40 ml 12/11/23 01:50 12/12/23 21:49 0.9% Saline Lock 10 Ml Syringe IV 20 ml UD PRN Administration SALINE FLUSH Vancomycin Protocol 1 lab 12/13/23 14:30 Vancomycin Trough/Random Due MC 12/13/23 18:30 DAILY [facility] Lab / Micro Data 12/13/23 03:24 12/13/23 03:24 Labs: Laboratory Results - last 24 hr 12/11/23 04:55: Hepatitis A IgM Ab Negative, Hep Bs Antigen Negative, Hep B Core IgM Ab Negative, Hepatitis C Ab (EIA) Non Reactive, Hep C Ab Comment Comment 12/12/23 11:15: POC Glucose 211 H 12/12/23 12:18: Ammonia 110.0 H 12/12/23 17:30: POC Glucose 155 H 12/12/23 22:00: Vancomycin Trough 27.0 H 12/13/23 00:25: POC Glucose 155 H 12/13/23 03:24: WBC 13.4 H, RBC 4.58 L, Hgb 14.4, Hct 46.0, MCV 100.4 H, MCH 31.4, MCHC 31.3 L, RDW Std Deviation 55.8 H, RDW Coeff of Elaine 15.1 H, Plt Count 74 L, MPV 11.9, PT 28.3 H, INR 2.7, Sodium 130 L, Potassium 5.2 H, Chloride 94 L, Carbon Dioxide 24.0, Anion Gap 12, BUN 88 H, Creatinine 5.03 H, Estim Creat Clear Calc 18.29, Est GFR (MDRD) Af Amer 15 L, Est GFR (MDRD) Non-Af 13 L, BUN/Creatinine Ratio 17.5, Glucose 190 H, Calcium 7.0 L, Total Bilirubin 6.80 H, Direct Bilirubin 4.89 H, AST 1168 H, ALT 1541 H, Alkaline Phosphatase 72, Total Protein 6.2 L, Albumin 3.0 L, Globulin 3.2 12/13/23 05:56: POC Glucose 195 H Micro: Microbiology 12/10/23 Unknown Sputum, Induced/Lukens Gram Stain - Final 12/10/23 Unknown Sputum, Induced/Lukens Respiratory Culture - Final Staphylococcus aureus Haemophilus influenzae 12/10/23 20:50 Blood Culture (Wb) - Anticubital Right Blood Culture - Preliminary No growth in 48 hours. 12/10/23 20:50 Blood Culture (Wb) - Anticubital Left Blood Culture - Preliminary No growth in 48 hours. 12/10/23 20:50 Urine Catheter - Landry Urine Culture - Final Culture exhibits no growth. Imaging Radiology Impression Chest X-Ray 12/13/23 05:55 IMPRESSION: 1. Pulmonary vascular congestion and interstitial edema. 2. Left basilar atelectasis versus infiltrate and small left pleural effusion. 3. Right upper extremity PICC line with the tip overlying the right atrium. Electronically Signed: Terrance GreenDO viviane at 4:38 EDT , Assessment and Plan . Assessment and plan: Subjective: No acute events o/n. Remains on high vent support. Off pressors now Physical Exam: Gen - NAD, intubated HEENT - MMM. ETT in place Resp - Diminished BS. Mechanically ventilated CV - RRR. No m/g/r Abd - Soft, NT, +distension Ext - No c/c. ++edema Skin - No rashes Neuro - Sedated, intubated. Minimally responsive on low amount of sedation I have reviewed the pertinent vital sign, laboratory, and imaging data. ASSESSMENT: # Acute hypoxic respiratory failure # Septic shock # Pneumonia - ?cavitary LL lesion vs bleb # COPD exacerbation # SIGRID # Acute encephalopathy # Thrombocytopenia # Lactic acidosis # Acute liver failure/transaminitis # UDS positive for ecstasy, amphetamine, benzo, MJ # Coagulopathy PLAN: -Cont vent VC 500/14/10/95%. Follow ABG/CXR -Wean sedation as tolerated, follow mental status. Add lactulose -Nephrology following. Agree with starting HD/CRRT given worsening SIGRID/hypervolemia -Cont abx, sputum Cx with MSSA and H flu. -Check LE dopplers -Trend lactate -Follow CBC, coags. Monitor for bleeding. Had some prior coffee grounds and line oozing reported, currently resolved -Monitor LFTs -SSI FEN/GI: TF Proph DVT/GI: SCDs, protonix Critical Care Time: 50 mins The entirety of this encounter was completed via telemedicine
--- NOTE | 2023-12-13 09:08 | VDLE_ITS ---
Reason For Study: BLE Swelling RIGHT LEFT GSV is normal. GSV is normal. CFV is compressible, spontaneous, competent CFV is compressible, spontaneous, competent, and demonstrates pulsatile venous flow. and demonstrates pulsatile venous flow. FV is compressible, spontaneous, competent FV is compressible, spontaneous, competent and demonstrates pulsatile venous flow. and demonstrates pulsatile venous flow. POP V is compressible, spontaneous, competent POP V is compressible, spontaneous, competent and demonstrates pulsatile venous flow. and demonstrates pulsatile venous flow. T/P Trunk is compressible. T/P Trunk is compressible. PTV is compressible. PTV is compressible. RT PerV is compressible. LT PerV is compressible. Procedure This is a venous duplex using B-mode, color flow and spectral Doppler. Exam performed portable in ICU/CCU. The study was technically difficult. A preliminary report was called and/or faxed to ICU speech and hearing clinic director. VL/Venous Duplex US - Dante Extrem Interpretation Summary Deep veins of the bilateral lower extremities are patent and compressible segme ntally. There is no evidence of bilateral lower extremity deep vein thrombosis. The bilateral great saphenous veins appear patent and compressible segmentally. Ordering Physician: Singh Recinos Referring Physician: Aleksander Moyer Performed By: Albert Teague RVT
[2023-12-13] MEDS: 0.9% Saline Lock 10 ML Syringe IV ×5 (09:26→17:22)
[2023-12-13] MEDS: Pantoprazole Sodium 40 MG in 0.9% Normal Saline (100mL MB+) 100 ML 330 MG IV ×2 (09:26→20:16)
[2023-12-13] MEDS: Chlorhexidine 15 ML PO ×2 (09:31→21:05)
[2023-12-13] MEDS: Senna/Docusate Sodium 1 Tablet 2 TABLET GT ×2 (09:31→20:16)
[2023-12-13] MEDS: Lactulose 20 GM/30 ML UDC PO ×3 (09:35→20:16)
[2023-12-13 09:41] LABS: Base Excess -3 mmol/L (-2 to +2); Bicarbonate 24.8 mmol/L (22-26); Blood Gas Specimen Type ART; Mode AC; O2 Delivery Device Adult Vent; PEEP 10; PO2 75 mmHG (75-100); RR 14; SITE L Brach; SO2 91 % (95-99); Total Carbon Dioxide 27 mmol/L; pCO2 64.1 mmHg (35-45)
[2023-12-13] MEDS: Folic Acid 1 MG in 0.9% Normal Saline (50mL Bag) 50 ML 200 MG IV (09:59)
[2023-12-13] MEDS: Thiamine Hydrochloride 100 MG in 0.9% Normal Saline (50mL Bag) 50 ML 200 MG IV (10:18)
[2023-12-13] MEDS: Heparin 10,000 UNITS/10 ML Vial 2500 UNITS IV (10:41)
--- NOTE | 2023-12-13 10:55 | RAD_ITS ---
STUDY: X-RAY CHEST REASON FOR EXAM: Male, 58 years old. LIJ dialysis line insertion TECHNIQUE: Single AP portable view of the chest. COMPARISON: Comparison is made with prior study done earlier in the day. FINDINGS: An endotracheal tube is in situ. The tip is at 6.2 cm proximal to the jorge. An orogastric tube is seen with the tip in the body of the stomach. A left-sided internal jugular venous catheter has been placed. The tip is at the junction of the superior vena cava and right atrium. EKG electrodes are seen. A right-sided PICC line catheter is present with the tip overlying the right atrium. Stable increased markings at the lung bases more prominent on the left side. There is no demonstrated pleural abnormality. Normal size heart. Normal mediastinum and gregorio. Normal visualized pulmonary arteries. Normal visualized aortic arch and descending thoracic aorta. Normal visualized thoracic spine. Normal visualized ribs, clavicles, and shoulders. Hiatal hernia. RAD/CXR for Line Placement IMPRESSION: Essentially stable examination. Left-sided internal jugular venous catheter has been placed with the tip at the junction of the superior vena cava and right atrium. Electronically Signed: Sumit Mcknight MD at 11:19 EDT ,
[2023-12-13 11:24] LABS: Bedside Glucose 170 mg/dL (74-106)
--- NOTE | 2023-12-13 11:32 | CPS ---
Per Dr Recinos increased RR to 22
[2023-12-13] MEDS: Norepinephrine 8 MG in 0.9% Normal Saline (250mL Bag) 242 ML 9.4 MG CONT INF (12:00)
[2023-12-13 12:10] LABS: Allen Test Positive; Base Excess -2 mmol/L (-2 to +2); Bicarbonate 24.9 mmol/L (22-26); Blood Gas Specimen Type ART; Mode AC; O2 Delivery Device Adult Vent; PEEP 10; PO2 79 mmHG (75-100); RR 22; SITE L Radial; SO2 94 % (95-99); Total Carbon Dioxide 26 mmol/L; pCO2 50.8 mmHg (35-45)
[2023-12-13] MEDS: 0.9% Normal Saline 1,000 ML IV.SOLN. 1000 ML OPERA.SITE (12:18)
[2023-12-13] MEDS: PureFlow B 2K Dialysis Soln 1 BAG 6 BAG PF (12:18)
--- NOTE | 2023-12-13 13:30 | PN.RENAL_ITS ---
Subjective Subjective minimal urine output cr worse K borderline high Objective Data Objective Data Vital Signs: Vital Signs Temp Pulse Resp BP Pulse Ox O2 Del Method O2 Flow Rate 99.9 F H 103 H 22 H 82/63 L 99 Mechanical Ventilator 95 12/13/23 12:00 12/13/23 13:14 12/13/23 13:14 12/13/23 13:14 12/13/23 13:14 12/13/23 13:14 12/13/23 12:05 FiO2 95 12/13/23 13:00 Oxygen Flow Rate (L/min) 95 Oxygen Delivery Method Mechanical Ventilator Weight: 93.3 kg Body Mass Index (BMI) 29.4 Intake & Output: Intake and Output for Last 24 Hours 12/11/23 12/12/23 12/13/23 23:59 23:59 23:59 Intake Total 8941.90 / 8963.80 3851.64 / 3973.14 1000.18 / 1000.18 Output Total 1215 / 1215 375 / 375 20 / 20 Balance 7726.90 / 7748.80 3476.64 / 3598.14 980.18 / 980.18 Lab / Micro Data 12/13/23 03:24 12/13/23 03:24 Labs: Laboratory Results - last 24 hr 12/12/23 11:15: POC Glucose 211 H 12/12/23 17:30: POC Glucose 155 H 12/12/23 22:00: Vancomycin Trough 27.0 H 12/13/23 00:25: POC Glucose 155 H 12/13/23 03:24: WBC 13.4 H, RBC 4.58 L, Hgb 14.4, Hct 46.0, MCV 100.4 H, MCH 31.4, MCHC 31.3 L, RDW Std Deviation 55.8 H, RDW Coeff of Elaine 15.1 H, Plt Count 74 L, MPV 11.9, PT 28.3 H, INR 2.7, Sodium 130 L, Potassium 5.2 H, Chloride 94 L , Carbon Dioxide 24.0, Anion Gap 12, BUN 88 H, Creatinine 5.03 H, Estim Creat Clear Calc 18.29, Est GFR (MDRD) Af Amer 15 L, Est GFR (MDRD) Non-Af 13 L, BUN/Creatinine Ratio 17.5, Glucose 190 H, Calcium 7.0 L, Total Bilirubin 6.80 H, Direct Bilirubin 4.89 H, AST 1168 H, ALT 1541 H, Alkaline Phosphatase 72, Total Protein 6.2 L, Albumin 3.0 L, Globulin 3.2 12/13/23 05:56: POC Glucose 195 H 12/13/23 11:01: POC Glucose 170 H Micro: Microbiology 12/10/23 Unknown Sputum, Induced/Lukens Gram Stain - Final 12/10/23 Unknown Sputum, Induced/Lukens Respiratory Culture - Final Staphylococcus aureus Haemophilus influenzae 12/10/23 20:50 Blood Culture (Wb) - Anticubital Right Blood Culture - Preliminary No growth in 48 hours. 12/10/23 20:50 Blood Culture (Wb) - Anticubital Left Blood Culture - Preliminary No growth in 48 hours. 12/10/23 20:50 Urine Catheter - Landry Urine Culture - Final Culture exhibits no growth. 12/10/23 20:50 Mucosa - Nose SARS-CoV-2, Influenza & RSV (PCR) - Final ABG Data ABG results: ABG 12/13/23 12/13/23 09:36 12:07 Specimen Type ART ART Sample Site L Brach L Radial pH 7.20 L 7.30 L Bicarbonate Actual 24.8 24.9 Total CO2 27 26 Base Excess -3 L -2 O2 Saturation 91 L 94 L O2 % 95.0 95.0 ABG pCO2 64.1 H 50.8 H ABG pO2 75 79 Yong Test Positive Respiration Rate 14 22 O2 Delivery Device Adult Vent Adult Vent Vent Mode AC AC Tidal Volume 500.0 500.0 POC PEEP 10 10 Crit Call To/Read Back Yes Blood Gas Notified Whom anaud Blood Gas Notified Time 09:38:26 Radiography Diagnostic Testing: Radiology Impression Chest X-Ray 12/13/23 05:55 IMPRESSION: 1. Pulmonary vascular congestion and interstitial edema. 2. Left basilar atelectasis versus infiltrate and small left pleural effusion. 3. Right upper extremity PICC line with the tip overlying the right atrium. Electronically Signed: Terrance Green DO at 4:38 EDT , Chest X-Ray 12/13/23 10:55 IMPRESSION: Essentially stable examination. Left-sided internal jugular venous catheter has been placed with the tip at the junction of the superior vena cava and right atrium. Electronically Signed: Sumit Mcknight MD at 11:19 EDT , Physical Exam Narrative intubated pallor s1s2 b/l air entry abdomen soft ++ edema no cyanosis Assessment & Plan Assessment/Plan (1) SIGRID (acute kidney injury): PLAN: Normal baseline. CT abd without hydro. Rhabdomyolysis. mild hyperkalemia due to SIGRID urine tox positive for multiple drugs aspiration pneumonia suspected Anuria. volume overload needs BUSINESS QUALITY ASSURANCE ANALYST. dw family. agreeable dialysis catheter placed bedside attempt HD since he is off pressors if not successful will start CRRT dw staff (2) Acute hypercapnic respiratory failure: (3) Septic shock:
--- NOTE | 2023-12-13 13:33 | PCM.OP.PRO ---
Procedure Report Date of Procedure: 12/13/23 Left IJ dialysis catheter placement RIJ was previously attempted in ER, wire could not be advanced. on US exam RIJ looks small Left IJ is fairly wide and compressible. INR 2.3. Platelets on lower side Under aseptic precautions, site was prepped. drape applied. IJ confirmed under US. local anesthesia with lidocaine obtained. LIJ cannulated under US guidance on first attempt. able to advance wire without any resistance. Wire confirmed in IJ under US. needle withdrawn and serial dilators used to dilate the tract. 20 cm, 2 lumen, 12 F dialysis catheter advanced. both ports flushed and draws easily. sutures applied. sterile dressing applied. Post procedure X Ray confirmed to be in good position HD today with fluid removal. Bp is borderline. if Bp does not tolerate will plan for CRRT
[2023-12-13] MEDS: Heparin 10,000 UNITS/10 ML Vial IV (15:24)
[2023-12-13 17:36] LABS: Bedside Glucose 135 mg/dL (74-106)
[2023-12-13 18:00] LABS: Base Excess -1 mmol/L (-2 to +2); Bicarbonate 24.4 mmol/L (22-26); Blood Gas Specimen Type ART; Mode AC; O2 Delivery Device Adult Vent; PEEP 10; PO2 73 mmHG (75-100); RR 22; SITE L Radial; SO2 93 % (95-99); Total Carbon Dioxide 26 mmol/L; pCO2 45.4 mmHg (35-45); pH 7.34 (7.35-7.45)
[2023-12-13] MEDS: fentaNYL drip 100 ML 5 MCG CONT INF (23:02)
[2023-12-13 23:52] LABS: Bedside Glucose 171 mg/dL (74-106)
[2023-12-14] VITALS (55 sets, daily range): BP systolic 82–259; BP diastolic 57–76; PULSE 99–116; RESP 17–23; TEMP 36.8–38.4; O2SAT 91–95; BMI 29.0
[2023-12-14] MEDS: Norepinephrine 8 MG in 0.9% Normal Saline (250mL Bag) 242 ML 18.8 MG CONT INF (01:36)
[2023-12-14] MEDS: Ipratropium/Albuterol Sulfate 3 ML AMPUL.NEB INHALATION ×6 (03:23→22:06)
[2023-12-14 04:57] LABS: Base Excess -1 mmol/L (-2 to +2); Bicarbonate 24.8 mmol/L (22-26); Blood Gas Specimen Type ART; Mode AC; O2 Delivery Device Adult Vent; PEEP 8; PO2 73 mmHG (75-100); RR 22; SITE L Radial; SO2 94 % (95-99); Total Carbon Dioxide 26 mmol/L; pH 7.36 (7.35-7.45)
[2023-12-14] MEDS: Hydrocortisone Sod Succinate 100 MG/2 ML Vial 50 MG IV ×3 (04:58→17:19)
[2023-12-14] MEDS: Lactulose 20 GM/30 ML UDC PO ×3 (04:58→20:47)
[2023-12-14] MEDS: Insulin Lispro 100 UNIT/ML INSULN.PEN SC ×2 (04:58→17:20)
[2023-12-14 05:02] LABS: Hematocrit 39.4 % (40-54); Hemoglobin 13.2 g/dL (13.0-16.5); Mean Corp Hgb Conc 33.5 g/dL (32-36); Mean Corpuscular Hgb 31.5 pg (27.0-32.0); Mean Platelet Vol. 11.8 fl (6.2-12.0); POSITIVE COUNT YES; Platelet Count 51 K/mm3 (150-450); RBC Distribution Width CV 14.8 % (11.6-14.6); RBC Distribution Width SD 50.2 fl (35.1-43.9); Red Blood Count 4.19 M/mm3 (4.6-6.2); White Blood Count 16.6 K/mm3 (4.4-11.0)
[2023-12-14 05:09] LABS: Scan Indicated on CBC? Y/N NO
[2023-12-14 05:10] LABS: International Normalized Ratio 2.5; Prothrombin Time (Protime)PT. 26.7 SECONDS (11.7-14.9)
[2023-12-14 05:12] LABS: Bedside Glucose 190 mg/dL (74-106)
[2023-12-14 05:18] LABS: AST(SGOT) 293 U/L (15-37); Alanine Aminotransfer ALT/SGPT 772 U/L (16-61); Albumin, Serum 2.5 g/dL (3.2-5.0); Alkaline Phosphatase 73 U/L (45-117); Anion Gap 10 (5-15); BUN 84 mg/dL (7-18); BUN/Creat Ratio 17.1 RATIO (10-20); Bilirubin, Direct 5.44 mg/dL (0.00-0.30); Chloride 97 mmol/L (98-107); EST Glomerular Filtration Rate 13 mL/min (>60); Est Glom Filt Rate - Afr Amer 16 mL/min (>60); Estimated Creatinine Clearance 18.94 ml/min; Globulin 2.8 g/dL (2.2-4.2); Glucose 207 mg/dL (74-106); Potassium 4.7 mmol/L (3.5-5.1); Protein, Total 5.3 g/dL (6.4-8.2); Sodium Level 131 mmol/L (136-145)
--- NOTE | 2023-12-14 05:55 | RAD_ITS ---
INDICATION: resp failure vent EXAMINATION/TECHNIQUE: X-RAY - XR Chest 1 View COMPARISON: 12/13/2023. FINDINGS: LINES/DEVICES: Endotracheal tube, enteric tube, left IJ central venous catheter and right upper extremity PICC line are stable. LUNGS: Right basilar atelectasis versus infiltrate. Left mid and lower lung atelectasis versus infiltrates. Probable small bilateral pleural effusions. No evidence of a pneumothorax. MEDIASTINUM AND CARDIOVASCULAR STRUCTURES: Cardiac silhouette is normal in size and contour. Mediastinum is unremarkable. BONES AND SOFT TISSUES: No acute abnormality. RAD/Chest 1 View (Portable) IMPRESSION: 1. Right basilar and left mid and lower lung atelectasis versus infiltrates. 2. Probable small bilateral pleural effusions. Electronically Signed: Terrance Green DO at 7:17 EDT ,
--- NOTE | 2023-12-14 07:08 | PN.HOSP_ITS ---
Reason for Visit Reason for Visit: Diagnoses Sepsis, unspecified organism (12/10/23) Other psychoactive substance abuse, uncomplicated (12/10/23) Acute respiratory failure with hypercapnia (12/10/23) Acute kidney failure, unspecified (12/10/23) Severe sepsis with septic shock (12/10/23) Unspecified foreign body in respiratory tract, part unspecified causing other injury, initial encounter (12/10/23) Subjective Subjective Patient seen remains on the vent. Heart failure session of dialysis the day prior. His transaminases improving. His FiO2 requirement down to 50% Objective Data Objective Data Vital Signs: Vital Signs Temp Pulse Resp BP Pulse Ox O2 Del Method O2 Flow Rate 100.5 F H 114 H 22 H 104/66 92 Mechanical Ventilator 95 12/14/23 05:00 12/14/23 07:00 12/14/23 07:00 12/14/23 07:00 12/14/23 07:00 12/14/23 07:00 12/13/23 12:05 FiO2 50 12/14/23 07:00 Oxygen Flow Rate (L/min) 95 Oxygen Delivery Method Mechanical Ventilator Weight: 91.8 kg Body Mass Index (BMI) 29.0 Intake & Output: Intake and Output for Last 24 Hours 12/12/23 12/13/23 12/14/23 23:59 23:59 23:59 Intake Total 3851.64 / 3973.14 1523.77 / 1607.40 332.03 / 332.03 Output Total 375 / 375 2540 / 2540 110 / 110 Balance 3476.64 / 3598.14 -1016.23 / -932.60 222.03 / 222.03 Lab / Micro Data 12/14/23 04:50 12/14/23 04:50 Labs: Laboratory Results - last 24 hr 12/13/23 11:01: POC Glucose 170 H 12/13/23 17:17: POC Glucose 135 H 12/13/23 23:30: POC Glucose 171 H 12/14/23 04:50: WBC 16.6 H, RBC 4.19 L, Hgb 13.2, Hct 39.4 L, MCV 94.0 D, MCH 31.5, MCHC 33.5 D, RDW Std Deviation 50.2 H, RDW Coeff of Elaine 14.8 H, Plt Count 51 L, MPV 11.8, PT 26.7 H, INR 2.5, Sodium 131 L, Potassium 4.7, Chloride 97 L, Carbon Dioxide 24.0, Anion Gap 10, BUN 84 H, Creatinine 4.90 H, Estim Creat Clear Calc 18.94, Est GFR (MDRD) Af Amer 16 L, Est GFR (MDRD) Non-Af 13 L, BUN/Creatinine Ratio 17.1, Glucose 207 H, Calcium 7.0 L, Total Bilirubin 7.50 H, Direct Bilirubin 5.44 H, AST 293 H, ALT 772 H, Alkaline Phosphatase 73, Total Protein 5.3 L, Albumin 2.5 L, Globulin 2.8 12/14/23 04:51: POC Glucose 190 H Micro: Microbiology 12/10/23 Unknown Sputum, Induced/Lukens Gram Stain - Final 12/10/23 Unknown Sputum, Induced/Lukens Respiratory Culture - Final Staphylococcus aureus Haemophilus influenzae 12/10/23 20:50 Blood Culture (Wb) - Anticubital Right Blood Culture - Preliminary No growth in 48 hours. 12/10/23 20:50 Blood Culture (Wb) - Anticubital Left Blood Culture - Preliminary No growth in 48 hours. 12/10/23 20:50 Urine Catheter - Landry Urine Culture - Final Culture exhibits no growth. 12/10/23 20:50 Mucosa - Nose SARS-CoV-2, Influenza & RSV (PCR) - Final ABG Data ABG results: ABG 12/13/23 12/13/23 12/13/23 09:36 12:07 17:56 Specimen Type ART ART ART Sample Site L Brach L Radial L Radial pH 7.20 L 7.30 L 7.34 L Bicarbonate Actual 24.8 24.9 24.4 Total CO2 27 26 26 Base Excess -3 L -2 -1 O2 Saturation 91 L 94 L 93 L O2 % 95.0 95.0 65.0 ABG pCO2 64.1 H 50.8 H 45.4 H ABG pO2 75 79 73 L Yong Test Positive Respiration Rate 14 22 22 O2 Delivery Device Adult Vent Adult Vent Adult Vent Vent Mode AC AC AC Tidal Volume 500.0 500.0 500.0 POC PEEP 10 10 10 Crit Call To/Read Back Yes Blood Gas Notified Whom anaud Blood Gas Notified Time 09:38:26 12/14/23 04:54 Specimen Type ART Sample Site L Radial pH 7.36 Bicarbonate Actual 24.8 Total CO2 26 Base Excess -1 O2 Saturation 94 L O2 % 50.0 ABG pCO2 44.0 ABG pO2 73 L Yong Test N/A Respiration Rate 22 O2 Delivery Device Adult Vent Vent Mode AC Tidal Volume 500.0 POC PEEP 8 Crit Call To/Read Back Blood Gas Notified Whom Blood Gas Notified Time Radiography Diagnostic Testing: Radiology Impression Chest X-Ray 12/13/23 10:55 IMPRESSION: Essentially stable examination. Left-sided internal jugular venous catheter has been placed with the tip at the junction of the superior vena cava and right atrium. Electronically Signed: Sumit Mcknight MD at 11:19 EDT , Physical Exam Narrative GENERAL: Sedated on the vent HEENT: Atraumatic; normocephalic EYES; Anicteric, Normal Conjunctiva NECK; supple, normal thyroid, RESPIRATORY: Diminished to auscultation CARDIOVASCULAR: Regular S1 S2, GI: soft, normoactive bowel sounds, : No Renal angle tenderness; EXTREMITIES: Cyanosis of extremities, MUSCULOSKELETAL: no muscle wasting NEURO: Sedated on the vent SKIN: plantar warts on the left heel Const General Appearance: intubated and patient mechanically ventilated HEENT normocephalic Eyes PERRL and conjunctivae normal Neck supple and no JVD Resp normal respiratory effort, no retractions and no use of accessory muscles Auscultation: rhonchi and wheezes; Negative for crackles or rales Cardio regular rate, regular rhythm, S1 normal heart sound, S2 normal heart sound and no murmurs GI soft to palpation and non-distended; Negative for hepatosplenomegaly Extremity no clubbing, cyanosis or edema Skin Skin Narrative: Purplish discoloration to bilateral kneecaps Neuro Sensorium / Orientation: sedated on vent Psych Appearance: intubated Assessment & Plan Assessment/Plan (1) Septic shock: PLAN: Plan Patient is a 58-year-old gentleman with history of polysubstance dependence who was found unresponsive. EMS was called patient was brought to the emergency department patient was intubated. He was reported to have aspirated during the intubation. He later became hypotensive and assessment of septic shock was made patient started on pressors admitted to the intensive care unit for further management 1. Septic shock ? Secondary to suspected aspiration pneumonia. Patient admitted to the intensive care unit resuscitated with IV fluid per protocol also started on broad-spectrum antibiotic therapy response to therapy being monitored with serial lactic acid levels ? 12/12/2023; patient remains on broad-spectrum antibiotic therapy. Patient Levophed has been weaned off ? 12/14/2023 sputum cultures grew methicillin sensitive Staph aureus as well as haemophilus influenza. De-escalated antibiotic therapy with discontinuation of vancomycin 2. Acute hypoxic and hypercapnic respiratory failure -patient was intubated in the emergency department. Admitted to the intensive care unit subsequent vent management deferred to critical care ? 12/12/2023; patient remains intubated Vent management deferred to pulmona ry/critical care ? 12/13/2023 checks x-ray obtained this a.m. did show Pulmonary vascular congestion and interstitial edema as well as left base basilar atelectasis versus infiltrate and small left pleural effusion. Patient oxygen demand going on currently on 100% FiO2 with a PEEP of 10. ? 12/14/2023; FiO2 down to 50%. Subsequent vent management deferred to intensive care 3. COPD exacerbation ? Complicating care management as discussed above in addition to systemic steroids 4. Acute renal failure ? Patient baseline creatinine documented from 09/05/2020 was 0.59 creatinine admission was 2.98 patient is on fluids with monitoring of electrolyte ? 12/12/2023 patient kidney function continues to worsen consult was placed to nephrology. ? 12/13/2023; patient kidney function continues to worsen patient may be a candidate for renal replacement therapy. ? 12/14/2023; patient had hemodialysis the day prior scheduled to undergo repeat hemodialysis 5. Acute hepatic failure ? Patient found to have markedly transaminases (pattern consistent with alcohol use) and INR did receive vitamin K. Consult was placed to GI there was a recommendation to start N-acetylcysteine will defer to patient is evaluated by gastroenterology ? 12/12/2023; patient was seen in consultation by GI. INR remains eleva te,patient is bleeding from various sites additional vitamin K given ? 12/13/2023 INR down to 2.4. 12/14/2023; patient transaminases improving. 6. Hypokalemia ? Potassium on admission was 5.3 down to 5.1 7. Hypoglycemia ? Attributed to patient liver failure 8. Polysubstance abuse ? Patient urine drug screen was positive for cannabis benzos MDMA and meth 9. DVT prophylaxis ? Has elevated INR no further treatment warranted Critical Time spent in the patient's overall evaluation,decision-making process, review of diagnostic data, adjustment of management, discussion with other providers, nursing nursing and ancillary staff involved in patient's care documentation, 52 Minutes Charges/Coding Visit Charges Inpatient E&M: 53833 Subs Hosp L3
[2023-12-14] MEDS: 0.9% Normal Saline 1,000 ML IV.SOLN. 1000 ML OPERA.SITE (07:45)
[2023-12-14] MEDS: PureFlow B 2K Dialysis Soln 1 BAG 6 BAG PF (07:46)
[2023-12-14] MEDS: 0.9% Saline Lock 10 ML Syringe IV ×3 (07:46→11:09)
--- NOTE | 2023-12-14 08:37 | PCM.PN.TICU ---
Objective Data Objective Data Vital Signs: Vital Signs Last response Temperature 37.7 C H 12/14/23 08:00 Temperature Source Temporal 12/14/23 08:00 Pulse Rate 106 H 12/14/23 08:30 Pulse Strength Doppler 12/13/23 08:43 Respiratory Rate 22 H 12/14/23 08:30 Respiratory Effort Mechanically Ventilated 12/14/23 07:30 Respiratory Depth Normal 12/14/23 04:00 Respiratory Pattern Tachypnea 12/14/23 06:56 Blood Pressure 97/65 12/14/23 08:30 Blood Pressure Mean 75 12/14/23 08:30 Blood Pressure Source Monitor 12/14/23 08:30 Blood Pressure Position Semi-Fowlers 12/14/23 08:30 Blood Pressure Location Left Arm 12/14/23 08:30 Pulse Ox 93 12/14/23 08:30 Oxygen Delivery Method Mechanical Ventilator 12/14/23 08:30 Oxygen Flow Rate (L/min) 95 12/13/23 12:05 Fraction of Inspired Oxygen (FIO2) 50 12/14/23 08:30 I&O: I&O Last 24 Hours 12/13/23 12/13/23 12/14/23 11:59 23:59 11:59 Intake Total 920.78 / 1607.40 602.99 / 1607.40 337.03 / 337.03 Output Total 20 / 2540 2520 / 2540 110 / 110 Balance 900.78 / -932.60 -1917.01 / -932.60 227.03 / 227.03 I&O: Total Stay 12/10/23 20:39 thru 12/14/23 08:00 Intake Total 34165.92 Output Total 4240 Balance 80614.92 Current Meds Ordered / Administered: Current meds ordered / Administered Generic Name Dose Route Start Last Admin Trade Name Freq PRN Reason Stop Dose Admin Albuterol/Ipratropium 3 ml 12/11/23 06:00 12/14/23 06:56 Ipratropium/Albuterol Sulfate 3 Ml Ampul.Neb INHALATION 3 ml Q4H.RT FANY Administration Chlorhexidine Gluconate 15 ml 12/11/23 10:00 12/13/23 21:05 Chlorhexidine 15 Ml PO 15 ml BID FANY Administration Chlorhexidine Gluconate 1 each 12/12/23 10:00 12/13/23 09:31 Chlorhexidine Gluc 2% Cloth 1 Each Towelette TOPICAL 1 each DAILY FANY Administration Fentanyl Citrate 50 mcg 12/11/23 04:41 Fentanyl 100 Mcg/2 Ml Ampul IV Q2H PRN PRN Pain >/= 4/10 or CPOT>/= 3/8 Hemodialysis Solution 6 bag 12/14/23 06:45 12/14/23 07:46 Pureflow B 2k Dialysis Soln 1 Bag PF 12/14/23 18:45 5 bag UD FANY Administration Protocol Heparin Sodium (Porcine) 2,500 units 12/13/23 10:16 12/13/23 10:41 Heparin 10,000 Units/10 Ml Vial IV 2,500 units UD PRN Administration Dialysis Cath Heparin Flush Heparin Sodium (Porcine) 1,000 - 3,000 units 12/14/23 06:45 Heparin 10,000 Units/10 Ml Vial IV 12/14/23 18:45 X1 PRN HD catheter closing Hydrocortisone Sodium Succinate 50 mg 12/11/23 06:00 12/14/23 04:58 Hydrocortisone Sod Succinate 100 Mg/2 Ml Vial IV 50 mg Q6 FANY Administration Fentanyl 100 mls @ 2.5 mls/hr 12/10/23 21:55 12/14/23 08:00 CONT INF 50 mcg/hr UD FANY 5 mls/hr Titration Protocol 25 MCG/HR Folic Acid 1 mg/ Sodium 50.2 mls @ 200 mls/hr 12/11/23 10:00 12/13/23 10:19 Chloride IV Infused DAILY FANY Infusion Thiamine HCl 100 mg/ Sodium 51 mls @ 200 mls/hr 12/11/23 10:00 12/13/23 10:38 Chloride IV Infused DAILY FANY Infusion Sodium Chloride 250 mls @ 15 mls/hr 12/11/23 01:50 IV .[id number] PRN Additional IVPB Infusion Sodium Chloride 250 mls @ 15 mls/hr 12/11/23 01:50 12/13/23 05:52 IV Infused .[id number] PRN Infusion Saline Flush Norepinephrine Bitartrate 8 mg 250 mls @ 9.375 mls/hr 12/12/23 04:35 12/14/23 08:00 / Sodium Chloride CONT INF 0 mcg/min .[id number] FANY 0 mls/hr Titration Protocol 5 MCG/MIN Pantoprazole Sodium 40 mg/ 110 mls @ 330 mls/hr 12/12/23 10:00 12/13/23 20:36 Sodium Chloride IV Infused Q12 FANY Infusion Enteral Nutritional Formula 1,000 mls @ 10 mls/hr 12/12/23 10:05 12/13/23 17:48 Vital Af 1.2 Nicholas Liquid GT 10 mls/hr .Q48H FANY Infusion Piperacillin Sod/Tazobactam 50 mls @ 12.5 mls/hr 12/13/23 22:00 12/14/23 01:05 Sod 3.375 gm/ Sodium Chloride IV Infused Q12 FANY Infusion Insulin Human Lispro 0 unit 12/12/23 00:00 12/14/23 04:58 Insulin Lispro 100 Unit/Ml Insuln.Pen SC 2 u Q6 FANY Administration Protocol Lactulose 20 gm 12/13/23 09:10 12/14/23 04:58 Lactulose 20 Gm/30 Ml Udc PO 20 gm TID FANY Administration Midazolam HCl 2 mg 12/11/23 04:41 Midazolam 2 Mg/2 Ml Syringe IV Q2H PRN PRN sedation Senna/Docusate Sodium 2 tablet 12/12/23 10:00 12/13/23 20:16 Senna/Docusate Sodium 1 Tablet GT 2 tablet BID FANY Administration Sodium Chloride 10 - 40 ml 12/11/23 01:50 12/14/23 07:46 0.9% Saline Lock 10 Ml Syringe IV 40 ml UD PRN Administration SALINE FLUSH Sodium Chloride 10 ml 12/13/23 10:16 0.9% Saline Lock 10 Ml Syringe IV UD PRN Dialysis Catheter Flush Sodium Chloride 1,000 ml 12/14/23 06:45 12/14/23 07:45 0.9% Normal Saline 1,000 Ml Iv.Soln. OPERA.SITE 12/14/23 18:45 1,000 ml X1 FANY Administration Sodium Chloride 200 ml 12/14/23 06:45 0.9% Normal Saline 1,000 Ml Iv.Soln. IV 12/14/23 18:45 X1 PRN to maintain SBP >90mmHg during Dialysis Lab / Micro Data 12/14/23 04:50 12/14/23 04:50 Labs: Laboratory Results - last 24 hr 12/13/23 11:01: POC Glucose 170 H 12/13/23 17:17: POC Glucose 135 H 12/13/23 23:30: POC Glucose 171 H 12/14/23 04:50: WBC 16.6 H, RBC 4.19 L, Hgb 13.2, Hct 39.4 L, MCV 94.0 D, MCH 31.5, MCHC 33.5 D, RDW Std Deviation 50.2 H, RDW Coeff of Elaine 14.8 H, Plt Count 51 L, MPV 11.8, PT 26.7 H, INR 2.5, Sodium 131 L, Potassium 4.7, Chloride 97 L, Carbon Dioxide 24.0, Anion Gap 10, BUN 84 H, Creatinine 4.90 H, Estim Creat Clear Calc 18.94, Est GFR (MDRD) Af Amer 16 L, Est GFR (MDRD) Non-Af 13 L, BUN/Creatinine Ratio 17.1, Glucose 207 H, Calcium 7.0 L, Total Bilirubin 7.50 H, Direct Bilirubin 5.44 H, AST 293 H, ALT 772 H, Alkaline Phosphatase 73, Total Protein 5.3 L, Albumin 2.5 L, Globulin 2.8 12/14/23 04:51: POC Glucose 190 H Micro: Microbiology 12/10/23 Unknown Sputum, Induced/Lukens Gram Stain - Final 12/10/23 Unknown Sputum, Induced/Lukens Respiratory Culture - Final Staphylococcus aureus Haemophilus influenzae 12/10/23 20:50 Blood Culture (Wb) - Anticubital Right Blood Culture - Preliminary No growth in 48 hours. 12/10/23 20:50 Blood Culture (Wb) - Anticubital Left Blood Culture - Preliminary No growth in 48 hours. ABG Data ABG results: ABG 12/13/23 12/13/23 12/13/23 09:36 12:07 17:56 Specimen Type ART ART ART Sample Site L Brach L Radial L Radial pH 7.20 L 7.30 L 7.34 L Bicarbonate Actual 24.8 24.9 24.4 Total CO2 27 26 26 Base Excess -3 L -2 -1 O2 Saturation 91 L 94 L 93 L O2 % 95.0 95.0 65.0 ABG pCO2 64.1 H 50.8 H 45.4 H ABG pO2 75 79 73 L Yong Test Positive Respiration Rate 14 22 22 O2 Delivery Device Adult Vent Adult Vent Adult Vent Vent Mode AC AC AC Tidal Volume 500.0 500.0 500.0 POC PEEP 10 10 10 Crit Call To/Read Back Yes Blood Gas Notified Whom anaud Blood Gas Notified Time 09:38:26 12/14/23 04:54 Specimen Type ART Sample Site L Radial pH 7.36 Bicarbonate Actual 24.8 Total CO2 26 Base Excess -1 O2 Saturation 94 L O2 % 50.0 ABG pCO2 44.0 ABG pO2 73 L Yong Test N/A Respiration Rate 22 O2 Delivery Device Adult Vent Vent Mode AC Tidal Volume 500.0 POC PEEP 8 Crit Call To/Read Back Blood Gas Notified Whom Blood Gas Notified Time Imaging Radiology Impression Chest X-Ray 12/13/23 10:55 IMPRESSION: Essentially stable examination. Left-sided internal jugular venous catheter has been placed with the tip at the junction of the superior vena cava and right atrium. Electronically Signed: Sumit Mcknight MD at 11:19 EDT , Chest X-Ray 12/14/23 05:55 IMPRESSION: 1. Right basilar and left mid and lower lung atelectasis versus infiltrates. 2. Probable small bilateral pleural effusions. Electronically Signed: Terrance Green DO at 7:17 EDT , Assessment and Plan . Assessment and plan: Subjective: No acute events o/n. Remains on high vent support. Off pressors now Physical Exam: Gen - NAD, intubated HEENT - MMM. ETT in place Resp - Diminished BS. Mechanically ventilated CV - RRR. No m/g/r Abd - Soft, NT, +distension Ext - No c/c. ++edema Skin - No rashes Neuro - Sedated, intubated. Minimally responsive on low amount of sedation I have reviewed the pertinent vital sign, laboratory, and imaging data. ASSESSMENT: # Acute hypoxic respiratory failure # Septic shock # Pneumonia - ?cavitary LL lesion vs bleb # COPD exacerbation # SIGRID # Acute encephalopathy # Thrombocytopenia # Lactic acidosis # Acute liver failure/transaminitis # UDS positive for ecstasy, amphetamine, benzo, MJ # Coagulopathy PLAN: -Adjusted vent to VC 500/18/8/50%. Follow ABG/CXR -Wean sedation as tolerated (only on low dose fentanyl currently), follow mental status. Adde lactulose -Nephrology following. Receiving additional HD today -Cont abx, sputum Cx with MSSA and H flu. Repeat cultures. May need to broaden abx further/additional imaging if recurrent fever -LE dopplers reportedly neg for DVT but awaiting formal results -Trend lactate -Follow CBC, coags. Monitor for bleeding. Had some prior coffee grounds and line oozing reported, currently resolved -Monitor LFTs -SSI FEN/GI: TF Proph DVT/GI: SCDs, protonix Critical Care Time: 50 mins The entirety of this encounter was completed via telemedicine
[2023-12-14] MEDS: Heparin 10,000 UNITS/10 ML Vial 2500 UNITS IV (10:33)
[2023-12-14] MEDS: Chlorhexidine 15 ML PO ×2 (10:58→20:44)
[2023-12-14] MEDS: Thiamine Hydrochloride 100 MG in 0.9% Normal Saline (50mL Bag) 50 ML 200 MG IV (10:58)
[2023-12-14] MEDS: Senna/Docusate Sodium 1 Tablet 2 TABLET GT ×2 (10:58→20:47)
[2023-12-14] MEDS: Pantoprazole Sodium 40 MG in 0.9% Normal Saline (100mL MB+) 100 ML 330 MG IV ×2 (11:12→20:44)
[2023-12-14] MEDS: Folic Acid 1 MG in 0.9% Normal Saline (50mL Bag) 50 ML 200 MG IV (11:12)
[2023-12-14 11:40] LABS: Bedside Glucose 138 mg/dL (74-106)
[2023-12-14] MEDS: Vital AF 1.2 Cal Liquid 1,000 ML 10 ML GT (11:43)
[2023-12-14] MEDS: Piperacil/Tazobactam 3.375 GM in 0.9% Normal Saline (50mL MB+) 50 ML IV ×2 (11:43→20:58)
[2023-12-14 15:42] LABS: Allen Test Positive; Base Excess -2 mmol/L (-2 to +2); Bicarbonate 23.9 mmol/L (22-26); Blood Gas Specimen Type ART; Mode AC; O2 Delivery Device Adult Vent; PEEP 8; PO2 85 mmHG (75-100); RR 18; SITE R Radial; SO2 96 % (95-99); Total Carbon Dioxide 25 mmol/L; pCO2 43.8 mmHg (35-45); pH 7.34 (7.35-7.45)
--- NOTE | 2023-12-14 16:35 | RAD_ITS ---
STUDY: X-RAY - ABDOMEN/PELVIS REASON FOR EXAM: Male, 58 years old. Constipation, firm abdomen TECHNIQUE: Single AP view of the abdomen / pelvis. COMPARISON: None. FINDINGS: Nasogastric tube with the tip in the left upper quadrant, likely in the body the stomach. Suspect rectal tube. There is an unremarkable bowel gas pattern. The visualized liver, spleen and kidneys are grossly normal in size and morphology. Normal soft tissue structures. Normal visualized osseous structures. RAD/Abdomen Single View (Portable) IMPRESSION: 1. Nasogastric tube with the tip left upper quadrant, likely in the body the stomach. 2. Suspect rectal tube. 3. No bowel obstruction. Electronically Signed: Contreras Valencia MD at 17:05 EDT ,
[2023-12-14 17:43] LABS: Bedside Glucose 190 mg/dL (74-106)
--- NOTE | 2023-12-14 19:29 | PN.RENAL_ITS ---
Subjective Subjective Follow-up on acute kidney injury -Currently off pressors -Had hemodialysis earlier today -FiO2 down to 50% Objective Data Objective Data Vital Signs: Vital Signs Temp Pulse Resp BP Pulse Ox O2 Del Method O2 Flow Rate 98.3 F 103 H 18 101/64 93 Mechanical Ventilator 95 12/14/23 18:06 12/14/23 18:06 12/14/23 18:06 12/14/23 18:06 12/14/23 18:06 12/14/23 18:06 12/13/23 12:05 FiO2 50 12/14/23 18:06 Oxygen Flow Rate (L/min) 95 Oxygen Delivery Method Mechanical Ventilator Weight: 91.8 kg Body Mass Index (BMI) 29.0 Intake & Output: Intake and Output for Last 24 Hours 12/12/23 12/13/23 12/14/23 23:59 23:59 23:59 Intake Total 3851.64 / 3973.14 1523.77 / 1607.40 993.65 / 993.65 Output Total 375 / 375 2540 / 2540 2870 / 2870 Balance 3476.64 / 3598.14 -1016.23 / -932.60 -1876.35 / -1876.35 Lab / Micro Data 12/14/23 04:50 12/14/23 04:50 Labs: Laboratory Results - last 24 hr 12/13/23 23:30: POC Glucose 171 H 12/14/23 04:50: WBC 16.6 H, RBC 4.19 L, Hgb 13.2, Hct 39.4 L, MCV 94.0 D, MCH 31.5, MCHC 33.5 D, RDW Std Deviation 50.2 H, RDW Coeff of Elaine 14.8 H, Plt Count 51 L, MPV 11.8, PT 26.7 H, INR 2.5, Sodium 131 L, Potassium 4.7, Chloride 97 L, Carbon Dioxide 24.0, Anion Gap 10, BUN 84 H, Creatinine 4.90 H, Estim Creat Clear Calc 18.94, Est GFR (MDRD) Af Amer 16 L, Est GFR (MDRD) Non-Af 13 L, BUN/C reatinine Ratio 17.1, Glucose 207 H, Calcium 7.0 L, Total Bilirubin 7.50 H, Direct Bilirubin 5.44 H, AST 293 H, ALT 772 H, Alkaline Phosphatase 73, Total Protein 5.3 L, Albumin 2.5 L, Globulin 2.8 12/14/23 04:51: POC Glucose 190 H 12/14/23 11:08: POC Glucose 138 H 12/14/23 17:18: POC Glucose 190 H Micro: Microbiology 12/14/23 09:02 Sputum, Induced/Lukens Gram Stain - Final 12/10/23 Unknown Sputum, Induced/Lukens Gram Stain - Final 12/10/23 Unknown Sputum, Induced/Lukens Respiratory Culture - Final Staphylococcus aureus Haemophilus influenzae 12/10/23 20:50 Blood Culture (Wb) - Anticubital Right Blood Culture - Preliminary No growth in 48 hours. 12/10/23 20:50 Blood Culture (Wb) - Anticubital Left Blood Culture - Preliminary No growth in 48 hours. 12/10/23 20:50 Urine Catheter - Landry Urine Culture - Final Culture exhibits no growth. 12/10/23 20:50 Mucosa - Nose SARS-CoV-2, Influenza & RSV (PCR) - Final ABG Data ABG results: ABG 12/14/23 12/14/23 04:54 15:38 Specimen Type ART ART Sample Site L Radial R Radial pH 7.36 7.34 L Bicarbonate Actual 24.8 23.9 Total CO2 26 25 Base Excess -1 -2 O2 Saturation 94 L 96 O2 % 50.0 50.0 ABG pCO2 44.0 43.8 ABG pO2 73 L 85 Yong Test N/A Positive Respiration Rate 22 18 O2 Delivery Device Adult Vent Adult Vent Vent Mode AC AC Tidal Volume 500.0 500.0 POC PEEP 8 8 Radiography Diagnostic Testing: Radiology Impression Chest X-Ray 12/14/23 05:55 IMPRESSION: 1. Right basilar and left mid and lower lung atelectasis versus infiltrates. 2. Probable small bilateral pleural effusions. Electronically Signed: Terrance Green DO at 7:17 EDT , KUB X-Ray 12/14/23 16:35 IMPRESSION: 1. Nasogastric tube with the tip left upper quadrant, likely in the body the stomach. 2. Suspect rectal tube. 3. No bowel obstruction. Electronically Signed: Contreras Valencia MD at 17:05 EDT , Physical Exam Narrative Ill-appearing, intubated and only on low-dose fentanyl Breath sounds are diminished S1-S2 regular Abdomen is distended Positive for scrotal edema Still significant lower extremity edema Left IJ Vas-Cath Assessment & Plan Assessment/Plan (1) SIGRID (acute kidney injury): PLAN: Normal baseline. CT abd without hydro. Rhabdomyolysis. mild hyperkalemia due to SIGRID urine tox positive for multiple drugs aspiration pneumonia suspected Anuria. volume overload Intermittent hemodialysis initiated on 12/12 12/13 -Had 2 sessions of HD -Solute clearance is improved, still volume overloaded -Plan on hemodialysis again tomorrow -Remains oliguric Thank you please call [phone] with any concerns (2) Acute hypercapnic respiratory failure: (3) Septic shock:
[2023-12-15] VITALS (48 sets, daily range): BP systolic 88–250; BP diastolic 60–87; PULSE 100–114; RESP 10–21; TEMP 36.4–37.9; O2SAT 90–95; BMI 28.4; BMI 30.2; BMI 29.7
[2023-12-15] MEDS: Hydrocortisone Sod Succinate 100 MG/2 ML Vial 50 MG IV ×5 (00:07→23:05)
[2023-12-15] MEDS: Insulin Lispro 100 UNIT/ML INSULN.PEN SC ×5 (00:07→23:05)
[2023-12-15 00:28] LABS: Bedside Glucose 178 mg/dL (74-106)
[2023-12-15] MEDS: fentaNYL drip 100 ML 5 MCG CONT INF (01:00)
[2023-12-15] MEDS: Ipratropium/Albuterol Sulfate 3 ML AMPUL.NEB INHALATION ×6 (02:17→22:56)
[2023-12-15 03:23] LABS: Hematocrit 36.8 % (40-54); Hemoglobin 12.3 g/dL (13.0-16.5); Mean Corp Hgb Conc 33.4 g/dL (32-36); Mean Corpuscular Hgb 31.6 pg (27.0-32.0); Mean Corpuscular Volume 94.6 fL (80-94); Mean Platelet Vol. 10.3 fl (6.2-12.0); POSITIVE COUNT YES; RBC Distribution Width CV 15.7 % (11.6-14.6); RBC Distribution Width SD 52.7 fl (35.1-43.9); Red Blood Count 3.89 M/mm3 (4.6-6.2); White Blood Count 15.7 K/mm3 (4.4-11.0)
[2023-12-15 03:32] LABS: International Normalized Ratio 2.4; Prothrombin Time (Protime)PT. 25.6 SECONDS (11.7-14.9)
[2023-12-15 03:42] LABS: AST(SGOT) 145 U/L (15-37); Alanine Aminotransfer ALT/SGPT 532 U/L (16-61); Albumin, Serum 2.3 g/dL (3.2-5.0); Alkaline Phosphatase 66 U/L (45-117); Anion Gap 9 (5-15); BUN 81 mg/dL (7-18); BUN/Creat Ratio 16.9 RATIO (10-20); Bilirubin, Direct 5.96 mg/dL (0.00-0.30); Calcium,Total 7.6 mg/dL (8.5-10.1); Chloride 99 mmol/L (98-107); Creatinine, Serum 4.78 mg/dL (0.70-1.30); EST Glomerular Filtration Rate 14 mL/min (>60); Est Glom Filt Rate - Afr Amer 16 mL/min (>60); Estimated Creatinine Clearance 19.42 ml/min; Globulin 2.8 g/dL (2.2-4.2); Glucose 191 mg/dL (74-106); Potassium 4.7 mmol/L (3.5-5.1); Protein, Total 5.1 g/dL (6.4-8.2); Sodium Level 133 mmol/L (136-145)
[2023-12-15 03:52] LABS: Lactic Acid 1.5 mmol/L (0.4-1.9)
[2023-12-15] MEDS: Lactulose 20 GM/30 ML UDC PO ×3 (05:02→20:47)
[2023-12-15] MEDS: 0.9% Saline Lock 10 ML Syringe IV ×3 (05:02→10:53)
[2023-12-15] MEDS: CHLORHEXIDINE GLUC 2% CLOTH 1 EACH TOWELETTE TOPICAL (05:02)
[2023-12-15 05:27] LABS: Bedside Glucose 181 mg/dL (74-106)
--- NOTE | 2023-12-15 05:50 | RAD_ITS ---
STUDY: X-RAY CHEST REASON FOR EXAM: Male, 58 years old. Respiratory failure TECHNIQUE: Frontal view of the chest COMPARISON: 12/14/2023 FINDINGS: The support lines and tubes are unchanged. There are stable bibasilar opacities, left greater than right. There are stable small pleural effusions. There is no pneumothorax. The heart is stable in size. The visualized osseous structures are within normal limits. RAD/Chest 1 View (Portable) IMPRESSION: Stable bibasilar opacities, left greater than right. This may be due to atelectasis or infiltrate. Stable small bilateral pleural effusions. Electronically Signed: Norberto Bess MD at 8:27 EDT ,
--- NOTE | 2023-12-15 07:30 | PN.HOSP_ITS ---
Reason for Visit Reason for Visit: Diagnoses Sepsis, unspecified organism (12/10/23) Other psychoactive substance abuse, uncomplicated (12/10/23) Acute respiratory failure with hypercapnia (12/10/23) Acute kidney failure, unspecified (12/10/23) Severe sepsis with septic shock (12/10/23) Unspecified foreign body in respiratory tract, part unspecified causing other injury, initial encounter (12/10/23) Subjective Subjective Patient seen currently undergoing dialysis. Opens eyes spontaneously but does not follow any purposeful command. FiO2 down to 45. Objective Data Objective Data Vital Signs: Vital Signs Temp Pulse Resp BP Pulse Ox O2 Del Method O2 Flow Rate 97.7 F L 108 H 18 106/67 92 Mechanical Ventilator 95 12/15/23 04:00 12/15/23 07:01 12/15/23 07:01 12/15/23 07:00 12/15/23 07:01 12/15/23 07:01 12/13/23 12:05 FiO2 45 12/15/23 07:01 Oxygen Flow Rate (L/min) 95 Oxygen Delivery Method Mechanical Ventilator Weight: 89.8 kg Body Mass Index (BMI) 28.4 Intake & Output: Intake and Output for Last 24 Hours 12/13/23 12/14/23 12/15/23 23:59 23:59 23:59 Intake Total 1523.77 / 1607.40 1247.40 / 1309.90 205.17 / 205.17 Output Total 2540 / 2540 2935 / 2935 115 / 115 Balance -1016.23 / -932.60 -1687.60 / -1625.10 90.17 / 90.17 Lab / Micro Data 12/15/23 03:10 12/15/23 03:10 Labs: Laboratory Results - last 24 hr 12/14/23 11:08: POC Glucose 138 H 12/14/23 17:18: POC Glucose 190 H 12/15/23 00:06: POC Glucose 178 H 12/15/23 03:10: WBC 15.7 H, RBC 3.89 L, Hgb 12.3 L, Hct 36.8 L, MCV 94.6 H, MCH 31.6, MCHC 33.4, RDW Std Deviation 52.7 H, RDW Coeff of Elaine 15.7 H, Plt Count 42 L*, MPV 10.3, PT 25.6 H, INR 2.4, Sodium 133 L, Potassium 4.7, Chloride 99, Carbon Dioxide 25.0, Anion Gap 9, BUN 81 H, Creatinine 4.78 H, Estim Creat Clear Calc 19.42, Est GFR (MDRD) Af Amer 16 L, Est GFR (MDRD) Non-Af 14 L, BUN/Creatinine Ratio 16.9, Glucose 191 H, Lactic Acid 1.5, Calcium 7.6 L, Total Bilirubin 8.00 H, Direct Bilirubin 5.96 H, AST 145 H, ALT 532 H, Alkaline Phosphatase 66, Total Protein 5.1 L, Albumin 2.3 L, Globulin 2.8 12/15/23 05:00: POC Glucose 181 H Micro: Microbiology 12/14/23 09:02 Sputum, Induced/Lukens Gram Stain - Final 12/10/23 Unknown Sputum, Induced/Lukens Gram Stain - Final 12/10/23 Unknown Sputum, Induced/Lukens Respiratory Culture - Final Staphylococcus aureus Haemophilus influenzae 12/10/23 20:50 Blood Culture (Wb) - Anticubital Right Blood Culture - Preliminary No growth in 48 hours. 12/10/23 20:50 Blood Culture (Wb) - Anticubital Left Blood Culture - Preliminary No growth in 48 hours. 12/10/23 20:50 Urine Catheter - Landry Urine Culture - Final Culture exhibits no growth. 12/10/23 20:50 Mucosa - Nose SARS-CoV-2, Influenza & RSV (PCR) - Final ABG Data ABG results: ABG 12/14/23 15:38 Specimen Type ART Sample Site R Radial pH 7.34 L Bicarbonate Actual 23.9 Total CO2 25 Base Excess -2 O2 Saturation 96 O2 % 50.0 ABG pCO2 43.8 ABG pO2 85 Yong Test Positive Respiration Rate 18 O2 Delivery Device Adult Vent Vent Mode AC Tidal Volume 500.0 POC PEEP 8 Radiography Diagnostic Testing: Radiology Impression KUB X-Ray 12/14/23 16:35 IMPRESSION: 1. Nasogastric tube with the tip left upper quadrant, likely in the body the stomach. 2. Suspect rectal tube. 3. No bowel obstruction. Electronically Signed: Contreras Valencia MD at 17:05 EDT , Physical Exam Narrative GENERAL: Sedated on the vent HEENT: Atraumatic; normocephalic EYES; Anicteric, Normal Conjunctiva NECK; supple, normal thyroid, RESPIRATORY: Diminished to auscultation CARDIOVASCULAR: Regular S1 S2, GI: soft, normoactive bowel sounds, : No Renal angle tenderness; EXTREMITIES: Cyanosis of extremities, edema of both hands and feet MUSCULOSKELETAL: no muscle wasting NEURO: Sedated on the vent SKIN: plantar warts on the left heel Assessment & Plan Assessment/Plan (1) Septic shock: PLAN: Plan Patient is a 58-year-old gentleman with history of polysubstance dependence who was found unresponsive. EMS was called patient was brought to the emergency department patient was intubated. He was reported to have aspirated during the intubation. He later became hypotensive and assessment of septic shock was made patient started on pressors admitted to the intensive care unit for further jaylin tripp 1. Septic shock ? Secondary to suspected aspiration pneumonia. Patient admitted to the in tensive care unit resuscitated with IV fluid per protocol also started on broad- spectrum antibiotic therapy response to therapy being monitored with serial lactic acid levels ? 12/12/2023; patient remains on broad-spectrum antibiotic therapy. Patient Levophed has been weaned off ? 12/14/2023 sputum cultures grew methicillin sensitive Staph aureus as well as haemophilus influenza. De-escalated antibiotic therapy with discontinuation of vancomycin ? 12/15/2023; afebrile for the past 24 hours 2. Acute hypoxic and hypercapnic respiratory failure -patient was intubated in the emergency department. Admitted to the intensive care unit subsequent vent management deferred to critical care ? 12/12/2023; patient remains intubated Vent management deferred to pulmonary/critical care ? 12/13/2023 checks x-ray obtained this a.m. did show Pulmonary vascular congestion and interstitial edema as well as left base basilar atelectasis versus infiltrate and small left pleural effusion. Patient oxygen demand going on currently on 100% FiO2 with a PEEP of 10. ? 12/14/2023; FiO2 down to 50%. Subsequent vent management deferred to intensive care ? 14 124 FiO2 down to 45% subsequent weaning left to critical care 3. COPD exacerbation ? Complicating care management as discussed above in addition to systemic steroids 4. Acute renal failure ? Patient baseline creatinine documented from 09/05/2020 was 0.59 creatinine admission was 2.98 patient is on fluids with monitoring of electrolyte ? 12/12/2023 patient kidney function continues to worsen consult was placed to nephrology. ? 12/13/2023; patient kidney function continues to worsen patient may be a candidate for renal replacement therapy. ? 12/14/2023; patient had hemodialysis the day prior scheduled to undergo repeat hemodialysis ? 1 12/15/2023; patient currently being dialyzed 5. Acute hepatic failure ? Patient found to have markedly transaminases (pattern consistent with alcohol use) and INR did receive vitamin K. Consult was placed to GI there was a recommendation to start N-acetylcysteine will defer to patient is evaluated by gastroenterology ? 12/12/2023; patient was seen in consultation by GI. INR remains elevate,patient is bleeding from various sites additional vitamin K given ? 12/13/2023 INR down to 2.4. 12/14/2023; patient transaminases improving. 6. Hypokalemia ? Potassium on admission was 5.3 down to 5.1 7. Hypoglycemia ? Attributed to patient liver failure 8. Polysubstance abuse ? Patient urine drug screen was positive for cannabis benzos MDMA and meth 9. DVT prophylaxis ? Has elevated INR no further treatment warranted Critical Time spent in the patient's overall evaluation,decision-making process, review of diagnostic data, adjustment of management, discussion with other providers, nursing nursing and ancillary staff involved in patient's care documentation, 40 minutes Charges/Coding Visit Charges Inpatient E&M: 64537 Subs Hosp L2
[2023-12-15] MEDS: 0.9% Normal Saline 1,000 ML IV.SOLN. 1000 ML OPERA.SITE (08:22)
[2023-12-15] MEDS: PureFlow B 2K Dialysis Soln 1 BAG 6 BAG PF (08:22)
--- NOTE | 2023-12-15 08:59 | PCM.PN.TICU ---
Objective Data Objective Data Vital Signs: Vital Signs Last response Temperature 37.3 C 12/15/23 08:19 Temperature Source Temporal 12/15/23 08:19 Pulse Rate 111 H 12/15/23 08:51 Pulse Strength Weak (1+) 12/14/23 19:23 Respiratory Rate 18 12/15/23 08:51 Respiratory Effort Normal, Non-Labored 12/15/23 08:10 Respiratory Depth Normal 12/15/23 08:10 Respiratory Pattern Normal 12/15/23 08:51 Blood Pressure 100/64 12/15/23 08:45 Blood Pressure Mean 76 12/15/23 08:45 Blood Pressure Source Monitor 12/15/23 08:45 Blood Pressure Position Semi-Fowlers 12/15/23 08:45 Blood Pressure Location Left Arm 12/15/23 08:45 Pulse Ox 94 12/15/23 08:51 Oxygen Delivery Method Mechanical Ventilator 12/15/23 08:45 Oxygen Flow Rate (L/min) 95 12/13/23 12:05 Fraction of Inspired Oxygen (FIO2) 45 12/15/23 08:00 I&O: I&O Last 24 Hours 12/14/23 12/14/23 12/15/23 11:59 23:59 11:59 Intake Total 864.90 / 1309.90 382.50 / 1309.90 415.92 / 415.92 Output Total 2635 / 2935 300 / 2935 115 / 115 Balance -1770.10 / -1625.10 82.50 / -1625.10 300.92 / 300.92 I&O: Total Stay 12/10/23 20:39 thru 12/15/23 08:30 Intake Total 44220.21 Output Total 7180 Balance 9838.21 Current Meds Ordered / Administered: Current meds ordered / Administered Generic Name Dose Route Start Last Admin Trade Name Freq PRN Reason Stop Dose Admin Albuterol/Ipratropium 3 ml 12/11/23 06:00 12/15/23 07:00 Ipratropium/Albuterol Sulfate 3 Ml Ampul.Neb INHALATION 3 ml Q4H.RT FANY Administration Chlorhexidine Gluconate 15 ml 12/11/23 10:00 12/14/23 20:44 Chlorhexidine 15 Ml PO 15 ml BID FANY Administration Chlorhexidine Gluconate 1 each 12/12/23 10:00 12/15/23 05:02 Chlorhexidine Gluc 2% Cloth 1 Each [place]lette TOPICAL 1 each DAILY FANY Administration Fentanyl Citrate 50 mcg 12/11/23 04:41 Fentanyl 100 Mcg/2 Ml Ampul IV Q2H PRN PRN Pain >/= 4/10 or CPOT>/= 3/8 Hemodialysis Solution 6 bag 12/15/23 07:15 12/15/23 08:22 Pureflow B 2k Dialysis Soln 1 Bag PF 12/15/23 19:07 5 bag UD FANY Administration Protocol Heparin Sodium (Porcine) 2,500 units 12/13/23 10:16 12/14/23 10:33 Heparin 10,000 Units/10 Ml Vial IV 2,500 units UD PRN Administration Dialysis Cath Heparin Flush Heparin Sodium (Porcine) 1,000 - 3,000 units 12/15/23 07:03 Heparin 10,000 Units/10 Ml Vial IV 12/15/23 19:04 X1 PRN HD catheter closing Hydrocortisone Sodium Succinate 50 mg 12/11/23 06:00 12/15/23 05:01 Hydrocortisone Sod Succinate 100 Mg/2 Ml Vial IV 50 mg Q6 FANY Administration Fentanyl 100 mls @ 2.5 mls/hr 12/10/23 21:55 12/15/23 08:30 CONT INF 0 mcg/hr UD FANY 0 mls/hr Titration Protocol 25 MCG/HR Folic Acid 1 mg/ Sodium 50.2 mls @ 200 mls/hr 12/11/23 10:00 12/14/23 11:30 Chloride IV Infused DAILY FANY Infusion Thiamine HCl 100 mg/ Sodium 51 mls @ 200 mls/hr 12/11/23 10:00 12/14/23 11:28 Chloride IV Infused DAILY FANY Infusion Sodium Chloride 250 mls @ 15 mls/hr 12/11/23 01:50 IV .[id number] PRN Additional IVPB Infusion Sodium Chloride 250 mls @ 15 mls/hr 12/11/23 01:50 12/13/23 05:52 IV Infused .[id number] PRN Infusion Saline Flush Norepinephrine Bitartrate 8 mg 250 mls @ 9.375 mls/hr 12/12/23 04:35 12/15/23 07:00 / Sodium Chloride CONT INF 0 mcg/min .[id number] FANY 0 mls/hr Titration Protocol 5 MCG/MIN Pantoprazole Sodium 40 mg/ 110 mls @ 330 mls/hr 12/12/23 10:00 12/14/23 21:31 Sodium Chloride IV Infused Q12 FANY Infusion Enteral Nutritional Formula 1,000 mls @ 10 mls/hr 12/12/23 10:05 12/15/23 08:25 Vital Af 1.2 Nicholas Liquid GT 0 mls/hr .Q48H FANY Infusion Piperacillin Sod/Tazobactam 50 mls @ 12.5 mls/hr 12/13/23 22:00 12/15/23 01:07 Sod 3.375 gm/ Sodium Chloride IV Infused Q12 FANY Infusion Insulin Human Lispro 0 unit 12/12/23 00:00 12/15/23 05:01 Insulin Lispro 100 Unit/Ml Insuln.Pen SC 1 u Q6 FANY Administration Protocol Lactulose 20 gm 12/13/23 09:10 12/15/23 05:02 Lactulose 20 Gm/30 Ml Udc PO 20 gm TID FANY Administration Midazolam HCl 2 mg 12/11/23 04:41 Midazolam 2 Mg/2 Ml Syringe IV Q2H PRN PRN sedation Senna/Docusate Sodium 2 tablet 12/12/23 10:00 12/14/23 20:47 Senna/Docusate Sodium 1 Tablet GT 2 tablet BID FANY Administration Sodium Chloride 10 - 40 ml 12/11/23 01:50 12/15/23 08:23 0.9% Saline Lock 10 Ml Syringe IV 10 ml UD PRN Administration SALINE FLUSH Sodium Chloride 10 ml 12/13/23 10:16 0.9% Saline Lock 10 Ml Syringe IV UD PRN Dialysis Catheter Flush Sodium Chloride 1,000 ml 12/15/23 07:05 12/15/23 08:22 0.9% Normal Saline 1,000 Ml Iv.Soln. OPERA.SITE 12/15/23 19:04 1,000 ml X1 FANY Administration Lab / Micro Data 12/15/23 03:10 12/15/23 03:10 Labs: Laboratory Results - last 24 hr 12/14/23 11:08: POC Glucose 138 H 12/14/23 17:18: POC Glucose 190 H 12/15/23 00:06: POC Glucose 178 H 12/15/23 03:10: WBC 15.7 H, RBC 3.89 L, Hgb 12.3 L, Hct 36.8 L, MCV 94.6 H, MCH 31.6, MCHC 33.4, RDW Std Deviation 52.7 H, RDW Coeff of Elaine 15.7 H, Plt Count 42 L*, MPV 10.3, PT 25.6 H, INR 2.4, Sodium 133 L, Potassium 4.7, Chloride 99, Carbon Dioxide 25.0, Anion Gap 9, BUN 81 H, Creatinine 4.78 H, Estim Creat Clear Calc 19.42, Est GFR (MDRD) Af Amer 16 L, Est GFR (MDRD) Non-Af 14 L, BUN/Creatinine Ratio 16.9, Glucose 191 H, Lactic Acid 1.5, Calcium 7.6 L, Total Bilirubin 8.00 H, Direct Bilirubin 5.96 H, AST 145 H, ALT 532 H, Alkaline Phosphatase 66, Total Protein 5.1 L, Albumin 2.3 L, Globulin 2.8 12/15/23 05:00: POC Glucose 181 H Micro: Microbiology 12/14/23 09:02 Sputum, Induced/Lukens Gram Stain - Final ABG Data ABG results: ABG 12/14/23 15:38 Specimen Type ART Sample Site R Radial pH 7.34 L Bicarbonate Actual 23.9 Total CO2 25 Base Excess -2 O2 Saturation 96 O2 % 50.0 ABG pCO2 43.8 ABG pO2 85 Yong Test Positive Respiration Rate 18 O2 Delivery Device Adult Vent Vent Mode AC Tidal Volume 500.0 POC PEEP 8 Imaging Radiology Impression KUB X-Ray 12/14/23 16:35 IMPRESSION: 1. Nasogastric tube with the tip left upper quadrant, likely in the body the stomach. 2. Suspect rectal tube. 3. No bowel obstruction. Electronically Signed: Contreras Valencia MD at 17:05 EDT , Chest X-Ray 12/15/23 05:50 IMPRESSION: Stable bibasilar opacities, left greater than right. This may be due to atelectasis or infiltrate. Stable small bilateral pleural effusions. Electronically Signed: Norberto Bess MD at 8:27 EDT , Assessment and Plan . Assessment and plan: Subjective: No acute events o/n. Vent requirements improving Physical Exam: Gen - NAD, intubated HEENT - MMM. ETT in place Resp - Diminished BS. Mechanically ventilated CV - RRR. No m/g/r Abd - Soft, NT, +distension Ext - No c/c. ++edema Skin - No rashes Neuro - Sedated, intubated. Minimally responsive off sedation I have reviewed the pertinent vital sign, laboratory, and imaging data. ASSESSMENT: # Acute hypoxic respiratory failure # Septic shock # Pneumonia - ?cavitary LL lesion vs bleb # COPD exacerbation # SIGRID # Acute encephalopathy # Thrombocytopenia # Lactic acidosis # Acute liver failure/transaminitis # UDS positive for ecstasy, amphetamine, benzo, MJ # Coagulopathy PLAN: -Cont VC 500/18/8/45%. Follow ABG/CXR -Off sedation this AM, continue holding as tolerated. Tolerating PS trial but still not awake enough for safe extubation. Daily SBT as tolerated -Cont lactulose -Nephrology following. Has received HD sessions x 2, receiving again today -Cont abx, sputum Cx with MSSA and H flu. Repeat cultures pdg. May need to broaden abx further/additional imaging if recurrent fever (none thus far) -LE dopplers reportedly neg for DVT but awaiting formal results -Lactate cleared now -Follow CBC, coags. Monitor for bleeding. Had some prior coffee grounds and line oozing reported, currently resolved. Lower suspicion for HIT, only started receiving heparin flushes for dialysis line after Plts began dropping -Monitor LFTs -SSI -TF held for high residuals, KUB unremarkable. Trial reglan FEN/GI: Try restarting trickle TF with reglan Proph DVT/GI: SCDs, protonix Critical Care Time: 50 mins The entirety of this encounter was completed via telemedicine
[2023-12-15] MEDS: Metoclopramide 10 MG/2 ML Vial 5 MG IV ×2 (11:05→20:47)
[2023-12-15] MEDS: Bisacodyl 10 MG Suppository RC (11:05)
[2023-12-15] MEDS: Folic Acid 1 MG in 0.9% Normal Saline (50mL Bag) 50 ML 200 MG IV (11:05)
[2023-12-15] MEDS: Thiamine Hydrochloride 100 MG in 0.9% Normal Saline (50mL Bag) 50 ML 200 MG IV (11:05)
[2023-12-15] MEDS: Chlorhexidine 15 ML PO ×2 (11:06→20:58)
[2023-12-15] MEDS: Senna/Docusate Sodium 1 Tablet 2 TABLET GT ×2 (11:06→20:47)
[2023-12-15] MEDS: Pantoprazole Sodium 40 MG in 0.9% Normal Saline (100mL MB+) 100 ML 330 MG IV ×2 (11:33→20:47)
[2023-12-15] MEDS: Vital AF 1.2 Cal Liquid 1,000 ML 10 ML GT (11:33)
[2023-12-15] MEDS: Piperacil/Tazobactam 3.375 GM in 0.9% Normal Saline (50mL MB+) 50 ML IV ×2 (11:33→20:48)
[2023-12-15 12:00] LABS: Bedside Glucose 160 mg/dL (74-106)
[2023-12-15 17:38] LABS: Bedside Glucose 159 mg/dL (74-106)
--- NOTE | 2023-12-15 19:15 | CT_ITS ---
STUDY: CT BRAIN WITHOUT CONTRAST REASON FOR EXAM: Male, 58 years old. AMS RADIATION DOSAGE (If Supplied By Facility): CTDIvol = ( 44.99 ) mGy, DLP = ( 829.85 ) mGycm TECHNIQUE: Transaxial CT imaging of the brain was performed without administration of intravenous contrast material. Individualized dose optimization techniques were used for this CT. COMPARISON: 12/10/2023 FINDINGS: Normal soft tissue structures. Normal calvarium. Normal size ventricles and extra-axial spaces for the patient''s age. Normal white matter tracts of the cerebral hemispheres. Normal basal ganglia and thalami. Normal brainstem. Normal cerebellum. There is no intracranial hemorrhage. There are no findings of an acute ischemic infarction. Normal visualized paranasal sinuses. CT/Brain/Head without Contrast IMPRESSION: Normal unenhanced CT scan of the brain. Electronically Signed: Contreras Valencia MD at 20:02 EDT ,
[2023-12-15 23:29] LABS: Bedside Glucose 183 mg/dL (74-106)
[2023-12-16] VITALS (37 sets, daily range): BP systolic 84–138; BP diastolic 62–86; PULSE 106–126; RESP 15–25; TEMP 37.3–39.4; O2SAT 88–96; BMI 27.8
[2023-12-16] MEDS: Polyethylene Glycol 3350 17 GM PACKET PO (01:41)
[2023-12-16] MEDS: CHLORHEXIDINE GLUC 2% CLOTH 1 EACH TOWELETTE TOPICAL (01:41)
[2023-12-16] MEDS: 0.9% Saline Lock 10 ML Syringe IV ×4 (01:42→20:46)
[2023-12-16] MEDS: Ipratropium/Albuterol Sulfate 3 ML AMPUL.NEB INHALATION ×5 (02:10→22:46)
[2023-12-16 03:41] LABS: Hematocrit 32.2 % (40-54); Hemoglobin 10.8 g/dL (13.0-16.5); Mean Corp Hgb Conc 33.5 g/dL (32-36); Mean Corpuscular Hgb 31.5 pg (27.0-32.0); Mean Corpuscular Volume 93.9 fL (80-94); Mean Platelet Vol. 12.5 fl (6.2-12.0); POSITIVE COUNT YES; RBC Distribution Width CV 15.4 % (11.6-14.6); RBC Distribution Width SD 51.6 fl (35.1-43.9); Red Blood Count 3.43 M/mm3 (4.6-6.2); White Blood Count 12.6 K/mm3 (4.4-11.0)
[2023-12-16 03:49] LABS: Platelet Count 49 K/mm3 (150-450); Scan Indicated on CBC? Y/N YES- FLAGS NOTED
[2023-12-16 03:54] LABS: International Normalized Ratio 2.4; Prothrombin Time (Protime)PT. 26.1 SECONDS (11.7-14.9)
[2023-12-16 03:56] LABS: AST(SGOT) 100 U/L (15-37); Alanine Aminotransfer ALT/SGPT 324 U/L (16-61); Albumin, Serum 2.1 g/dL (3.2-5.0); Alkaline Phosphatase 63 U/L (45-117); Anion Gap 7 (5-15); BUN 85 mg/dL (7-18); Bilirubin, Direct 6.34 mg/dL (0.00-0.30); Calcium,Total 7.4 mg/dL (8.5-10.1); Chloride 101 mmol/L (98-107); Creatinine, Serum 4.26 mg/dL (0.70-1.30); EST Glomerular Filtration Rate 15 mL/min (>60); Est Glom Filt Rate - Afr Amer 19 mL/min (>60); Estimated Creatinine Clearance 21.41 ml/min; Globulin 2.6 g/dL (2.2-4.2); Glucose 241 mg/dL (74-106); Potassium 5.1 mmol/L (3.5-5.1); Protein, Total 4.7 g/dL (6.4-8.2); Sodium Level 135 mmol/L (136-145)
[2023-12-16 04:29] LABS: Differential Comment SCANNED
[2023-12-16 04:34] LABS: Platelet Count 42 K/mm3 (150-450)
[2023-12-16] MEDS: Lactulose 20 GM/30 ML UDC PO ×3 (05:05→20:38)
[2023-12-16] MEDS: Hydrocortisone Sod Succinate 100 MG/2 ML Vial 50 MG IV ×3 (05:05→20:39)
[2023-12-16] MEDS: Insulin Lispro 100 UNIT/ML INSULN.PEN SC ×4 (05:06→23:17)
[2023-12-16 05:30] LABS: Bedside Glucose 250 mg/dL (74-106)
--- NOTE | 2023-12-16 07:34 | PN.CC_ITS ---
Assessment & Plan Assessment/Plan (1) Septic shock: (2) Aspiration into airway: PLAN: Plan RECOMMENDATIONS: 1. Continue assist-control mode mechanical ventilation. Wean FiO2 and PEEP to maintain saturations at or above 90%. 2. Okay to de-escalate antibiotics based upon cultures and sensitivities. 3. Decrease stress dose steroids to twice daily. 4. Continue to avoid sedating medications. 5. Obtain follow-up ABG, TSH and ammonia. 6. Ongoing dialysis support per nephrology recommendations. 7. Continue bronchodilator therapy. 8. Obtain EEG and neurology consultation. IMPRESSIONS: 1. Acute combined respiratory failure The patient initially presented to the hospital after being found down unresponsive by family members. He does have reported history of COPD along with a positive toxicology screen at presentation. The patient was notably hypercapnic and was intubated as a consequence of this. The patient's acid-base status has improved with invasive mechanical ventilatory support. He does have evidence of multifocal airspace disease on chest imaging, with Staph aureus and haemophilus influenza isolated on sputum culture. The patient remains on appropriate antimicrobial therapy. Continue current supportive measures. 2. Septic shock Improved. Most likely secondary to presenting pneumonia. The patient has been weaned from vasopressor support and remains hemodynamically stable. Will continue to wean stress dose steroids as tolerated. 3. Multisystem organ failure with coagulopathy Clinical concern for ischemic etiologies for acute liver and kidney failure. Nephrology and gastroenterology are following to assist with medical management. 4. Toxic/metabolic encephalopathy Continue supportive measures as noted above. Hypercapnia has improved with invasive mechanical ventilatory support. However, the patient remains significantly encephalopathic, which is limiting his ability to be extubated. Plan to obtain follow-up ABG, TSH and ammonia level. CT head was unremarkable. EEG will be obtained along with neurology consultation. 5. History of polysubstance dependency Complicates care, management, recovery and prognosis. Continue supportive measures as outlined above. TIME: 36 minutes of critical care time, independent of procedures, was spent a ddressing the patient's acute combined respiratory failure, septic shock, multisystem organ failure with coagulopathy, toxic/metabolic encephalopathy, review of all data and collaboration with the care team. Subjective Subjective The patient was seen and examined at the bedside this morning. Events from the last 24 hours have been reviewed. The patient has been experiencing some low- grade fevers overnight. He did receive dialysis support over the weekend. The patient is currently documented to be overall net +8.1 L for the hospitalization. Although the patient is currently on a spontaneous breathing trial, he remains encephalopathic and unable to follow any commands. Hemoglobin has dropped to 10.8 g/dL this morning with a platelet count of 49,000. INR this morning was noted to be 2.4. Total bili continues to climb. Head CT completed yesterday was unremarkable. The patient is not currently on any continuous sedation. The patient's last ammonia check was 110 on December 11. Objective Data Objective Data The patient's most recent lab work, culture data and imaging studies have all been personally reviewed. CT chest/abdomen/pelvis demonstrated patchy bilateral airspace disease with diffuse emphysematous changes. Abdominal ultrasound demonstrated mild to moderate ascites without any significant pathology. Sputum culture was positive for MSSA and haemophilus influenza. Surface echocardiogram demonstrated an ejection fraction of 45% with a moderately dilated RV, moderate global RV systolic dysfunction and pulmonary artery systolic pressure of 30 mmHg. Vital Signs: Vital Signs Temp Pulse Resp BP Pulse Ox O2 Del Method O2 Flow Rate 100.3 F H 116 H 25 H 108/73 93 Mechanical Ventilator 95 12/16/23 05:00 12/16/23 07:21 12/16/23 07:21 12/16/23 07:00 12/16/23 07:21 12/16/23 07:00 12/13/23 12:05 FiO2 40 12/16/23 07:00 Oxygen Flow Rate (L/min) 95 Oxygen Delivery Method Mechanical Ventilator Weight: 194 lb 10.691 oz Body Mass Index (BMI) 27.8 Intake & Output: Intake and Output for Last 24 Hours 12/14/23 12/15/23 12/16/23 23:59 23:59 23:59 Intake Total 1247.40 / 1309.90 1122.29 / 1246.79 384.5 / 384.5 Output Total 2935 / 2935 2555 / 2705 350 / 350 Balance -1687.60 / -1625.10 -1432.71 / -1458.21 34.5 / 34.5 Lab / Micro Data Attestation: I reviewed the patient's lab results. 12/16/23 03:30 12/16/23 03:30 Labs: Laboratory Results - last 24 hr 12/15/23 03:10: Plt Count 42 L* 12/15/23 11:09: POC Glucose 160 H 12/15/23 17:12: POC Glucose 159 H 12/15/23 23:04: POC Glucose 183 H 12/16/23 03:30: WBC 12.6 H, RBC 3.43 L, Hgb 10.8 L, Hct 32.2 L, MCV 93.9, MCH 31.5, MCHC 33.5, RDW Std Deviation 51.6 H, RDW Coeff of Elaine 15.4 H, Plt Count 49 L*, MPV 12.5 H, Differential Comment SCANNED, Diff Path Review December, PT 26.1 H, INR 2.4, Sodium 135 L, Potassium 5.1, Chloride 101, Carbon Dioxide 27.0, Anion Gap 7, BUN 85 H, Creatinine 4.26 H, Estim Creat Clear Calc 21.41, Est GFR (MDRD) Af Amer 19 L, Est GFR (MDRD) Non-Af 15 L, BUN/Creatinine Ratio 20.0, Glucose 241 H, Calcium 7.4 L, Total Bilirubin 8.50 H, Direct Bilirubin 6.34 H, AST 100 H, ALT 324 H, Alkaline Phosphatase 63, Total Protein 4.7 L, Albumin 2.1 L, Globulin 2.6 12/16/23 05:00: POC Glucose 250 H Micro: Microbiology 12/10/23 20:50 Blood Culture (Wb) - Anticubital Right Blood Culture - Final No growth in 5 days. 12/10/23 20:50 Blood Culture (Wb) - Anticubital Left Blood Culture - Final No growth in 5 days. 12/14/23 09:25 Urine Catheter - Landry Urine Culture - Preliminary Culture exhibits no growth. 12/14/23 09:02 Sputum, Induced/Lukens Gram Stain - Final 12/14/23 09:02 Sputum, Induced/Lukens Respiratory Culture - Preliminary Presumptive C albicans 12/10/23 Unknown Sputum, Induced/Lukens Gram Stain - Final 12/10/23 Unknown Sputum, Induced/Lukens Respiratory Culture - Final Staphylococcus aureus Haemophilus influenzae 12/10/23 20:50 Urine Catheter - Landry Urine Culture - Final Culture exhibits no growth. 12/10/23 20:50 Mucosa - Nose SARS-CoV-2, Influenza & RSV (PCR) - Final Radiography Diagnostic Testing: Radiology Impression Chest X-Ray 12/15/23 05:50 IMPRESSION: Stable bibasilar opacities, left greater than right. This may be due to atelectasis or infiltrate. Stable small bilateral pleural effusions. Electronically Signed: Norberto Bess MD at 8:27 EDT , Brain CT 12/15/23 19:15 IMPRESSION: Normal unenhanced CT scan of the brain. Electronically Signed: Contreras Valencia MD at 20:02 EDT , Physical Exam Const Constitutional Narrative: Intubated, sedated and mechanically ventilated. No ventilator dyssynchrony noted. HEENT normocephalic and head/scalp atraumatic Mouth: endotracheal tube in place and OG tube in place Eyes PERRL Neck supple General: trachea midline Chest inspection of chest normal Resp normal respiratory effort Auscultation: diminished lung sounds; Negative for rales, rhonchi or wheezes Cardio regular rate and regular rhythm GI normal to inspection, nondistended, normoactive bowel sounds Extremity no clubbing, cyanosis or edema Skin no rashes or lesions noted Neuro Neuro Narrative: Currently without any form of sedation. Will not follow any commands. Charges/Coding Procedures Hospitalists Procedures: 36035 Critical Care 1st Hr
--- NOTE | 2023-12-16 07:53 | PCM.PN.HOSP ---
Reason for Visit Reason for Visit: Unresponsiveness Subjective Subjective Patient is a 58-year-old male who presented to emergency department which [facility] on 12/10/2023 due to being found unresponsive by his family. And route to the hospital he was bagged by EMS. His blood sugar was 84 at that time and he was given 1 mg of Narcan without response. He was intubated upon arrival to the emergency department. Per documentation, he was texting with his mother earlier that afternoon and per her everything seemed to be normal. Toxicology screen was performed and several drugs were noted including benzodiazepines, marijuana, and ecstasy. Home medications are documented as aripiprazole and sertraline however we are unsure of compliance. His alcohol level was found to be normal. Family does report that he has previous drug use history however they were not aware that he was still using. There was concern that he likely aspirated during his period of altered mental status and with that intubation as extensive suctioning was required to view the vocal cords on intubation. Vital signs on presentation showed a temperature of 98.4, heart rate 100, respiratory was 16, blood pressure is 145 over sat 92 and oxygen saturation was 73% on room air. Sats improved to 91% with an Ambu bag however his mental status did not improve. CBC on presentation showed a white count of 25.9, normal hemoglobin, platelet count was unremarkable at 216,000 and he had a left shift with an 85.3% neutrophilia. His coags were markedly abnormal with a INR of 5.3 and a PTT of 47.8 and a PTT of 35.6. These have slowly and trended down since that point in time. Initial blood gas showed a pH of 6.9 with a pCO2 of 124.4 a pO2 of 97 with a sat of 89% on a nonrebreather. His initial chemistry panel showed a normal sodium, mildly elevated potassium of 5.3 likely related to his SIGRID and an acidosis. His BUN was 48 and serum creatinine was 2.98 which was markedly above his baseline of previous documentation in our record of 0.59 however that was from 2020. His initial lactate was 9.8 with a repeat of 5.9. His bilirubin was 5.1 his AST was 3585 with an ALT of 972. His ammonia level was 139. His initial troponin was 93. TSH is within normal limits. His initial CK was 522 and this increased to 1754. An echocardiogram was performed and demonstrated a mildly depressed EF at 45% with a D-shaped septum in systole and diastole in her right pulmonary systolic pressure of 30 mmHg. His RV was moderately dilated and showed moderate global dysfunction. He was admitted to the ICU and gastroenterology and critical care medicine as well as nephrology were consulted. GI felt that his transaminitis was related to ischemic hepatitis and he was treated as such however further workup is pending with acute hepatitis panels. Cultures were obtained and he was placed on broad-spectrum antibiotics. His overall prognosis was deemed to be very poor. No meaningful interaction. Patient does open eyes but does not follow commands. Will spontaneously move extremities but nothing purposeful. No bowel movement despite lactulose. Objective Data Objective Data Vital Signs: Vital Signs Temp Pulse Resp BP Pulse Ox O2 Del Method O2 Flow Rate 100.3 F H 116 H 25 H 108/73 93 Mechanical Ventilator 95 12/16/23 05:00 12/16/23 07:21 12/16/23 07:21 12/16/23 07:00 12/16/23 07:21 12/16/23 07:00 12/13/23 12:05 FiO2 40 12/16/23 07:00 Oxygen Flow Rate (L/min) 95 Oxygen Delivery Method Mechanical Ventilator Weight: 88.3 kg Body Mass Index (BMI) 27.8 Intake & Output: Intake and Output for Last 24 Hours 12/14/23 12/15/23 12/16/23 23:59 23:59 23:59 Intake Total 1247.40 / 1309.90 1122.29 / 1246.79 384.5 / 384.5 Output Total 2935 / 2935 2555 / 2705 350 / 350 Balance -1687.60 / -1625.10 -1432.71 / -1458.21 34.5 / 34.5 Lab / Micro Data 12/16/23 03:30 12/16/23 03:30 Labs: Laboratory Results - last 24 hr 12/15/23 03:10: Plt Count 42 L* 12/15/23 11:09: POC Glucose 160 H 12/15/23 17:12: POC Glucose 159 H 12/15/23 23:04: POC Glucose 183 H 12/16/23 03:30: WBC 12.6 H, RBC 3.43 L, Hgb 10.8 L, Hct 32.2 L, MCV 93.9, MCH 31.5, MCHC 33.5, RDW Std Deviation 51.6 H, RDW Coeff of Elaine 15.4 H, Plt Count 49 L*, MPV 12.5 H, Differential Comment SCANNED, Diff Path Review December foll, PT 26.1 H, INR 2.4, Sodium 135 L, Potassium 5.1, Chloride 101, Carbon Dioxide 27.0, Anion Gap 7, BUN 85 H, Creatinine 4.26 H, Estim Creat Clear Calc 21.41, Est GFR (MDRD) Af Amer 19 L, Est GFR (MDRD) Non-Af 15 L, BUN/Creatinine Ratio 20.0, Glucose 241 H, Calcium 7.4 L, Total Bilirubin 8.50 H, Direct Bilirubin 6.34 H, AST 100 H, ALT 324 H, Alkaline Phosphatase 63, Total Protein 4.7 L, Albumin 2.1 L, Globulin 2.6 12/16/23 05:00: POC Glucose 250 H Micro: Microbiology 12/10/23 20:50 Blood Culture (Wb) - Anticubital Right Blood Culture - Final No growth in 5 days. 12/10/23 20:50 Blood Culture (Wb) - Anticubital Left Blood Culture - Final No growth in 5 days. 12/14/23 09:25 Urine Catheter - Landry Urine Culture - Preliminary Culture exhibits no growth. 12/14/23 09:02 Sputum, Induced/Lukens Gram Stain - Final 12/14/23 09:02 Sputum, Induced/Lukens Respiratory Culture - Preliminary Presumptive C albicans 12/10/23 Unknown Sputum, Induced/Lukens Gram Stain - Final 12/10/23 Unknown Sputum, Induced/Lukens Respiratory Culture - Final Staphylococcus aureus Haemophilus influenzae 12/10/23 20:50 Urine Catheter - Landry Urine Culture - Final Culture exhibits no growth. 12/10/23 20:50 Mucosa - Nose SARS-CoV-2, Influenza & RSV (PCR) - Final Radiography Diagnostic Testing: Radiology Impression Chest X-Ray 12/15/23 05:50 IMPRESSION: Stable bibasilar opacities, left greater than right. This may be due to atelectasis or infiltrate. Stable small bilateral pleural effusions. Electronically Signed: Norberto Bess MD at 8:27 EDT , Brain CT 12/15/23 19:15 IMPRESSION: Normal unenhanced CT scan of the brain. Electronically Signed: Contreras Valencia MD at 20:02 EDT , Physical Exam Const no apparent distress and average body habitus; Negative for healthy appearing or well nourished Constitutional Narrative: Middle-aged, white male, lying in bed intubated and sedated, opens eyes intermittently but no purposeful interaction, appears much older than stated age HEENT head/scalp atraumatic and moist oral mucous membranes HEENT Narrative: Dentition is poor, ET tube and OG in place, temporal wasting is present Head and Scalp: normocephalic Eyes PERRL and conjunctivae normal Eyes Narrative: Scleral icterus Resp normal respiratory effort, no retractions, no use of accessory muscles and clear to auscultation bilaterally Resp Narrative: Diffusely diminished but clear Auscultation: Negative for rales, rhonchi or wheezes Cardio regular rhythm, S1 normal heart sound, S2 normal heart sound, no murmurs, no rub, no gallops and no clicks Cardio Narrative: Tachycardic GI GI Narrative: Mild distention with hypoactive bowel sounds but soft, does not appear to be tender Extremity Extremity Narrative: Bilateral upper and lower extremity edema that is pitting in nature, no cyanosis or clubbing, right upper extremity PICC in place Skin skin turgor normal, No no jaundice, no petechiae and no mottling Skin Narrative: Left IJ hemodialysis catheter in place, clean and dry, dressing intact Neuro Neuro Narrative: Continuous movement of extremity but no purposeful interaction, does withdraw to noxious stimuli, does not follow any verbal commands, no significant sedation on board at this time Psych Psych Narrative: Unable to assess Assessment & Plan Assessment/Plan (1) Acidosis, lactic: (2) Polysubstance abuse: (3) Hyperammonemia: (4) Multi-organ failure with liver failure: (5) Septic shock: (6) Acute hypercapnic respiratory failure: (7) SIGRID (acute kidney injury): (8) Acute hypoxic on chronic hypercapnic respiratory failure: (9) Thrombocytopenia: (10) Anemia: PLAN: Plan Acute hypoxic and hypercapnic respiratory failure secondary to pneumonia/altered mental status -Likely multifactorial with sepsis and positive toxicology screen -Patient was markedly acidotic on presentation with a pCO2 greater than 125 -Vent has been weaned to 40% FiO2 and sats are between 92 and 93%. -Sedation with fentanyl -Sedation vacations per critical care medicine and extubation per critical care medicine -Possible Lesions on CT of the abdomen and pelvis -CCM following-appreciate input Septic shock secondary to H. influenzae and MSSA pneumonia/new fever -Blood pressures appear to be stabilizing -Patient is on stress dose steroids hydrocortisone 50 every 12 -Wean as able -Currently requiring no pressors -Continue antibiotics -Initial blood cultures are negative however repeat are pending due to fever elevated white count -Initial and subsequent urine cultures unremarkable -Continue antibiotics as ordered SIGRID secondary to ischemic ATN -Most recent serum creatinine appears from 2020 and was 0.59 -Admission creatinine was 2.98 -Patient has been an uric and HD initiated on 12/13/2023 -Last HD was 12/14/2023 and solute clearance is improving however patient is still volume overloaded and patient remains oliguric -CT without hydronephrosis -Nephrology is following-appreciate input -May need tunneled dialysis catheter placed if dialysis needs remain at the time of discharge Rhabdomyolysis -Mild -Resolved Hyperkalemia -Due to the above renal dysfunction -Resolved with dialysis -Continue to monitor Acute exacerbation of COPD -Management per critical care medicine/pulmonary medicine Acute toxic/metabolic encephalopathy -Patient with elevated ammonia as well but suspect this is multifactorial -Continue lactulose--> I do not see that he had any bowel movements however -Continue sedation vacations to monitor response -CT brain done yesterday and was unremarkable -AM ammonia level is pending -Repeat TSH is pending Ischemic hepatitis with coagulopathy -Coagulopathy improved with vitamin K and N-acetylcysteine -AST and ALT are slowly improving however we continue to see a rise in his bilirubin -INR and PTT are still elevated however much improved with current INR at 2.4 -Await further gastroenterology input Hyperglycemia with history of hypoglycemia -Likely related to stress as well as stress dose steroids -Start Lantus 15 units -Continue SSI -Monitor closely with renal dysfunction Thrombocytopenia -Multifactorial -Platelet count actually appears to be stabilizing and is currently 49,000 up from 42,000 yesterday which was the mirella -Continue to monitor Leukocytosis -Is slowly trending down -Has had low-grade fevers -Will continue to monitor -Continue antibiotics -Repeat cultures are pending Tachycardia -Mild -Likely related to the above -Continue to monitor Anemia -This appears to be new -Hemoglobin is down to 10.8 however patient is 8.1 L positive for hospitalization next-platelet count is low so this does increase his risk for bleeding along with his renal and liver dysfunction -Check stool guaiac Depression-NOS -It is documented he is on aripiprazole and sertraline at home -Continue to hold these and will need to verify Tobacco abuse -Unclear if current amount -Will discuss further if patient able to be extubated DVT prophylaxis -Currently contraindicated chemoprophylaxis due to thrombocytopenia and coagulopathy -Continue SCDs CODE STATUS Full code Charges/Coding Visit Charges Inpatient E&M: 17420 Subs Hosp L2
[2023-12-16] MEDS: 0.9% Normal Saline (250mL Bag) 250 ML 15 ML IV (08:04)
[2023-12-16] MEDS: Thiamine Hydrochloride 100 MG in 0.9% Normal Saline (50mL Bag) 50 ML 200 MG IV (08:04)
[2023-12-16] MEDS: Folic Acid 1 MG in 0.9% Normal Saline (50mL Bag) 50 ML 200 MG IV (08:25)
[2023-12-16 08:36] LABS: Thyroid Stim Hormone (TSH) 0.44 uIU/mL (0.358-3.74)
[2023-12-16] MEDS: Pantoprazole Sodium 40 MG in 0.9% Normal Saline (100mL MB+) 100 ML 330 MG IV ×2 (08:51→20:39)
[2023-12-16] MEDS: Senna/Docusate Sodium 1 Tablet 2 TABLET GT ×2 (09:17→20:38)
[2023-12-16] MEDS: Chlorhexidine 15 ML PO ×2 (09:17→20:38)
[2023-12-16] MEDS: Insulin Glargine-YFGN 100 UNIT/ML Pen 15 UNIT SC (09:18)
[2023-12-16] MEDS: Metoclopramide 10 MG/2 ML Vial 5 MG IV (09:18)
[2023-12-16 09:22] LABS: Allen Test Positive; Base Excess 0 mmol/L (-2 to +2); Bicarbonate 26.5 mmol/L (22-26); Blood Gas Specimen Type ART; Mode CPAP/PS; O2 Delivery Device Adult Vent; PEEP 5; PO2 73 mmHG (75-100); SITE L Radial; SO2 93 % (95-99); Total Carbon Dioxide 28 mmol/L; pCO2 51.7 mmHg (35-45); pH 7.32 (7.35-7.45)
[2023-12-16] MEDS: Ceftriaxone 1 GM/50 ML BAG IV (10:09)
--- NOTE | 2023-12-16 11:59 | PCM.PN.REN ---
Subjective Subjective Remains intubated. Blood pressure is okay without pressors. Low-grade fevers. Urine output somewhat better than before. brown urine. Objective Data Objective Data Vital Signs: Vital Signs Temp Pulse Resp BP Pulse Ox O2 Del Method O2 Flow Rate 100.5 F H 116 H 18 119/76 92 Mechanical Ventilator 95 12/16/23 08:00 12/16/23 11:24 12/16/23 11:24 12/16/23 10:00 12/16/23 11:24 12/16/23 11:30 12/13/23 12:05 FiO2 40 12/16/23 11:30 Oxygen Flow Rate (L/min) 95 Oxygen Delivery Method Mechanical Ventilator Weight: 88.3 kg Body Mass Index (BMI) 27.8 Intake & Output: Intake and Output for Last 24 Hours 12/14/23 12/15/23 12/16/23 23:59 23:59 23:59 Intake Total 1247.40 / 1309.90 1122.29 / 1246.79 933.53 / 933.53 Output Total 2935 / 2935 2555 / 2705 560 / 560 Balance -1687.60 / -1625.10 -1432.71 / -1458.21 373.53 / 373.53 Lab / Micro Data 12/16/23 03:30 12/16/23 03:30 Labs: Laboratory Results - last 24 hr 12/15/23 03:10: Plt Count 42 L* 12/15/23 11:09: POC Glucose 160 H 12/15/23 17:12: POC Glucose 159 H 12/15/23 23:04: POC Glucose 183 H 12/16/23 03:30: WBC 12.6 H, RBC 3.43 L, Hgb 10.8 L, Hct 32.2 L, MCV 93.9, MCH 31.5, MCHC 33.5, RDW Std Deviation 51.6 H, RDW Coeff of Elaine 15.4 H, Plt Count 49 L*, MPV 12.5 H, Differential Comment SCANNED, Diff Path Review December, PT 26.1 H, INR 2.4, Sodium 135 L, Potassium 5.1, Chloride 101, Carbon Dioxide 27.0, Anion Gap 7, BUN 85 H, Creatinine 4.26 H, Estim Creat Clear Calc 21.41, Est GFR (MDRD) Af Amer 19 L, Est GFR (MDRD) Non-Af 15 L, BUN/Creatinine Ratio 20.0, Glucose 241 H, Calcium 7.4 L, Total Bilirubin 8.50 H, Direct Bilirubin 6.34 H, AST 100 H, ALT 324 H, Alkaline Phosphatase 63, Total Protein 4.7 L, Albumin 2.1 L, Globulin 2.6 12/16/23 05:00: POC Glucose 250 H 12/16/23 07:50: Ammonia 42.0 H, TSH 0.44 Micro: Microbiology 12/14/23 09:25 Urine Catheter - Landry Urine Culture - Final Culture exhibits no growth. 12/14/23 09:02 Sputum, Induced/Lukens Gram Stain - Final 12/14/23 09:02 Sputum, Induced/Lukens Respiratory Culture - Final Presumptive C albicans 12/10/23 20:50 Blood Culture (Wb) - Anticubital Right Blood Culture - Final No growth in 5 days. 12/10/23 20:50 Blood Culture (Wb) - Anticubital Left Blood Culture - Final No growth in 5 days. 12/10/23 Unknown Sputum, Induced/Lukens Gram Stain - Final 12/10/23 Unknown Sputum, Induced/Lukens Respiratory Culture - Final Staphylococcus aureus Haemophilus influenzae 12/10/23 20:50 Urine Catheter - Landry Urine Culture - Final Culture exhibits no growth. 12/10/23 20:50 Mucosa - Nose SARS-CoV-2, Influenza & RSV (PCR) - Final ABG Data ABG results: ABG 12/16/23 09:18 Specimen Type ART Sample Site L Radial pH 7.32 L Bicarbonate Actual 26.5 H Total CO2 28 Base Excess 0 O2 Saturation 93 L O2 % 40.0 ABG pCO2 51.7 H ABG pO2 73 L Yong Test Positive O2 Delivery Device Adult Vent Vent Mode CPAP/PS POC PEEP 5 Radiography Diagnostic Testing: Radiology Impression Brain CT 12/15/23 19:15 IMPRESSION: Normal unenhanced CT scan of the brain. Electronically Signed: Contreras Valencia MD at 20:02 EDT , Physical Exam Narrative Ill-appearing, intubated and only on low-dose fentanyl Breath sounds are diminished S1-S2 regular Abdomen is distended Positive for scrotal edema Still significant lower extremity edema Left IJ Vas-Cath Assessment & Plan Assessment/Plan (1) SIGRID (acute kidney injury): PLAN: Normal baseline. CT abd without hydro. Rhabdomyolysis. mild hyperkalemia due to SIGRID urine tox positive for multiple drugs aspiration pneumonia suspected Intermittent hemodialysis initiated on 12/12 Received 3 dialysis treatments so far. Oxygenation levels have improved. Electrolytes are acceptable. Still has moderate peripheral edema. Breathing trial this morning but failed mostly due to mental status. Not completely alert. CT head negative. EEG pending, neurology consult pending. We will plan for dialysis tomorrow. Discussed with ICU attending. (2) Acute hypercapnic respiratory failure: (3) Septic shock:
[2023-12-16] MEDS: Metoclopramide 10 MG/2 ML Vial IV ×2 (13:09→20:38)
[2023-12-16 13:33] LABS: Bedside Glucose 221 mg/dL (74-106)
[2023-12-16 16:08] LABS: Pathologist Review Reviewed
[2023-12-16 17:26] LABS: Bedside Glucose 208 mg/dL (74-106)
--- NOTE | 2023-12-16 23:25 | NURSING ---
Cooling blanket applied around 2029 for rectal temp of 102.9. Stopped now for temp of 97.7.
[2023-12-16 23:40] LABS: Bedside Glucose 204 mg/dL (74-106)
[2023-12-17] VITALS (50 sets, daily range): BP systolic 73–215; BP diastolic 51–82; PULSE 85–113; RESP 13–23; TEMP 36.4–37.2; O2SAT 90–99; BMI 27.6; BMI 27.3
[2023-12-17 02:58] LABS: Absolute Lymphocyte Count 0.89 X10^3/uL (0.83-4.51); Basophil# 0.03 X10^3/uL; Basophil% 0.2 % (0-1); Hematocrit 25.8 % (40-54); Hemoglobin 8.9 g/dL (13.0-16.5); Lymphocyte # 0.89 X10^3/ul (0.83-4.51); Lymphocyte % 7.1 % (19-41); Mean Corp Hgb Conc 34.5 g/dL (32-36); Mean Corpuscular Hgb 31.8 pg (27.0-32.0); Mean Corpuscular Volume 92.1 fL (80-94); Mean Platelet Vol. 12.7 fl (6.2-12.0); Monocyte# 1.32 X10^3/uL; Monocyte% 10.6 % (0-10); NRBC Flagged by Analyzer 1.1 % (0-5); Neutrophil # 9.97 X10^3/uL (2.7-7.7); Neutrophil % 80.2 % (47-70); POSITIVE COUNT YES; Platelet Count 54 K/mm3 (150-450); RBC Distribution Width CV 15.6 % (11.6-14.6); RBC Distribution Width SD 49.6 fl (35.1-43.9); White Blood Count 12.5 K/mm3 (4.4-11.0)
[2023-12-17] MEDS: Ipratropium/Albuterol Sulfate 3 ML AMPUL.NEB INHALATION ×5 (03:14→18:56)
[2023-12-17 03:20] LABS: ALB/GLOB Ratio 0.8 RATIO (0.9-2.4); AST(SGOT) 101 U/L (15-37); Alanine Aminotransfer ALT/SGPT 224 U/L (16-61); Albumin, Serum 1.9 g/dL (3.2-5.0); Alkaline Phosphatase 60 U/L (45-117); Anion Gap 8 (5-15); BUN 99 mg/dL (7-18); BUN/Creat Ratio 24.6 RATIO (10-20); Calcium,Total 7.1 mg/dL (8.5-10.1); Chloride 103 mmol/L (98-107); Creatinine, Serum 4.03 mg/dL (0.70-1.30); EST Glomerular Filtration Rate 16 mL/min (>60); Est Glom Filt Rate - Afr Amer 20 mL/min (>60); Estimated Creatinine Clearance 22.63 ml/min; Globulin 2.4 g/dL (2.2-4.2); Glucose 242 mg/dL (74-106); Magnesium 2.4 mg/dL (1.6-2.6); Phosphorus 5.1 mg/dL (2.5-4.9); Potassium 5.2 mmol/L (3.5-5.1); Protein, Total 4.3 g/dL (6.4-8.2); Sodium Level 136 mmol/L (136-145)
[2023-12-17 04:01] LABS: International Normalized Ratio 2.8; Prothrombin Time (Protime)PT. 29.6 SECONDS (11.7-14.9)
[2023-12-17 04:02] LABS: Partial Thromboplast Time 40.1 Seconds (24.1-36.2)
[2023-12-17] MEDS: Metoclopramide 10 MG/2 ML Vial IV ×3 (05:16→20:26)
[2023-12-17] MEDS: CHLORHEXIDINE GLUC 2% CLOTH 1 EACH TOWELETTE TOPICAL (05:16)
[2023-12-17] MEDS: Lactulose 20 GM/30 ML UDC PO ×3 (05:16→20:26)
[2023-12-17] MEDS: 0.9% Saline Lock 10 ML Syringe IV ×6 (05:17→20:26)
[2023-12-17] MEDS: Insulin Lispro 100 UNIT/ML INSULN.PEN SC ×4 (05:18→23:23)
[2023-12-17 05:42] LABS: Bedside Glucose 231 mg/dL (74-106)
[2023-12-17 05:49] LABS: D-Dimer Quantitative (DVT/PE) 16.66 FEU/ug/m (0.27-0.49); Fibrinogen 88 mg/dl (203-444)
--- NOTE | 2023-12-17 06:51 | PCM.PN.INT ---
Assessment & Plan Assessment/Plan (1) Septic shock: (2) Aspiration into airway: PLAN: Plan RECOMMENDATIONS: 1. Continue assist-control mode mechanical ventilation. Wean FiO2 and PEEP to maintain saturations at or above 90%. 2. Continue antibiotics. 3. Continue to decrease stress dose steroids as tolerated. 4. Continue to avoid sedating medications. 5. Awaiting neurology evaluation. MRI to be completed today. 6. Ongoing dialysis support per nephrology recommendations. 7. Continue bronchodilator therapy. 8. Follow-up with gastroenterology regarding worsening hyperbilirubinemia IMPRESSIONS: 1. Acute combined respiratory failure The patient initially presented to the hospital after being found down unresponsive by family members. He does have reported history of COPD along with a positive toxicology screen at presentation. The patient was notably hypercapnic and was intubated as a consequence of this. The patient's acid-base status has improved with invasive mechanical ventilatory support. He does have evidence of multifocal airspace disease on chest imaging, with Staph aureus and haemophilus influenza isolated on sputum culture. The patient remains on appropriate antimicrobial therapy. Continue current supportive measures. 2. Septic shock Improved. Most likely secondary to presenting pneumonia. The patient has been weaned from vasopressor support and remains hemodynamically stable. Will continue to wean stress dose steroids as tolerated. 3. Multisystem organ failure with coagulopathy Clinical concern for ischemic etiologies for acute liver and kidney failure. Nephrology and gastroenterology are following to assist with medical management. 4. Toxic/metabolic encephalopathy Continue supportive measures as noted above. Hypercapnia has improved with invasive mechanical ventilatory support. However, the patient remains significantly encephalopathic, which is limiting his ability to be extubated. TSH is within normal limits. Ammonia has improved. CT head was unremarkable. EEG was completed with read pending. In light of the patient's unchanged clinical status, will obtain MRI today and await neurology evaluation. 5. History of polysubstance dependency Complicates care, management, recovery and prognosis. Continue supportive measures as outlined above. TIME: 33 minutes of critical care time, independent of procedures, was spent addressing the patient's acute combined respiratory failure, septic shock, multisystem organ failure with coagulopathy, toxic/metabolic encephalopathy, review of all data and collaboration with the care team. Subjective Subjective The patient was seen and examined at bedside this morning. Events from last 24 hours been reviewed. The patient remains on spontaneous mode mechanical ventilation this morning with an FiO2 requirement of 45%. The patient remains neurologically unchanged from previous. The patient did have a fever overnight with a Tmax of 102.9 ?F. He is documented to be overall net +7 L for the hospitalization. Platelet count is stable at 54,000. INR is elevated at 2.8 with a fibrinogen of 88 and D-dimer of 16. Total bili has once again increased to 9.8. EEG was completed yesterday with read pending. Objective Data Objective Data The patient's most recent lab work, culture data and imaging studies have all been personally reviewed. CT chest/abdomen/pelvis demonstrated patchy bilateral airspace disease with diffuse emphysematous changes. Abdominal ultrasound demonstrated mild to moderate ascites without any significant pathology. Sputum culture was positive for MSSA and haemophilus influenza. Surface echocardiogram demonstrated an ejection fraction of 45% with a moderately dilated RV, moderate global RV systolic dysfunction and pulmonary artery systolic pressure of 30 mmHg. Vital Signs: Vital Signs Temp Pulse Resp BP Pulse Ox O2 Del Method O2 Flow Rate 98.4 F 108 H 18 113/80 94 Mechanical Ventilator 95 12/17/23 04:00 12/17/23 06:00 12/17/23 06:00 12/17/23 06:00 12/17/23 06:00 12/17/23 06:00 12/13/23 12:05 FiO2 45 12/17/23 06:00 Oxygen Flow Rate (L/min) 95 Oxygen Delivery Method Mechanical Ventilator Weight: 193 lb 1.999 oz Body Mass Index (BMI) 27.6 Intake & Output: Intake and Output for Last 24 Hours 12/15/23 12/16/23 12/17/23 23:59 23:59 23:59 Intake Total 1122.29 / 1246.79 1237.20 / 1237.20 60 / 60 Output Total 2555 / 2705 1830 / 1830 405 / 405 Balance -1432.71 / -1458.21 -592.80 / -592.80 -345 / -345 Lab / Micro Data Attestation: I reviewed the patient's lab results. 12/17/23 02:49 12/17/23 02:49 Labs: Laboratory Results - last 24 hr 12/16/23 03:30: Diff Path Review Reviewed 12/16/23 07:50: Ammonia 42.0 H, TSH 0.44 12/16/23 11:10: POC Glucose 221 H 12/16/23 17:07: POC Glucose 208 H 12/16/23 23:16: POC Glucose 204 H 12/17/23 02:49: WBC 12.5 H, RBC 2.80 L, Hgb 8.9 L, Hct 25.8 L, MCV 92.1, MCH 31.8, MCHC 34.5, RDW Std Deviation 49.6 H, RDW Coeff of Elaine 15.6 H, Plt Count 54 L, MPV 12.7 H, Immature Gran % (Auto) 1.900 H, Neut % (Auto) 80.2 H, Lymph % (Auto) 7.1 L, [place] % (Auto) 10.6 H, Eos % (Auto) 0.0, Baso % (Auto) 0.2, Absolute Neuts (auto) 10.0 H, Absolute Lymphs (auto) 0.89, Nucleated RBC % 1.1, PT 29.6 H, INR 2.8, APTT 40.1 H, Fibrinogen 88 L*, D-Dimer Quant (PE/DVT) 16.66 H*, Sodium 136, Potassium 5.2 H, Chloride 103, Carbon Dioxide 25.0, Anion Gap 8, BUN 99 H, Creatinine 4.03 H, Estim Creat Clear Calc 22.63, Est GFR (MDRD) Af Amer 20 L, Est GFR (MDRD) Non-Af 16 L, BUN/Creatinine Ratio 24.6 H, Glucose 242 H, Calcium 7.1 L, Phosphorus 5.1 H, Magnesium 2.4, Total Bilirubin 9.80 H, AST 101 H, ALT 224 H, Alkaline Phosphatase 60, Total Protein 4.3 L, Albumin 1.9 L, Globulin 2.4, Albumin/Globulin Ratio 0.8 L 12/17/23 05:16: POC Glucose 231 H Micro: Microbiology 12/14/23 09:45 Blood Culture (Wb) - Right Forearm Blood Culture - Preliminary No growth in 48 hours. 12/14/23 09:35 Blood Culture (Wb) - Pic Blood Culture - Preliminary No growth in 48 hours. 12/14/23 09:25 Urine Catheter - Landry Urine Culture - Final Culture exhibits no growth. 12/14/23 09:02 Sputum, Induced/Lukens Gram Stain - Final 12/14/23 09:02 Sputum, Induced/Lukens Respiratory Culture - Final Presumptive C albicans 12/10/23 20:50 Blood Culture (Wb) - Anticubital Right Blood Culture - Final No growth in 5 days. 12/10/23 20:50 Blood Culture (Wb) - Anticubital Left Blood Culture - Final No growth in 5 days. 12/10/23 Unknown Sputum, Induced/Lukens Gram Stain - Final 12/10/23 Unknown Sputum, Induced/Lukens Respiratory Culture - Final Staphylococcus aureus Haemophilus influenzae 12/10/23 20:50 Urine Catheter - Landry Urine Culture - Final Culture exhibits no growth. 12/10/23 20:50 Mucosa - Nose SARS-CoV-2, Influenza & RSV (PCR) - Final ABG Data ABG results: ABG 12/16/23 09:18 Specimen Type ART Sample Site L Radial pH 7.32 L Bicarbonate Actual 26.5 H Total CO2 28 Base Excess 0 O2 Saturation 93 L O2 % 40.0 ABG pCO2 51.7 H ABG pO2 73 L Yong Test Positive O2 Delivery Device Adult Vent Vent Mode CPAP/PS POC PEEP 5 Radiography Diagnostic Testing: Radiology Impression Venous Doppler Study 12/13/23 09:08 Interpretation Summary Deep veins of the bilateral lower extremities are patent and compressible segmentally. There is no evidence of bilateral lower extremity deep vein thrombosis. The bilateral great saphenous veins appear patent and compressible segmentally. Ordering Physician: Singh Recinos Referring Physician: Aleksander Moyer Performed By: Albert Teague RVT Physical Exam Const Constitutional Narrative: Intubated, sedated and mechanically ventilated. No ventilator dyssynchrony noted. General Appearance: lethargic, ill appearing and patient mechanically ventilated HEENT normocephalic and head/scalp atraumatic Mouth: endotracheal tube in place and OG tube in place Eyes PERRL Neck supple General: trachea midline Chest inspection of chest normal Resp normal respiratory effort Auscultation: diminished lung sounds; Negative for rales, rhonchi or wheezes Cardio regular rate and regular rhythm GI normal to inspection, nondistended, normoactive bowel sounds Extremity General Extremity: edema bilateral lower extremity; Negative for clubbing Skin no rashes or lesions noted Neuro Neuro Narrative: Currently without any form of sedation. Will not follow any commands. No change from previous. Charges/Coding Procedures Hospitalists Procedures: 12117 Critical Care 1st Hr
--- NOTE | 2023-12-17 07:10 | MRI_ITS ---
STUDY: MRI BRAIN WITHOUT CONTRAST REASON FOR EXAM: Male, 58 years old. Encephalopathy TECHNIQUE: Standardized multiplanar fat and water weighted pulse sequences were obtained. COMPARISON: Head CT dated December 15, 2023 FINDINGS: There is mild cerebral atrophy with widening of the extra-axial spaces and ventricular dilatation. There are a limited number of small white matter hyperintensities, distributed throughout the deep white matter tracts of the cerebral hemispheres, consistent with mild chronic white matter ischemic changes. There is no evidence for recent intracranial ischemia or other cause of cytotoxic edema on diffusion weighted imaging (DWI). Normal T2* images of the brain without demonstrated susceptibility artifact. There is no demonstrated hemosiderin stain. There are no demyelinating plagues of the supratentorial brain, brainstem or cerebellum. There are no findings suspicious for multiple sclerosis (MS). No hydrocephalus or midline shift is present. There are severe opacification of bilateral mastoid air cells consistent with mastoiditis. Normal bilateral basal ganglia. Normal thalami. There is no extra-axial fluid accumulation. Normal flow voids within the major intracranial circulation suggesting patency by spin echo criteria. Normal sella turcica, pituitary gland, infundibular stalk, optic chiasm and hypothalamus. Normal tectal plate and pineal gland. Normal midbrain, juan and medulla. Normal cerebellum. Normal basal cisterns. Normal bilateral temporal bones. Normal bilateral internal auditory canals. No demonstrated orbital abnormality, within the constraints of a routine brain study. Normal visualized paranasal sinuses. Normal calvarium and skull base. Normal visualized soft tissue structures. Normal visualized upper cervical spine. MRI/Brain without Contrast IMPRESSION: 1. Mild chronic ischemic changes of the brain, as described above. 2. Severe bilateral mastoiditis. Electronically Signed: Levy Navarro MD at 15:33 EDT ,
[2023-12-17] MEDS: PureFlow B 2K Dialysis Soln 1 BAG 6 BAG PF (07:46)
[2023-12-17] MEDS: 0.9% Normal Saline 1,000 ML IV.SOLN. 1000 ML OPERA.SITE (07:46)
--- NOTE | 2023-12-17 08:40 | RAD_ITS ---
STUDY: X-RAY - ABDOMEN/PELVIS REASON FOR EXAM: Male, 58 years old. Abdominal Pain TECHNIQUE: Single AP view of the abdomen / pelvis. COMPARISON: Comparison is made with prior study dated December 14, 2023. FINDINGS: The tip of the orogastric tube is in the mid body of the stomach. Stable mild dilatation of the cecum with thickened haustral pattern. The visualized liver, spleen and kidneys are grossly normal in size and morphology. A catheter is seen within the lateral. There are degenerative changes of the visualized lumbar spine. RAD/Abdomen Single View (Portable) IMPRESSION: Mildly dilated cecum with thickening of the Coleen pattern. A catheter is seen within the urinary bladder. The tip of the orogastric tube is within the midportion of the body of the stomach. Electronically Signed: Sumit Mcknight MD at 9:41 EDT ,
--- NOTE | 2023-12-17 09:55 | CASEMGMT ---
Social Work SW spoke w/physician during rounds this morning, he would like to have a family meeting. SW called pt's sister Asia, meeting set up for 9am. She will call me back if this does not work for them. Physician notified. JANET Greene
[2023-12-17] MEDS: Heparin 10,000 UNITS/10 ML Vial IV (10:02)
[2023-12-17] MEDS: Folic Acid 1 MG Tablet GT (10:21)
[2023-12-17] MEDS: Pantoprazole Sodium 40 MG in 0.9% Normal Saline (100mL MB+) 100 ML 330 MG IV ×2 (10:21→20:26)
[2023-12-17] MEDS: Thiamine Hydrochloride 100 MG Tablet GT (10:22)
[2023-12-17] MEDS: Chlorhexidine 15 ML PO ×2 (10:22→20:29)
[2023-12-17] MEDS: Senna/Docusate Sodium 1 Tablet 2 TABLET GT ×2 (10:22→20:26)
[2023-12-17] MEDS: Ceftriaxone 1 GM/50 ML BAG IV (10:33)
--- NOTE | 2023-12-17 10:33 | NUR.TO.PHY ---
Pt did not tolerate much fluid removal with dialysis today. Fluid removal rate was reduced multiple times, but blood pressure continued to trend down into the 80s systolic. Discussed with nephrology, and discontinued attempt to remove fluid during treatment. Pt bp continued to trend down into the 70s systolic even without fluid removal. Discussed with the news reporter and decision was made to discontinue this dialysis treatment early. Pt received @ 2.5 hours of his scheduled 4hr treatment. Was only able to remove 1180ml of the ordered 4L fluid removal. Discussed difficulty in removing fluid with the cattle tester during morning rounds. Approximately 200ml NS given with blood return post treatment with no significant impact on blood pressure.
[2023-12-17] MEDS: Insulin Glargine-YFGN 100 UNIT/ML Pen 15 UNIT SC (11:11)
--- NOTE | 2023-12-17 11:27 | CASEMGMT ---
Social Work Pt's sister Asia called back asking if pt's brother's step son and his girlfriend can come in to be part of the meeting tomorrow also. SW explained it may be better for just immediate family to be part of the meeting, but they can certainly come in to visit and be a support to pt's brother. [place] states understanding. JANET Greene
--- NOTE | 2023-12-17 11:43 | NEURO.CONS ---
Assessment and Plan: Neuro Assessment/Plan RONNIE KATZ is a 58 M with COPD and polysubstance use admitted to the MICU with unresponsiveness and acute respiratory failure in the setting of polysubstance use, septic shock secondary to H.influenza and MSSA PNA, SIGRID/ATN requiring dialysis, shock liver, hyperammonemia. Teleneurology consulted for encephalopathy. EEG with no epileptic activities or seizures. Diagnosis: Toxic metabolic encephalopathy in the setting of above medical issues Given septic shock, will obtain MRI brain to rule out any brain insult in the setting of shock Recommendations: [ ] MRI brain I personally attended this patient and spent a total time of 40 minutes evaluating this patient including clinical assessment, review of chart, medical history imaging, and determining appropriate treatment and workup. HPI Consult Data Date of Consult: 12/17/23 HPI Narrative HPI Narrative: 58 yo man with COPD, polysubstance use who was admitted on 12/09 with unresponsiveness and acute respiratory failure in the setting of polysubstance use (Utox + for benzos, Marijuana and ecstasy), septic shock secondary to H.influenza and MSSA PNA, SIGRID/ATN requiring dialysis, Transaminitis with AST 3585, ALT 972 GI following thought to be ischemic in nature, hyperammonemia (135), hyperCKemia. EEG with severe diffuse encephalopathy CTH 12/14 with no acute findings Off of sedation and off pressers since Saturday [facility]renl[facility]ri[facility]one [facility] Medical History (Updated 12/16/23 @ 09:[address] Julia Murry, DO) COPD (chronic obstructive pulmonary disease) Medical History unable to obtain Home Medications sertraline 100 mg tablet 200 mg PO DAILY depression 09/04/20 [History Last Taken 09/03/20 09:00] albuterol 90 mcg/actuation aerosol inhaler 90 mcg inhalation Q4H PRN wheezing/SOB 12/16/23 [History Last Taken Unknown] aripiprazole 2 mg tablet (Abilify) 2 mg PO DAILY depression 12/16/23 [History Last Taken Unknown] fluticasone fur. 100 mcg-umeclid 62.5 mcg-vilant 25 mcg inhalat.powder (Trelegy Ellipta) 1 inh inhalation DAILY wheezing/SOB 12/16/23 [History Last Taken Unknown] nicotine (polacrilex) 4 mg gum (Nicorette) 4 mg buccal Q2H nicotine 12/16/23 [History Last Taken Unknown] Allergy/AdvReac Type Severity Reaction Status Date / Time No Known Allergies Allergy Verified 12/10/23 21:31 Family History unable to obtain Surgical History unable to obtain Social History Smoking Status: Unknown if ever smoked Vital Signs Vital Signs Vital Signs: 12/16/23 12:00 12/16/23 13:00 12/16/23 14:39 Temperature 99.3 F H Temperature Source Temporal Pulse Rate 117 H 119 H 120 H Pulse Strength Respiratory Rate 19 H 21 H 20 H Respiratory Effort Respiratory Depth Respiratory Pattern Tachypnea Blood Pressure 103/73 118/82 H Blood Pressure Mean 81 93 Blood Pressure Source Monitor Monitor Blood Pressure Position Semi-Fowlers Semi-Fowlers Blood Pressure Location Left Arm Left Arm Pulse Ox 92 93 Oxygen Delivery Method Mechanical Ventilator Fraction of Inspired Oxygen (FIO2) 40 40 12/16/23 14:39 12/16/23 14:00 12/16/23 15:00 Temperature 99.6 F H Temperature Source Temporal Pulse Rate 120 H 122 H 124 H Pulse Strength Respiratory Rate 21 H 22 H 23 H Respiratory Effort Respiratory Depth Respiratory Pattern Blood Pressure 129/81 H 126/86 H Blood Pressure Mean 96 96 Blood Pressure Source Monitor Monitor Blood Pressure Position Semi-Fowlers Semi-Fowlers Blood Pressure Location Left Arm Left Arm Pulse Ox 90 91 90 Oxygen Delivery Method Mechanical Ventilator Mechanical Ventilator Fraction of Inspired Oxygen (FIO2) 40 40 40 12/16/23 15:29 12/16/23 15:36 12/16/23 16:00 Temperature Temperature Source Pulse Rate 123 H Pulse Strength Respiratory Rate 19 H Respiratory Effort Normal Non-Labored Mechanically Ventilated Respiratory Depth Normal Respiratory Pattern Normal Blood Pressure 138/85 H Blood Pressure Mean 102 Blood Pressure Source Monitor Blood Pressure Position Semi-Fowlers Blood Pressure Location Left Arm Pulse Ox 88 92 Oxygen Delivery Method Mechanical Ventilator Mechanical Ventilator Mechanical Ventilator Fraction of Inspired Oxygen (FIO2) 40 45 45 12/16/23 17:06 12/16/23 17:00 12/16/23 18:00 Temperature Temperature Source Pulse Rate 122 H 122 H 123 H Pulse Strength Respiratory Rate 23 H 21 H 23 H Respiratory Effort Respiratory Depth Respiratory Pattern Blood Pressure 116/77 133/78 H Blood Pressure Mean 87 90 Blood Pressure Source Monitor Monitor Blood Pressure Position Semi-Fowlers Semi-Fowlers Blood Pressure Location Left Arm Left Arm Pulse Ox 92 91 92 Oxygen Delivery Method Mechanical Ventilator Mechanical Ventilator Fraction of Inspired Oxygen (FIO2) 45 45 45 12/16/23 19:05 12/16/23 19:05 12/16/23 19:00 Temperature 100.3 F H Temperature Source Axillary Pulse Rate 126 H 124 H 125 H Pulse Strength Respiratory Rate 23 H 22 H 21 H Respiratory Effort Respiratory Depth Respiratory Pattern Tachypnea Tachypnea Blood Pressure 121/72 H Blood Pressure Mean 88 Blood Pressure Source Monitor Blood Pressure Position Semi-Fowlers Blood Pressure Location Left Arm Pulse Ox 92 93 Oxygen Delivery Method Mechanical Ventilator Fraction of Inspired Oxygen (FIO2) 45 45 12/16/23 19:53 12/16/23 19:54 12/16/23 20:00 Temperature Temperature Source Pulse Rate 124 H Pulse Strength Weak (1+) Respiratory Rate 24 H Respiratory Effort Normal Non-Labored Mechanically Ventilated Respiratory Depth Normal Respiratory Pattern Normal Blood Pressure 112/74 Blood Pressure Mean 86 Blood Pressure Source Monitor Blood Pressure Position Semi-Fowlers Blood Pressure Location Left Arm Pulse Ox 93 Oxygen Delivery Method Mechanical Ventilator Mechanical Ventilator Fraction of Inspired Oxygen (FIO2) 45 45 12/16/23 21:00 12/16/23 22:00 12/16/23 22:46 Temperature 102.9 F H 101.9 F H Temperature Source Rectal Rectal Pulse Rate 120 H 112 H 109 H Pulse Strength Respiratory Rate 19 H 19 H 18 Respiratory Effort Respiratory Depth Respiratory Pattern Normal Blood Pressure 109/80 93/69 Blood Pressure Mean 89 77 Blood Pressure Source Monitor Monitor Blood Pressure Position Semi-Fowlers Semi-Fowlers Blood Pressure Location Left Arm Left Arm Pulse Ox 93 94 Oxygen Delivery Method Mechanical Ventilator Mechanical Ventilator Fraction of Inspired Oxygen (FIO2) 45 45 12/16/23 22:46 12/16/23 23:00 12/16/23 23:29 Temperature Temperature Source Pulse Rate 109 H 106 H Pulse Strength Respiratory Rate 18 18 Respiratory Effort Normal Non-Labored Mechanically Ventilated Respiratory Depth Normal Respiratory Pattern Normal Normal Blood Pressure 84/62 L Blood Pressure Mean 69 Blood Pressure Source Monitor Blood Pressure Position Semi-Fowlers Blood Pressure Location Left Arm Pulse Ox 96 96 Oxygen Delivery Method Mechanical Ventilator Mechanical Ventilator Fraction of Inspired Oxygen (FIO2) 45 45 45 12/17/23 00:00 12/17/23 01:00 12/17/23 02:00 Temperature 97.7 F L Temperature Source Rectal Pulse Rate 104 H 100 96 Pulse Strength Respiratory Rate 18 18 18 Respiratory Effort Respiratory Depth Respiratory Pattern Blood Pressure 114/80 94/71 96/66 Blood Pressure Mean 91 78 76 Blood Pressure Source Monitor Monitor Monitor Blood Pressure Position Semi-Fowlers Semi-Fowlers Semi-Fowlers Blood Pressure Location Left Arm Left Arm Left Arm Pulse Ox 97 96 96 Oxygen Delivery Method Mechanical Ventilator Mechanical Ventilator Mechanical Ventilator Fraction of Inspired Oxygen (FIO2) 45 45 45 12/17/23 01:26 12/17/23 03:14 12/17/23 03:00 Temperature Temperature Source Pulse Rate 100 101 H 101 H Pulse Strength Respiratory Rate 18 18 18 Respiratory Effort Respiratory Depth Respiratory Pattern Normal Normal Blood Pressure 123/79 H Blood Pressure Mean 93 Blood Pressure Source Monitor Blood Pressure Position Semi-Fowlers Blood Pressure Location Left Arm Pulse Ox 96 95 Oxygen Delivery Method Mechanical Ventilator Fraction of Inspired Oxygen (FIO2) 45 45 12/17/23 03:35 12/17/23 03:55 12/17/23 04:00 Temperature 98.4 F Temperature Source Rectal Pulse Rate 107 H 105 H Pulse Strength Respiratory Rate 19 H 18 Respiratory Effort Normal Non-Labored Mechanically Ventilated Respiratory Depth Normal Respiratory Pattern Normal Normal Blood Pressure 106/77 Blood Pressure Mean 86 Blood Pressure Source Monitor Blood Pressure Position Semi-Fowlers Blood Pressure Location Left Arm Pulse Ox 95 95 Oxygen Delivery Method Mechanical Ventilator Mechanical Ventilator Fraction of Inspired Oxygen (FIO2) 45 45 45 12/17/23 05:00 12/17/23 05:00 12/17/23 05:00 Temperature Temperature Source Pulse Rate 104 H 103 H Pulse Strength Respiratory Rate 18 15 15 Respiratory Effort Respiratory Depth Respiratory Pattern Normal Blood Pressure 100/79 Blood Pressure Mean 86 Blood Pressure Source Monitor Blood Pressure Position Semi-Fowlers Blood Pressure Location Left Arm Pulse Ox 95 95 Oxygen Delivery Method Mechanical Ventilator Fraction of Inspired Oxygen (FIO2) 45 12/17/23 06:00 12/17/23 06:55 12/17/23 06:55 Temperature Temperature Source Pulse Rate 108 H 110 H 110 H Pulse Strength Respiratory Rate 18 21 H 19 H Respiratory Effort Respiratory Depth Respiratory Pattern Normal Normal Blood Pressure 113/80 Blood Pressure Mean 91 Blood Pressure Source Monitor Blood Pressure Position Semi-Fowlers Blood Pressure Location Left Arm Pulse Ox 94 93 Oxygen Delivery Method Mechanical Ventilator Fraction of Inspired Oxygen (FIO2) 45 12/17/23 07:30 12/17/23 07:44 04/23/24 07:00 Temperature 98.9 F Temperature Source Temporal Pulse Rate 107 H 107 H 107 H Pulse Strength Respiratory Rate 16 16 14 Respiratory Effort Mechanically Ventilated Respiratory Depth Respiratory Pattern Blood Pressure 112/74 104/75 104/75 Blood Pressure Mean 86 84 84 Blood Pressure Source Monitor Monitor Monitor Blood Pressure Position Semi-Fowlers Semi-Fowlers Semi-Fowlers Blood Pressure Location Left Arm Left Arm Left Arm Pulse Ox 95 95 95 Oxygen Delivery Method Mechanical Ventilator Mechanical Ventilator Mechanical Ventilator Fraction of Inspired Oxygen (FIO2) 45 45 12/17/23 07:59 12/17/23 08:14 12/17/23 08:15 Temperature Temperature Source Pulse Rate 108 H 107 H 107 H Pulse Strength Respiratory Rate 19 H 14 18 Respiratory Effort Respiratory Depth Respiratory Pattern Blood Pressure 85/68 L 86/72 L 86/71 L Blood Pressure Mean 73 76 76 Blood Pressure Source Monitor Monitor Monitor Blood Pressure Position Semi-Fowlers Semi-Fowlers Semi-Fowlers Blood Pressure Location Left Arm Left Arm Left Arm Pulse Ox 95 96 95 Oxygen Delivery Method Mechanical Ventilator Bi-pap Mechanical Ventilator Fraction of Inspired Oxygen (FIO2) 45 12/17/23 08:29 12/17/23 08:41 12/17/23 08:56 Temperature Temperature Source Pulse Rate 106 H 106 H 107 H Pulse Strength Respiratory Rate 14 17 17 Respiratory Effort Respiratory Depth Respiratory Pattern Blood Pressure 82/71 L 82/64 L 91/73 Blood Pressure Mean 74 70 79 Blood Pressure Source Monitor Monitor Monitor Blood Pressure Position Semi-Fowlers Semi-Fowlers Semi-Fowlers Blood Pressure Location Left Arm Left Arm Left Arm Pulse Ox 96 97 96 Oxygen Delivery Method Mechanical Ventilator Mechanical Ventilator Mechanical Ventilator Fraction of Inspired Oxygen (FIO2) 45 45 45 12/17/23 08:00 12/17/23 08:00 12/17/23 09:00 Temperature 97.6 F L Temperature Source Temporal Pulse Rate 107 H 106 H Pulse Strength Respiratory Rate 17 16 Respiratory Effort Mechanically Ventilated Respiratory Depth Normal Respiratory Pattern Normal Blood Pressure 82/64 L 89/70 L Blood Pressure Mean 70 76 Blood Pressure Source Monitor Monitor Blood Pressure Position Semi-Fowlers Semi-Fowlers Blood Pressure Location Left Arm Left Arm Pulse Ox 96 96 Oxygen Delivery Method Mechanical Ventilator Mechanical Ventilator Mechanical Ventilator Fraction of Inspired Oxygen (FIO2) 45 45 12/17/23 09:15 12/17/23 09:27 12/17/23 09:45 Temperature Temperature Source Pulse Rate 104 H 100 101 H Pulse Strength Respiratory Rate 18 13 20 H Respiratory Effort Respiratory Depth Respiratory Pattern Blood Pressure 80/57 L 81/68 L 73/61 L Blood Pressure Mean 64 72 65 Blood Pressure Source Monitor Monitor Monitor Blood Pressure Position Semi-Fowlers Semi-Fowlers Semi-Fowlers Blood Pressure Location Left Arm Left Arm Left Arm Pulse Ox 97 98 98 Oxygen Delivery Method Mechanical Ventilator Mechanical Ventilator Mechanical Ventilator Fraction of Inspired Oxygen (FIO2) 45 45 12/17/23 09:50 12/17/23 10:18 12/17/23 10:00 Temperature Temperature Source Pulse Rate 102 H 102 H 100 Pulse Strength Respiratory Rate 21 H 21 H 15 Respiratory Effort Mechanically Ventilated Respiratory Depth Respiratory Pattern Blood Pressure 75/62 L 78/61 L 74/51 L Blood Pressure Mean 66 66 58 Blood Pressure Source Monitor Monitor Monitor Blood Pressure Position Semi-Fowlers Supine Semi-Fowlers Blood Pressure Location Left Arm Left Arm Left Arm Pulse Ox 98 97 99 Oxygen Delivery Method Mechanical Ventilator Mechanical Ventilator Mechanical Ventilator Fraction of Inspired Oxygen (FIO2) 45 12/17/23 11:00 12/17/23 11:36 12/17/23 11:36 Temperature Temperature Source Pulse Rate 104 H 103 H 103 H Pulse Strength Respiratory Rate 16 20 H 19 H Respiratory Effort Respiratory Depth Respiratory Pattern Normal Normal Blood Pressure 102/66 Blood Pressure Mean 78 Blood Pressure Source Monitor Blood Pressure Position Semi-Fowlers Blood Pressure Location Left Arm Pulse Ox 95 96 Oxygen Delivery Method Mechanical Ventilator Fraction of Inspired Oxygen (FIO2) 45 45 Weight Weight: 86.5 kg Body Mass Index (BMI) 27.3 EEG Results Procedure Details EEG Procedure Details: Inpatient routine EEG report performed at [facility] Study start time: 1324 on 12/16/23 End Time: 1344 on 12/16/23 History: rule out seizures Indication: rule out seizures Technical Description: This is a 18-channel digital EEG recording with time-locked video and single-channel electrocardiogram. Electrodes are placed according to the 10 to 20 International System. The patient was monitored continuously by EEG technicians and EEG recording was reviewed intermittently with annotations to the EEG record. Portions of this record are reviewed using bandpass filters of 1 to 70 Hz and sensitivity of 7mV/mm. EEG DESCRIPTION Background: This recording was obtained during sleep-like state. There is generalized continuous slowing of delta activity, at times with triphasic morphology, intermixed with theta frequencies. Normal sleep structures were not seen. Activation Procedures: Photic stimulation was performed. No abnormal or epileptic activity was triggered by these procedures. Sporadic Epileptiform Discharges: none Focal slow activity: none Rhythmic or Periodic activity: none Seizures: none Patient Events: none EEG DIAGNOSIS: Encephalopathy CLINICAL INTERPRETATION This abnormal EEG is consistent with severe diffuse encephalopathy. No epileptiform discharges or lateralizing signs were seen. Physical Exam Narrative Poor exam. Intubated, off sedation. Open eyes to verbal stim. Does not follow commands. Pupillary, corneals, cough, gag reflexes present. In response to nox stim, he opens his eyes but does not withdraw. Lab / Micro Data 12/17/23 02:49 12/17/23 02:49 Labs: Laboratory Results - last 24 hr 12/16/23 03:30: Diff Path Review Reviewed 12/16/23 11:10: POC Glucose 221 H 12/16/23 17:07: POC Glucose 208 H 12/16/23 23:16: POC Glucose 204 H 12/17/23 02:49: WBC 12.5 H, RBC 2.80 L, Hgb 8.9 L, Hct 25.8 L, MCV 92.1, MCH 31.8, MCHC 34.5, RDW Std Deviation 49.6 H, RDW Coeff of Elaine 15.6 H, Plt Count 54 L, MPV 12.7 H, Immature Gran % (Auto) 1.900 H, Neut % (Auto) 80.2 H, Lymph % (Auto) 7.1 L, Norton % (Auto) 10.6 H, Eos % (Auto) 0.0, Baso % (Auto) 0.2, Absolute Neuts (auto) 10.0 H, Absolute Lymphs (auto) 0.89, Nucleated RBC % 1.1, PT 29.6 H, INR 2.8, APTT 40.1 H, Fibrinogen 88 L*, D-Dimer Quant (PE/DVT) 16.66 H*, Sodium 136, Potassium 5.2 H, Chloride 103, Carbon Dioxide 25.0, Anion Gap 8, BUN 99 H, Creatinine 4.03 H, Estim Creat Clear Calc 22.63, Est GFR (MDRD) Af Amer 20 L, Est GFR (MDRD) Non-Af 16 L, BUN/Creatinine Ratio 24.6 H, Glucose 242 H, Calcium 7.1 L, Phosphorus 5.1 H, Magnesium 2.4, Total Bilirubin 9.80 H, AST 101 H, ALT 224 H, Alkaline Phosphatase 60, Total Protein 4.3 L, Albumin 1.9 L, Globulin 2.4, Albumin/Globulin Ratio 0.8 L 12/17/23 05:16: POC Glucose 231 H Micro: Microbiology 12/14/23 09:45 Blood Culture (Wb) - Right Forearm Blood Culture - Preliminary No growth in 48 hours. 12/14/23 09:35 Blood Culture (Wb) - Pic Blood Culture - Preliminary No growth in 48 hours. 12/14/23 09:25 Urine Catheter - Landry Urine Culture - Final Culture exhibits no growth. 12/14/23 09:02 Sputum, Induced/Lukens Gram Stain - Final 12/14/23 09:02 Sputum, Induced/Lukens Respiratory Culture - Final Presumptive C albicans Imaging Radiology Impression Venous Doppler Study 12/13/23 09:08 Interpretation Summary Deep veins of the bilateral lower extremities are patent and compressible segmentally. There is no evidence of bilateral lower extremity deep vein thrombosis. The bilateral great saphenous veins appear patent and compressible segmentally. Ordering Physician: Singh Recinos Referring Physician: Aleksander Moyer Performed By: Albert Teague, T X-Ray 12/17/23 08:40 IMPRESSION: Mildly dilated cecum with thickening of the Coleen pattern. A catheter is seen within the urinary bladder. The tip of the orogastric tube is within the midportion of the body of the stomach. Electronically Signed: Sumit Mcknight MD at 9:41 EDT , Active Medications Active Medications Active Medications: Current Medications Generic Name Dose Route Start Last Admin Trade Name Freq PRN Reason Stop Dose Admin Albuterol/Ipratropium 3 ml 12/11/23 06:00 12/17/23 11:36 Ipratropium/Albuterol Sulfate 3 Ml Ampul.Neb INHALATION 3 ml Q4H.RT FANY Administration Chlorhexidine Gluconate 15 ml 12/11/23 10:00 12/17/23 10:22 Chlorhexidine 15 Ml PO 15 ml BID FANY Administration Chlorhexidine Gluconate 1 each 12/12/23 10:00 12/17/23 05:16 Chlorhexidine Gluc 2% Cloth 1 Each Towelette TOPICAL 1 each DAILY FANY Administration Fentanyl Citrate 50 mcg 12/11/23 04:41 Fentanyl 100 Mcg/2 Ml Ampul IV Q2H PRN PRN Pain >/= 4/10 or CPOT>/= 3/8 Folic Acid 1 mg 12/16/23 10:00 12/17/23 10:21 Folic Acid 1 Mg Tablet GT 1 mg BREAKFAST FANY Administration Hemodialysis Solution 6 bag 12/17/23 07:00 12/17/23 07:46 Pureflow B 2k Dialysis Soln 1 Bag PF 12/17/23 19:01 6 bag UD FANY Administration Protocol Heparin Sodium (Porcine) 2,500 units 12/13/23 10:16 12/14/23 10:33 Heparin 10,000 Units/10 Ml Vial IV 2,500 units UD PRN Administration Dialysis Cath Heparin Flush Heparin Sodium (Porcine) 1,000 - 3,000 units 12/17/23 07:00 12/17/23 10:02 Heparin 10,000 Units/10 Ml Vial IV 12/17/23 19:01 1,600 units X1 PRN Administration HD catheter closing Hydrocortisone Sodium Succinate 50 mg 12/18/23 10:00 Hydrocortisone Sod Succinate 100 Mg/2 Ml Vial IV DAILY FANY Sodium Chloride 250 mls @ 15 mls/hr 12/11/23 01:50 IV .[id number] PRN Additional IVPB Infusion Sodium Chloride 250 mls @ 15 mls/hr 12/11/23 01:50 12/16/23 11:54 IV 0 mls/hr .[id number] PRN Infusion Saline Flush Pantoprazole Sodium 40 mg/ 110 mls @ 330 mls/hr 12/12/23 10:00 12/17/23 10:57 Sodium Chloride IV Infused Q12 FANY Infusion Enteral Nutritional Formula 1,000 mls @ 10 mls/hr 12/12/23 10:05 12/16/23 12:50 Vital Af 1.2 Nicholas Liquid GT 0 mls/hr .Q48H FANY Infusion Ceftriaxone Sodium 1 gm in 50 mls @ 100 mls/hr 12/16/23 10:00 12/17/23 11:07 Rocephin IV 12/20/23 10:01 Infused Q24 FANY Infusion Insulin Glargine 15 unit 12/16/23 10:00 12/17/23 11:11 Insulin Glargine-Yfgn 100 Unit/Ml Pen SC 15 unit DAILY FANY Administration Insulin Human Lispro 0 unit 12/12/23 00:00 12/17/23 11:11 Insulin Lispro 100 Unit/Ml Insuln.Pen SC 1 u Q6 FANY Administration Protocol Lactulose 20 gm 12/13/23 09:10 12/17/23 05:16 Lactulose 20 Gm/30 Ml Udc PO 20 gm TID FANY Administration Metoclopramide HCl 10 mg 12/16/23 14:00 12/17/23 05:16 Metoclopramide 10 Mg/2 Ml Vial IV 10 mg TID FANY Administration Senna/Docusate Sodium 2 tablet 12/12/23 10:00 12/17/23 10:22 Senna/Docusate Sodium 1 Tablet GT 2 tablet BID FANY Administration Sodium Chloride 10 - 40 ml 12/11/23 01:50 12/17/23 10:21 0.9% Saline Lock 10 Ml Syringe IV 10 ml UD PRN Administration SALINE FLUSH Sodium Chloride 10 ml 12/13/23 10:16 0.9% Saline Lock 10 Ml Syringe IV UD PRN Dialysis Catheter Flush Sodium Chloride 1,000 ml 12/17/23 07:00 12/17/23 07:46 0.9% Normal Saline 1,000 Ml Iv.Soln. OPERA.SITE 12/17/23 19:01 1,000 ml X1 FANY Administration Sodium Chloride 200 ml 12/17/23 07:00 0.9% Normal Saline 1,000 Ml Iv.Soln. IV 12/17/23 19:01 X1 PRN to maintain SBP >90mmHg during Dialysis Thiamine HCl 100 mg 12/16/23 10:00 12/17/23 10:22 Thiamine Hydrochloride 100 Mg Tablet GT 100 mg BREAKFAST FANY Administration
[2023-12-17 12:19] LABS: Bedside Glucose 174 mg/dL (74-106)
--- NOTE | 2023-12-17 13:10 | PCM.PN.HOSP ---
Reason for Visit Reason for Visit: Unresponsiveness Subjective Subjective Patient remains intubated without significant sedation and no meaningful interaction. Does move intermittently spontaneously but no purposeful movement. EEG read is pending. MRI ordered for later today. Family meeting set up for tomorrow. No bowel movement yet despite lactulose and enema given Objective Data Objective Data Vital Signs: Vital Signs Temp Pulse Resp BP Pulse Ox O2 Del Method O2 Flow Rate 98.1 F 110 H 19 H 95/74 92 Mechanical Ventilator 95 12/17/23 13:00 12/17/23 13:00 12/17/23 13:00 12/17/23 13:00 12/17/23 13:00 12/17/23 13:00 12/13/23 12:05 FiO2 40 12/17/23 13:00 Oxygen Flow Rate (L/min) 95 Oxygen Delivery Method Mechanical Ventilator Weight: 86.5 kg Body Mass Index (BMI) 27.3 Intake & Output: Intake and Output for Last 24 Hours 12/15/23 12/16/23 12/17/23 23:59 23:59 23:59 Intake Total 1122.29 / 1246.79 1237.20 / 1237.20 310 / 310 Output Total 2555 / 2705 1830 / 1830 1735 / 1735 Balance -1432.71 / -1458.21 -592.80 / -592.80 -1425 / -1425 Lab / Micro Data 12/17/23 02:49 12/17/23 02:49 Labs: Laboratory Results - last 24 hr 12/16/23 03:30: Diff Path Review Reviewed 12/16/23 11:10: POC Glucose 221 H 12/16/23 17:07: POC Glucose 208 H 12/16/23 23:16: POC Glucose 204 H 12/17/23 02:49: WBC 12.5 H, RBC 2.80 L, Hgb 8.9 L, Hct 25.8 L, MCV 92.1, MCH 31.8, MCHC 34.5, RDW Std Deviation 49.6 H, RDW Coeff of Elaine 15.6 H, Plt Count 54 L, MPV 12.7 H, Immature Gran % (Auto) 1.900 H, Neut % (Auto) 80.2 H, Lymph % (Auto) 7.1 L, [place] % (Auto) 10.6 H, Eos % (Auto) 0.0, Baso % (Auto) 0.2, Absolute Neuts (auto) 10.0 H, Absolute Lymphs (auto) 0.89, Nucleated RBC % 1.1, PT 29.6 H, INR 2.8, APTT 40.1 H, Fibrinogen 88 L*, D-Dimer Quant (PE/DVT) 16.66 H*, Sodium 136, Potassium 5.2 H, Chloride 103, Carbon Dioxide 25.0, Anion Gap 8, BUN 99 H, Creatinine 4.03 H, Estim Creat Clear Calc 22.63, Est GFR (MDRD) Af Amer 20 L, Est GFR (MDRD) Non-Af 16 L, BUN/Creatinine Ratio 24.6 H, Glucose 242 H, Calcium 7.1 L, Phosphorus 5.1 H, Magnesium 2.4, Total Bilirubin 9.80 H, AST 101 H, ALT 224 H, Alkaline Phosphatase 60, Total Protein 4.3 L, Albumin 1.9 L, Globulin 2.4, Albumin/Globulin Ratio 0.8 L 12/17/23 05:16: POC Glucose 231 H 12/17/23 11:10: POC Glucose 174 H Micro: Microbiology 12/14/23 09:45 Blood Culture (Wb) - Right Forearm Blood Culture - Preliminary No growth in 48 hours. 12/14/23 09:35 Blood Culture (Wb) - Pic Blood Culture - Preliminary No growth in 48 hours. 12/14/23 09:25 Urine Catheter - Landry Urine Culture - Final Culture exhibits no growth. 12/14/23 09:02 Sputum, Induced/Lukens Gram Stain - Final 12/14/23 09:02 Sputum, Induced/Lukens Respiratory Culture - Final Presumptive C albicans 12/10/23 20:50 Blood Culture (Wb) - Anticubital Right Blood Culture - Final No growth in 5 days. 12/10/23 20:50 Blood Culture (Wb) - Anticubital Left Blood Culture - Final No growth in 5 days. 12/10/23 Unknown Sputum, Induced/Lukens Gram Stain - Final 12/10/23 Unknown Sputum, Induced/Lukens Respiratory Culture - Final Staphylococcus aureus Haemophilus influenzae 12/10/23 20:50 Urine Catheter - Landry Urine Culture - Final Culture exhibits no growth. 12/10/23 20:50 Mucosa - Nose SARS-CoV-2, Influenza & RSV (PCR) - Final Radiography Diagnostic Testing: Radiology Impression Venous Doppler Study 12/13/23 09:08 Interpretation Summary Deep veins of the bilateral lower extremities are patent and compressible segmentally. There is no evidence of bilateral lower extremity deep vein thrombosis. The bilateral great saphenous veins appear patent and compressible segmentally. Ordering Physician: Singh Recinos Referring Physician: Aleksander Moyer Performed By: Albert Teague, T X-Ray 12/17/23 08:40 IMPRESSION: Mildly dilated cecum with thickening of the Coleen pattern. A catheter is seen within the urinary bladder. The tip of the orogastric tube is within the midportion of the body of the stomach. Electronically Signed: Sumit Mcknight MD at 9:41 EDT , Physical Exam Const no apparent distress and average body habitus; Negative for healthy appearing or well nourished Constitutional Narrative: Middle-aged, white male, lying in bed intubated and sedated, opens eyes intermittently but no purposeful interaction, appears much older than stated age, currently on dialysis with dialysis nurse at the bedside General Appearance: intubated and patient mechanically ventilated HEENT normocephalic, head/scalp atraumatic and moist oral mucous membranes HEENT Narrative: ET tube and OG in place Resp normal respiratory effort, no retractions, no use of accessory muscles and clear to auscultation bilaterally Resp Narrative: Diffusely diminished but clear Auscultation: Negative for crackles, rales, rhonchi or wheezes Cardio regular rate, regular rhythm, S1 normal heart sound, S2 normal heart sound, no murmurs, no rub, no gallops and no clicks Cardio Narrative: Tachycardic GI soft to palpation and non-distended; Negative for hepatosplenomegaly GI Narrative: Mild distention with hypoactive bowel sounds but soft, does not appear to be tender Extremity no clubbing, cyanosis or edema Extremity Narrative: Bilateral upper and lower extremity edema that is pitting in nature, no cyanosis or clubbing, right upper extremity PICC in place Skin skin turgor normal, No no jaundice, no petechiae and no mottling Skin Narrative: Left IJ hemodialysis catheter in place, clean and dry, dressing intact, patient is markedly jaundiced Neuro Neuro Narrative: Spontaneous movement of extremity but no purposeful interaction, does withdraw to noxious stimuli, does not follow any verbal commands, patient has been off sedation for 3 days now Psych Psych Narrative: Unable to assess Appearance: intubated Assessment & Plan Assessment/Plan (1) Acidosis, lactic: (2) Polysubstance abuse: (3) Hyperammonemia: (4) Multi-organ failure with liver failure: (5) Septic shock: (6) Acute hypercapnic respiratory failure: (7) SIGRID (acute kidney injury): (8) Acute hypoxic on chronic hypercapnic respiratory failure: (9) Thrombocytopenia: (10) Anemia: PLAN: Plan Acute hypoxic and hypercapnic respiratory failure secondary to pneumonia/altered mental status -Likely multifactorial with sepsis and positive toxicology screen -Patient was markedly acidotic on presentation with a pCO2 greater than 125 -Vent has been weaned to 40% FiO2 and sats are between 92 and 93%. -Off sedation x 3 days now -Patient does well on his spontaneous breathing trials however his mental status prohibits extubation -[facility] following-appreciate input Septic shock secondary to H. influenzae and MSSA pneumonia/new fever -Blood pressures appear to be stabilizing -Stress dose steroids weaned to 50 mg daily -Currently requiring no pressors -Continue antibiotics through 12/20/2023 -Initial and repeat blood cultures are negative and suspect fever is likely related to central fever at this time -Initial and subsequent urine cultures unremarkable SIGRID secondary to ischemic ATN -Most recent serum creatinine appears from 2020 and was 0.59 -Admission creatinine was 2.98 -Patient has been an uric and HD initiated on 12/13/2023 -HD today -CT without hydronephrosis -Nephrology is following-appreciate input Acute exacerbation of COPD -Management per critical care medicine/pulmonary medicine Acute toxic/metabolic encephalopathy -Ammonia level has resolved to normal -Sedation is off yet patient still without meaningful interaction -EEG shows diffuse severe encephalopathy -MRI of the brain is pending -Will continue lactulose in setting of liver failure Ischemic hepatitis with coagulopathy -INR is still elevated but stable--> labs indicative of possible DIC however with fulminant liver failure not sure that we can see this is definitively diagnosis -AST and ALT are trending down however bilirubin continues to trend up and is currently 9.8 -Highly suspect that this is indicative of liver necrosis -Await further gastroenterology input--> discussed with Dr. Connor by critical care medicine Hyperglycemia with history of hypoglycemia -Likely related to stress as well as stress dose steroids -Increase Lantus to 25 units with a fasting blood sugar at 242 -Continue SSI -Monitor closely with renal dysfunction Thrombocytopenia -Multifactorial -Has stabilized and currently up to 54,000 from 49,000 yesterday -Continue to monitor Leukocytosis -Still elevated but seems to be stabilized -Has had low-grade fevers -Will continue to monitor -Continue antibiotics -Repeat blood cultures are negative Tachycardia -Mild -Likely related to the above -Continue to monitor Anemia -This appears to be new -Hemoglobin is trending down -Stool guaiac is pending Depression-NOS -It is documented he is on aripiprazole and sertraline at home -Continue to hold these and will need to verify Tobacco abuse -Unclear if current amount -Will discuss further if patient able to be extubated DVT prophylaxis -Currently contraindicated chemoprophylaxis due to thrombocytopenia and coagulopathy -Continue SCDs CODE STATUS Full code Charges/Coding Visit Charges Inpatient E&M: 97433 Subs Hosp L2
--- NOTE | 2023-12-17 16:07 | PN.RENAL_ITS ---
Subjective Subjective events noted. some urine output. bilirubin higher. ? DIC Objective Data Objective Data Vital Signs: Vital Signs Temp Pulse Resp BP Pulse Ox O2 Del Method O2 Flow Rate 98.2 F 113 H 23 H 137/78 H 90 Mechanical Ventilator 95 12/17/23 15:00 12/17/23 15:24 12/17/23 15:24 12/17/23 15:01 12/17/23 15:24 12/17/23 15:01 12/13/23 12:05 FiO2 40 12/17/23 15:24 Oxygen Flow Rate (L/min) 95 Oxygen Delivery Method Mechanical Ventilator Weight: 86.5 kg Body Mass Index (BMI) 27.3 Intake & Output: Intake and Output for Last 24 Hours 12/15/23 12/16/23 12/17/23 23:59 23:59 23:59 Intake Total 1122.29 / 1246.79 1237.20 / 1237.20 310 / 310 Output Total 2555 / 2705 1830 / 1830 1835 / 1835 Balance -1432.71 / -1458.21 -592.80 / -592.80 -1525 / -1525 Lab / Micro Data 12/17/23 02:49 12/17/23 02:49 Labs: Laboratory Results - last 24 hr 12/16/23 03:30: Diff Path Review Reviewed 12/16/23 17:07: POC Glucose 208 H 12/16/23 23:16: POC Glucose 204 H 12/17/23 02:49: WBC 12.5 H, RBC 2.80 L, Hgb 8.9 L, Hct 25.8 L, MCV 92.1, MCH 31.8, MCHC 34.5, RDW Std Deviation 49.6 H, RDW Coeff of Elaine 15.6 H, Plt Count 54 L, MPV 12.7 H, Immature Gran % (Auto) 1.900 H, Neut % (Auto) 80.2 H, Lymph % (Auto) 7.1 L, [place] % (Auto) 10.6 H, Eos % (Auto) 0.0, Baso % (Auto) 0.2, Absolute Neuts (auto) 10.0 H, Absolute Lymphs (auto) 0.89, Nucleated RBC % 1.1, PT 29.6 H, INR 2.8, APTT 40.1 H, Fibrinogen 88 L*, D-Dimer Quant (PE/DVT) 16.66 H*, Sodium 136, Potassium 5.2 H, Chloride 103, Carbon Dioxide 25.0, Anion Gap 8, BUN 99 H, Creatinine 4.03 H, Estim Creat Clear Calc 22.63, Est GFR (MDRD) Af Amer 20 L, Est GFR (MDRD) Non-Af 16 L, BUN/Creatinine Ratio 24.6 H, Glucose 242 H, Calcium 7.1 L, Phosphorus 5.1 H, Magnesium 2.4, Total Bilirubin 9.80 H, AST 101 H, ALT 224 H, Alkaline Phosphatase 60, Total Protein 4.3 L, Albumin 1.9 L, Globulin 2.4, Albumin/Globulin Ratio 0.8 L 12/17/23 05:16: POC Glucose 231 H 12/17/23 11:10: POC Glucose 174 H Micro: Microbiology 12/14/23 09:45 Blood Culture (Wb) - Right Forearm Blood Culture - Preliminary No growth in 48 hours. 12/14/23 09:35 Blood Culture (Wb) - Pic Blood Culture - Preliminary No growth in 48 hours. 12/14/23 09:25 Urine Catheter - Landry Urine Culture - Final Culture exhibits no growth. 12/14/23 09:02 Sputum, Induced/Lukens Gram Stain - Final 12/14/23 09:02 Sputum, Induced/Lukens Respiratory Culture - Final Presumptive C albicans 12/10/23 20:50 Blood Culture (Wb) - Anticubital Right Blood Culture - Final No growth in 5 days. 12/10/23 20:50 Blood Culture (Wb) - Anticubital Left Blood Culture - Final No growth in 5 days. 12/10/23 Unknown Sputum, Induced/Lukens Gram Stain - Final 12/10/23 Unknown Sputum, Induced/Lukens Respiratory Culture - Final Staphylococcus aureus Haemophilus influenzae 12/10/23 20:50 Urine Catheter - Landry Urine Culture - Final Culture exhibits no growth. 12/10/23 20:50 Mucosa - Nose SARS-CoV-2, Influenza & RSV (PCR) - Final Radiography Diagnostic Testing: Radiology Impression Venous Doppler Study 12/13/23 09:08 Interpretation Summary Deep veins of the bilateral lower extremities are patent and compressible segmentally. There is no evidence of bilateral lower extremity deep vein thrombosis. The bilateral great saphenous veins appear patent and compressible segmentally. Ordering Physician: Singh Recinos Referring Physician: Aleksander Moyer Performed By: Albert Teague, T Brain MRI 12/17/23 07:10 IMPRESSION: 1. Mild chronic ischemic changes of the brain, as described above. 2. Severe bilateral mastoiditis. Electronically Signed: Levy Navarro MD at 15:33 EDT , KUB X-Ray 12/17/23 08:40 IMPRESSION: Mildly dilated cecum with thickening of the Coleen pattern. A catheter is seen within the urinary bladder. The tip of the orogastric tube is within the midportion of the body of the stomach. Electronically Signed: Sumit Mcknight MD at 9:41 EDT , Physical Exam Narrative Ill-appearing, intubated and only on low-dose fentanyl Breath sounds are diminished S1-S2 regular Abdomen is distended Positive for scrotal edema Still significant lower extremity edema Left IJ Vas-Cath Assessment & Plan Assessment/Plan (1) SIGRID (acute kidney injury): PLAN: Normal baseline. CT abd without hydro. Rhabdomyolysis. mild hyperkalemia due to SIGRID urine tox positive for multiple drugs aspiration pneumonia suspected Intermittent hemodialysis initiated on 12/12 Did not tolerate HD early today. BP is lower today. ? DIC. will reassess for HD tomorrow. (2) Acute hypercapnic respiratory failure: (3) Septic shock:
[2023-12-17 17:34] LABS: Bedside Glucose 197 mg/dL (74-106)
[2023-12-17] MEDS: Phytonadione (Vit K) 10 MG in 0.9% Normal Saline (50mL Bag) 50 ML 150 MG IV (21:49)
[2023-12-17 23:41] LABS: Bedside Glucose 221 mg/dL (74-106)
[2023-12-18] VITALS (25 sets, daily range): BP systolic 83–158; BP diastolic 55–90; PULSE 106–122; RESP 18–26; TEMP 36.6–37.7; O2SAT 89–99; BMI 27.2
--- NOTE | 2023-12-18 | LIVB_PTH ---
PATIENT: RONNIE KATZ LOC: ICU U#:[id number] AGE/SX: 58/M ROOM: ICU04 RE12/10/[address]: Dr. Julia Murry DO : 1965 BED: 1 DIS: 12/18/2023 SPEC #: [id number] RECD: 12/18/23 11:00 STATUS: ARIELLE REQ #: [id number] ADRI: 12/18/23 00:[address]: Julia Murry DEPT: SURGICAL PATHOLOGY RECD BY: Mounika Wylie ENTERED: 12/18/23 11:36 SP TYPE: LIVER BX OTHR DR: MD Dr. Catia Milton MD Dr. Andrew Fredericks, MD Archana Hinduja, MD Dr. Allison Jordan, DO MD Dr. Leesa Baron MD Danielle Becker, MD Dr. Derek Brown, DO Dr. Deepak Gulati, MD Dr. David Kittoe, MD Dr. Edward Matheis, MD Dr. Gautam Baskaran, MD Dr. Gabriele Pedicelli, MD Dr. Yordanos Habtegebriel, MD Dr. Hemant Dand, MD Dr. Hera Kamdar, MD Dr. Jan Bittar, MD Dr. James Burke, MD Jesse Mindel, MS Jaysingh Rushing, MD Dr. Kisha Nano, MD Dr. Lamia Aljundi, MD Dr. Becky Baggott, MD ELLIS CHAYA, MD Milly Beigel, MD Dr. Missael Gusler, MD Dr. Jaci Han, MD Dr. Mohamed Ridha, MD Dr. Mhd Stephane ZaghloulehMD Murray MD Dr. Nicholas F Kotsonis, MD Dr. Natthavat Tanphaichitr, MD Dr. Pritam Ghosh, MD Dr. Pavan Irukulla, MD Dr. Peter Robinson, MD Dr. Rami Ibrahim, MD Dr. Saad Farooqi, MD Dr. Sushil Lakhani, MD Sarita Maturu, MD Dr. Tanmay Panchabhai, MD Dr. Vikram Anand, MD Dr. Vivien Lee, MD Dr. Aleksander Lindsey, MD Cm Nunez Dr., MD Chandrika Suero, [employer] Tissues: Liver, NOS Procedures: PAS with Diastase (control) Trichrome (control) Special Stain Group II PAS Stain (control) Surgery Specimen Level V Retic (control) Iron Stain (control) HEADER OPERATION: CT guided liver biopsy PRE-OP DIAGNOSIS: Liver failure TISSUE SUBMITTED: Liver biopsy MICROSCOPIC DIAGNOSIS Liver, CT guided core biopsy: Consistent with cirrhosis. See microscopic description and comment. ED/ 12/19/2023 COMMENT Correlation with clinical, laboratory, radiologic findings and appropriate follow up are necessary. MICROSCOPIC DESCRIPTION Slides are reviewed. This specimen shows liver parenchymal tissue with distortion of normal lobular architecture into multiple nodules divided by fibrous septa. Hepatocytes show macro and microvacuolar steatosis and extensive bile stasis. Chicken wire fibrosis around the hepatocytes is noted. Hepatocytes necrosis and chronic nodular inflammation are also present. Fibrous septa between the nodules also show chronic inflammatory cells infiltrates. Interface inflammation is not seen. Iron stain shows absent iron. Reticulin and trichrome stains highlight the fibrous septa and chicken wire fibrosis. PAS stains with and without diastase do not show any abnormal accumulation of protein. All stains are performed with appropriate matched controls. GROSS DESCRIPTION Received is one container labeled with the patient's name and not further designated. The specimen consists of three elongated fragments of stoll soft tissue each measuring 1.2cm in length and 0.1cm in diameter. The entire specimen is submitted in one cassette. ED/ 12/18/2023 TC:5 CPT:57935,88134
[2023-12-18] MEDS: Ipratropium/Albuterol Sulfate 3 ML AMPUL.NEB INHALATION ×3 (00:11→11:27)
[2023-12-18] MEDS: Insulin Lispro 100 UNIT/ML INSULN.PEN SC ×2 (05:15→11:50)
[2023-12-18] MEDS: Lactulose 20 GM/30 ML UDC PO ×2 (05:15→13:38)
[2023-12-18] MEDS: Metoclopramide 10 MG/2 ML Vial IV ×2 (05:15→13:38)
[2023-12-18 05:59] LABS: Bedside Glucose 207 mg/dL (74-106)
[2023-12-18] MEDS: CHLORHEXIDINE GLUC 2% CLOTH 1 EACH TOWELETTE TOPICAL (06:40)
[2023-12-18 06:42] LABS: Absolute Lymphocyte Count 1.16 X10^3/uL (0.83-4.51); Absolute Neutrophil Count 18.3 X10^3/uL (2.0-7.7); Basophil# 0.05 X10^3/uL; Basophil% 0.2 % (0-1); Eosinophil# 0.02 X10^3/uL; Eosinophils% 0.1 % (0-5); Hemoglobin 8.1 g/dL (13.0-16.5); Lymphocyte # 1.16 X10^3/ul (0.83-4.51); Lymphocyte % 5.4 % (19-41); Mean Corp Hgb Conc 33.8 g/dL (32-36); Mean Corpuscular Hgb 31.8 pg (27.0-32.0); Mean Corpuscular Volume 94.1 fL (80-94); Mean Platelet Vol. 12.7 fl (6.2-12.0); Monocyte# 1.41 X10^3/uL; Monocyte% 6.5 % (0-10); NRBC Flagged by Analyzer 0.8 % (0-5); Neutrophil # 18.26 X10^3/uL (2.7-7.7); Neutrophil % 84.8 % (47-70); POSITIVE COUNT YES; Platelet Count 83 K/mm3 (150-450); RBC Distribution Width CV 16.4 % (11.6-14.6); RBC Distribution Width SD 49.9 fl (35.1-43.9); Red Blood Count 2.55 M/mm3 (4.6-6.2); White Blood Count 21.5 K/mm3 (4.4-11.0)
[2023-12-18 06:43] LABS: International Normalized Ratio 2.6; Partial Thromboplast Time 27.4 Seconds (24.1-36.2); Prothrombin Time (Protime)PT. 38.1 SECONDS (11.7-14.9)
[2023-12-18 06:50] LABS: ALB/GLOB Ratio 0.8 RATIO (0.9-2.4); AST(SGOT) 76 U/L (15-37); Alanine Aminotransfer ALT/SGPT 168 U/L (16-61); Alkaline Phosphatase 64 U/L (45-117); Anion Gap 5 (5-15); BUN 97 mg/dL (7-18); BUN/Creat Ratio 31.1 RATIO (10-20); Calcium,Total 7.3 mg/dL (8.5-10.1); Chloride 104 mmol/L (98-107); Creatinine, Serum 3.12 mg/dL (0.70-1.30); EST Glomerular Filtration Rate 22 mL/min (>60); Est Glom Filt Rate - Afr Amer 27 mL/min (>60); Estimated Creatinine Clearance 26.97 ml/min; Globulin 2.5 g/dL (2.2-4.2); Glucose 239 mg/dL (74-106); Potassium 5.1 mmol/L (3.5-5.1); Protein, Total 4.5 g/dL (6.4-8.2); Sodium Level 136 mmol/L (136-145)
--- NOTE | 2023-12-18 07:44 | PCM.PN.INT ---
Assessment & Plan Assessment/Plan (1) Septic shock: (2) Aspiration into airway: PLAN: Plan RECOMMENDATIONS: 1. Continue assist-control mode mechanical ventilation. Wean FiO2 and PEEP to maintain saturations at or above 90%. 2. Continue antibiotics. 3. Okay to stop stress dose steroids. 4. Continue to avoid sedating medications. 5. Ongoing dialysis support per nephrology recommendations. 6. Continue bronchodilator therapy. 7. Ongoing goals of care discussion with the patient's family. IMPRESSIONS: 1. Acute combined respiratory failure The patient initially presented to the hospital after being found down unresponsive by family members. He does have reported history of COPD along with a positive toxicology screen at presentation. The patient was notably hypercapnic and was intubated as a consequence of this. The patient's acid-base status has improved with invasive mechanical ventilatory support. He does have evidence of multifocal airspace disease on chest imaging, with Staph aureus and haemophilus influenza isolated on sputum culture. The patient remains on appropriate antimicrobial therapy. Continue current supportive measures. 2. Septic shock Improved. Most likely secondary to presenting pneumonia. The patient has been weaned from vasopressor support and remains hemodynamically stable. Accordingly, we will plan to discontinue stress dose steroids today. 3. Multisystem organ failure with coagulopathy Clinical concern for ischemic etiologies for acute liver and kidney failure. Nephrology and gastroenterology are following to assist with medical management. 4. Toxic/metabolic encephalopathy Continue supportive measures as noted above. Hypercapnia has improved with invasive mechanical ventilatory support. However, the patient remains significantly encephalopathic, which is limiting his ability to be extubated. TSH is within normal limits. Ammonia has improved. CT head was unremarkable. EEG demonstrated severe diffuse encephalopathy. MRI brain did not show any acute changes. 5. History of polysubstance dependency Complicates care, management, recovery and prognosis. Continue supportive measures as outlined above. TIME: 37 minutes of critical care time, independent of procedures, was spent addressing the patient's acute combined respiratory failure, septic shock, multisystem organ failure with coagulopathy, toxic/metabolic encephalopathy, review of all data and collaboration with the care team. Subjective Subjective The patient was seen and examined at the bedside this morning. Events from the last 24 hours have been reviewed. The patient is currently afebrile, hemodynamically stable and maintaining appropriate oxygen saturations on spontaneous mode of mechanical ventilation with an FiO2 requirement of 45%. The patient is a bit more alert and able to wiggle his toes on command. He is documented to be overall net +5.8 L for the hospitalization. White count increased this morning to 21,000. Hemoglobin is down to 8.1 g/dL. However, platelet count has improved to 83,000. INR remains elevated at 2.6. Total bilirubin is again increased to 10.6. There are tentative plans for liver biopsy later today. MRI brain demonstrated mild chronic ischemic changes along with severe bilateral mastoiditis. The patient's EEG demonstrated severe diffuse encephalopathy without any epileptiform discharges. I did meet personally with the patient's family this morning to discuss goals of care. Following my discussion, it was their decision to wait an additional 2 to 3 days on the ventilator to further assess for any improvement in the patient's mental status. I explained to them options including trach and PEG and the possibility for extubation, without reintubation. Objective Data Objective Data The patient's most recent lab work, culture data and imaging studies have all been personally reviewed. CT chest/abdomen/pelvis demonstrated patchy bilateral airspace disease with diffuse emphysematous changes. Abdominal ultrasound demonstrated mild to moderate ascites without any significant pathology. Sputum culture was positive for MSSA and haemophilus influenza. Surface echocardiogram demonstrated an ejection fraction of 45% with a moderately dilated RV, moderate global RV systolic dysfunction and pulmonary artery systolic pressure of 30 mmHg. Vital Signs: Vital Signs Temp Pulse Resp BP Pulse Ox O2 Del Method O2 Flow Rate 99.0 F 115 H 19 H 108/69 91 Mechanical Ventilator 95 12/18/23 07:00 12/18/23 07:21 12/18/23 07:21 12/18/23 07:00 12/18/23 07:21 12/18/23 07:21 12/13/23 12:05 FiO2 45 12/18/23 07:21 Oxygen Flow Rate (L/min) 95 Oxygen Delivery Method Mechanical Ventilator Weight: 190 lb 4.143 oz Body Mass Index (BMI) 27.2 Intake & Output: Intake and Output for Last 24 Hours 12/16/23 12/17/23 12/18/23 23:59 23:59 23:59 Intake Total 1237.20 / 1237.20 591 / 591 60 / 60 Output Total 1830 / 1830 2160 / 2160 200 / 200 Balance -592.80 / -592.80 -1569 / -1569 -140 / -140 Lab / Micro Data Attestation: I reviewed the patient's lab results. 12/18/23 03:58 12/18/23 03:58 Labs: Laboratory Results - last 24 hr 12/17/23 11:10: POC Glucose 174 H 12/17/23 17:11: POC Glucose 197 H 12/17/23 19:36: Blood Type A POSITIVE 12/17/23 23:22: POC Glucose 221 H 12/18/23 03:58: WBC 21.5 H, RBC 2.55 L, Hgb 8.1 L, Hct 24.0 L, MCV 94.1 H, MCH 31.8, MCHC 33.8, RDW Std Deviation 49.9 H, RDW Coeff of Elaine 16.4 H, Plt Count 83 L, MPV 12.7 H, Immature Gran % (Auto) 3.000 H, Neut % (Auto) 84.8 H, Lymph % (Auto) 5.4 L, [place] % (Auto) 6.5, Eos % (Auto) 0.1, Baso % (Auto) 0.2, Absolute Neuts (auto) 18.3 H, Absolute Lymphs (auto) 1.16, Nucleated RBC % 0.8, PT 38.1 H, INR 2.6, APTT 27.4, Sodium 136, Potassium 5.1, Chloride 104, Carbon Dioxide 27.0, Anion Gap 5, BUN 97 H, Creatinine 3.12 H, Estim Creat Clear Calc 26.97, Est GFR (MDRD) Af Amer 27 L, Est GFR (MDRD) Non-Af 22 L, BUN/Creatinine Ratio 31.1 H, Glucose 239 H, Calcium 7.3 L, Total Bilirubin 10.60 H, AST 76 H, ALT 168 H, Alkaline Phosphatase 64, Total Protein 4.5 L, Albumin 2.0 L, Globulin 2.5, Albumin/Globulin Ratio 0.8 L 12/18/23 05:10: POC Glucose 207 H Micro: Microbiology 12/14/23 09:45 Blood Culture (Wb) - Right Forearm Blood Culture - Preliminary No growth in 48 hours. 12/14/23 09:35 Blood Culture (Wb) - Pic Blood Culture - Preliminary No growth in 48 hours. 12/14/23 09:25 Urine Catheter - Landry Urine Culture - Final Culture exhibits no growth. 12/14/23 09:02 Sputum, Induced/Lukens Gram Stain - Final 12/14/23 09:02 Sputum, Induced/Lukens Respiratory Culture - Final Presumptive C albicans 12/10/23 20:50 Blood Culture (Wb) - Anticubital Right Blood Culture - Final No growth in 5 days. 12/10/23 20:50 Blood Culture (Wb) - Anticubital Left Blood Culture - Final No growth in 5 days. 12/10/23 Unknown Sputum, Induced/Lukens Gram Stain - Final 12/10/23 Unknown Sputum, Induced/Lukens Respiratory Culture - Final Staphylococcus aureus Haemophilus influenzae 12/10/23 20:50 Urine Catheter - Landry Urine Culture - Final Culture exhibits no growth. 12/10/23 20:50 Mucosa - Nose SARS-CoV-2, Influenza & RSV (PCR) - Final ABG Data ABG results: ABG 12/16/23 09:18 Specimen Type ART Sample Site L Radial pH 7.32 L Bicarbonate Actual 26.5 H Total CO2 28 Base Excess 0 O2 Saturation 93 L O2 % 40.0 ABG pCO2 51.7 H ABG pO2 73 L Yong Test Positive O2 Delivery Device Adult Vent Vent Mode CPAP/PS POC PEEP 5 Radiography Diagnostic Testing: Radiology Impression Brain MRI 12/17/23 07:10 IMPRESSION: 1. Mild chronic ischemic changes of the brain, as described above. 2. Severe bilateral mastoiditis. Electronically Signed: Levy Navarro MD at 15:33 EDT , KUB X-Ray 12/17/23 08:40 IMPRESSION: Mildly dilated cecum with thickening of the Coleen pattern. A catheter is seen within the urinary bladder. The tip of the orogastric tube is within the midportion of the body of the stomach. Electronically Signed: Sumit Mcknight MD at 9:41 EDT , Physical Exam Const Constitutional Narrative: Intubated, sedated and mechanically ventilated. No ventilator dyssynchrony noted. General Appearance: lethargic, ill appearing and patient mechanically ventilated HEENT normocephalic and head/scalp atraumatic Mouth: endotracheal tube in place and OG tube in place Eyes PERRL Neck supple General: trachea midline Chest inspection of chest normal Resp normal respiratory effort Auscultation: diminished lung sounds; Negative for rales, rhonchi or wheezes Cardio regular rate and regular rhythm GI normal to inspection, nondistended, normoactive bowel sounds Extremity General Extremity: edema bilateral lower extremity; Negative for clubbing Skin no rashes or lesions noted Neuro Neuro Narrative: Currently without any form of sedation. The patient will now wiggle his toes to command. Charges/Coding Procedures Hospitalists Procedures: 11200 Critical Care 1st Hr
[2023-12-18] MEDS: Lidocaine 2% (20 ml mdv) 20 ML Vial INFILT (09:30)
--- NOTE | 2023-12-18 09:57 | PCM.OP.PRO ---
Procedure Report Date of Procedure: 12/18/23 Assessment & Plan Assessment/Plan (1) Multi-organ failure with liver failure: PLAN: PROCEDURE: CT DIRECTED CORE LIVER BIOPSY ORDERING PROVIDER: Dr. Connor INDICATION: Male, 58 years old. Acute liver failure. PROVIDER: JAGJIT Carrillo CONSENT: Written informed consent was obtained having explained the risks, benefits and alternatives in detail with the patient's family who accepted the risks and agreed to proceed. Laboratory review and clinical assessment was performed. PRE-PROCEDURE SEDATION ASSESSMENT: Current history and physical dictated by referring provider and reviewed. No clinical changes since date of exam. The patient is intubated without sedation and is tolerating this well. Local anesthetic only will be used. RADIATION DOSAGE (If Supplied By Facility): CTDIvol = 20.02 mGy, DLP = 583.78 mGycm Individualized dose optimization techniques were used for this CT. TECHNIQUE: The patient was placed in a supine position. Using CT image guidance with image documentation, a suitable location in the left lobe of the liver was identified. The skin surface was prepped with betadine and draped in a sterile fashion. 2% lidocaine was used for local anesthesia. Using an anterior approach, puncture of the liver was uneventful with an 18-gauge core needle system. 3, 18-gauge core samples were obtained, and submitted in formalin to the pathologist for further assessment. The needle was removed. An occlusive sterile dressing was applied. Patient tolerated the procedure well, and returned to the ICU with nursing and respiratory staff. IMPRESSION: 1. CT directed core needle biopsy of the liver, using CT image guidance with image documentation as described. 2. Procedural Sedation protocol utilized with independent monitoring. Procedures Radiology Radiology CT Procedures: 70979 Biopsy Liver
[2023-12-18] MEDS: 0.9% Saline Lock 10 ML Syringe IV ×2 (09:59→13:39)
[2023-12-18] MEDS: Thiamine Hydrochloride 100 MG Tablet GT (10:01)
[2023-12-18] MEDS: Chlorhexidine 15 ML PO (10:01)
[2023-12-18] MEDS: Hydrocortisone Sod Succinate 100 MG/2 ML Vial 50 MG IV (10:01)
[2023-12-18] MEDS: Senna/Docusate Sodium 1 Tablet 2 TABLET GT (10:01)
[2023-12-18] MEDS: Folic Acid 1 MG Tablet GT (10:01)
[2023-12-18] MEDS: Pantoprazole Sodium 40 MG in 0.9% Normal Saline (100mL MB+) 100 ML 330 MG IV (10:03)
[2023-12-18] MEDS: Insulin Glargine-YFGN 100 UNIT/ML Pen 25 UNIT SC (10:08)
[2023-12-18] MEDS: Ceftriaxone 1 GM/50 ML BAG IV (10:12)
--- NOTE | 2023-12-18 10:12 | CASEMGMT ---
The pt family is requesting a list of in-network tertiary facilities. Pt has [employer] M[employer] and [employer]. Per the pt insurance plan, the pt is in-network with the following: [facility], [facility], [facility], [facility], [facility], and [facility]. List provided to the pt family at this time.
--- NOTE | 2023-12-18 10:14 | CASEMGMT ---
Addendum entered by Marquita Roberts 12/18/23 12:18: Social Work Pt's sister Asia notified SW that family would like pt transferred to [facility]. SW notified Dr. Matute, Dr. Murry, pt's RN and CM. JANET Greene Original Note: Social Work Family meeting today with Dr. Matute, this SW, and pt's mother, four siblings and aunt in regard to pt's condition and prognosis. Family would like to wait for liver biopsy results before making any decisions. They asked for medical records, SW gave them the release of information form and advised them to follow up w/medical records, directed them on how to go about this. Family also asking about tertiary facilities, CM to let them know where pt's insurance would be accepted. SW remains available for any additional support to family. JANET Greene
--- NOTE | 2023-12-18 10:18 | NURSING ---
CHETAN Corea went to ICU to assist pt to CT for CT Guided Liver Biopsy. Plan discussed by Radiology to take patient to CT, perform biopsy with local anesthetic only, then pt to return immediately to ICU. Pt remained on ICU internal monitoring throughout entire procedure. Pt was ventilated manually by respiratory therapy throughout transportation and procedure. Pt tolerated entire process well and immediately returned to ICU.
--- NOTE | 2023-12-18 11:32 | PCM.PN.REN ---
Subjective Subjective Remains intubated. Urine output is present. Bilirubin higher. WBC count has increased. Platelet count better. For liver biopsy today. Objective Data Objective Data Vital Signs: Vital Signs Temp Pulse Resp BP Pulse Ox O2 Del Method O2 Flow Rate 99.1 F 122 H 26 H 158/90 H 94 Mechanical Ventilator 95 12/18/23 09:21 12/18/23 09:21 12/18/23 09:21 12/18/23 09:21 12/18/23 09:21 12/18/23 09:21 12/13/23 12:05 FiO2 40 12/18/23 09:02 Oxygen Flow Rate (L/min) 95 Oxygen Delivery Method Mechanical Ventilator Weight: 86.3 kg Body Mass Index (BMI) 27.2 Intake & Output: Intake and Output for Last 24 Hours 12/16/23 12/17/23 12/18/23 23:59 23:59 23:59 Intake Total 1237.20 / 1237.20 591 / 591 1230 / 1230 Output Total 1830 / 1830 2160 / 2160 575 / 575 Balance -592.80 / -592.80 -1569 / -1569 655 / 655 Lab / Micro Data 12/18/23 03:58 12/18/23 03:58 Labs: Laboratory Results - last 24 hr 12/17/23 11:10: POC Glucose 174 H 12/17/23 17:11: POC Glucose 197 H 12/17/23 19:36: Blood Type A POSITIVE 12/17/23 23:22: POC Glucose 221 H 12/18/23 03:58: WBC 21.5 H, RBC 2.55 L, Hgb 8.1 L, Hct 24.0 L, MCV 94.1 H, MCH 31.8, MCHC 33.8, RDW Std Deviation 49.9 H, RDW Coeff of Elaine 16.4 H, Plt Count 83 L, MPV 12.7 H, Immature Gran % (Auto) 3.000 H, Neut % (Auto) 84.8 H, Lymph % (Auto) 5.4 L, [place] % (Auto) 6.5, Eos % (Auto) 0.1, Baso % (Auto) 0.2, Absolute Neuts (auto) 18.3 H, Absolute Lymphs (auto) 1.16, Nucleated RBC % 0.8, PT 38.1 H, INR 2.6, APTT 27.4, Sodium 136, Potassium 5.1, Chloride 104, Carbon Dioxide 27.0, Anion Gap 5, BUN 97 H, Creatinine 3.12 H, Estim Creat Clear Calc 26.97, Est GFR (MDRD) Af Amer 27 L, Est GFR (MDRD) Non-Af 22 L, BUN/Creatinine Ratio 31.1 H, Glucose 239 H, Calcium 7.3 L, Total Bilirubin 10.60 H, AST 76 H, ALT 168 H, Alkaline Phosphatase 64, Total Protein 4.5 L, Albumin 2.0 L, Globulin 2.5, Albumin/Globulin Ratio 0.8 L 12/18/23 05:10: POC Glucose 207 H Micro: Microbiology 12/14/23 09:45 Blood Culture (Wb) - Right Forearm Blood Culture - Preliminary No growth in 48 hours. 12/14/23 09:35 Blood Culture (Wb) - Pic Blood Culture - Preliminary No growth in 48 hours. 12/14/23 09:25 Urine Catheter - Landry Urine Culture - Final Culture exhibits no growth. 12/14/23 09:02 Sputum, Induced/Lukens Gram Stain - Final 12/14/23 09:02 Sputum, Induced/Lukens Respiratory Culture - Final Presumptive C albicans 12/10/23 20:50 Blood Culture (Wb) - Anticubital Right Blood Culture - Final No growth in 5 days. 12/10/23 20:50 Blood Culture (Wb) - Anticubital Left Blood Culture - Final No growth in 5 days. 12/10/23 Unknown Sputum, Induced/Lukens Gram Stain - Final 12/10/23 Unknown Sputum, Induced/Lukens Respiratory Culture - Final Staphylococcus aureus Haemophilus influenzae 12/10/23 20:50 Urine Catheter - Landry Urine Culture - Final Culture exhibits no growth. 12/10/23 20:50 Mucosa - Nose SARS-CoV-2, Influenza & RSV (PCR) - Final Radiography Diagnostic Testing: Radiology Impression Brain MRI 12/17/23 07:10 IMPRESSION: 1. Mild chronic ischemic changes of the brain, as described above. 2. Severe bilateral mastoiditis. Electronically Signed: Levy Navarro MD at 15:33 EDT , Physical Exam Narrative Ill-appearing, intubated and only on low-dose fentanyl Breath sounds are diminished S1-S2 regular Abdomen is distended Positive for scrotal edema Still significant lower extremity edema Left IJ Vas-Cath Assessment & Plan Assessment/Plan (1) SIGRID (acute kidney injury): PLAN: Normal baseline. CT abd without hydro. Rhabdomyolysis. mild hyperkalemia due to SIGRID urine tox positive for multiple drugs aspiration pneumonia Intermittent hemodialysis initiated on 12/12 Last dialysis was 12/17/2023. Did not tolerate. Fluid removal had to be cut back. No acute indications for dialysis today. Will reattempt tomorrow. Concern for liver necrosis due to increasing bilirubin. Liver biopsy today. Urine output is somewhat better than before. Discussed with primary service. (2) Acute hypercapnic respiratory failure: (3) Septic shock:
[2023-12-18 12:10] LABS: Bedside Glucose 197 mg/dL (74-106)
--- NOTE | 2023-12-18 13:03 | PCM.PN.HOSP ---
Reason for Visit Reason for Visit: Unresponsiveness Subjective Subjective No issues overnight. Patient is responding minimally. MRI and EEG are overtly unremarkable other than severe encephalopathy on EEG. Neurology has signed off. Objective Data Objective Data Vital Signs: Vital Signs Temp Pulse Resp BP Pulse Ox O2 Del Method O2 Flow Rate 98.7 F 122 H 23 H 156/76 H 92 Mechanical Ventilator 95 12/18/23 12:00 12/18/23 13:00 12/18/23 13:00 12/18/23 13:00 12/18/23 13:00 12/18/23 13:00 12/13/23 12:05 FiO2 40 12/18/23 13:00 Oxygen Flow Rate (L/min) 95 Oxygen Delivery Method Mechanical Ventilator Weight: 86.3 kg Body Mass Index (BMI) 27.2 Intake & Output: Intake and Output for Last 24 Hours 12/16/23 12/17/23 12/18/23 23:59 23:59 23:59 Intake Total 1237.20 / 1237.20 591 / 591 1290 / 1290 Output Total 1830 / 1830 2160 / 2160 725 / 725 Balance -592.80 / -592.80 -1569 / -1569 565 / 565 Lab / Micro Data 12/18/23 03:58 12/18/23 03:58 Labs: Laboratory Results - last 24 hr 12/17/23 17:11: POC Glucose 197 H 12/17/23 19:36: Blood Type A POSITIVE 12/17/23 23:22: POC Glucose 221 H 12/18/23 03:58: WBC 21.5 H, RBC 2.55 L, Hgb 8.1 L, Hct 24.0 L, MCV 94.1 H, MCH 31.8, MCHC 33.8, RDW Std Deviation 49.9 H, RDW Coeff of Elaine 16.4 H, Plt Count 83 L, MPV 12.7 H, Immature Gran % (Auto) 3.000 H, Neut % (Auto) 84.8 H, Lymph % (Auto) 5.4 L, [place] % (Auto) 6.5, Eos % (Auto) 0.1, Baso % (Auto) 0.2, Absolute Neuts (auto) 18.3 H, Absolute Lymphs (auto) 1.16, Nucleated RBC % 0.8, PT 38.1 H, INR 2.6, APTT 27.4, Sodium 136, Potassium 5.1, Chloride 104, Carbon Dioxide 27.0, Anion Gap 5, BUN 97 H, Creatinine 3.12 H, Estim Creat Clear Calc 26.97, Est GFR (MDRD) Af Amer 27 L, Est GFR (MDRD) Non-Af 22 L, BUN/Creatinine Ratio 31.1 H, Glucose 239 H, Calcium 7.3 L, Total Bilirubin 10.60 H, AST 76 H, ALT 168 H, Alkaline Phosphatase 64, Total Protein 4.5 L, Albumin 2.0 L, Globulin 2.5, Albumin/Globulin Ratio 0.8 L 12/18/23 05:10: POC Glucose 207 H 12/18/23 11:48: POC Glucose 197 H Micro: Microbiology 12/14/23 09:45 Blood Culture (Wb) - Right Forearm Blood Culture - Preliminary No growth in 48 hours. 12/14/23 09:35 Blood Culture (Wb) - Pic Blood Culture - Preliminary No growth in 48 hours. 12/14/23 09:25 Urine Catheter - Landry Urine Culture - Final Culture exhibits no growth. 12/14/23 09:02 Sputum, Induced/Lukens Gram Stain - Final 12/14/23 09:02 Sputum, Induced/Lukens Respiratory Culture - Final Presumptive C albicans 12/10/23 20:50 Blood Culture (Wb) - Anticubital Right Blood Culture - Final No growth in 5 days. 12/10/23 20:50 Blood Culture (Wb) - Anticubital Left Blood Culture - Final No growth in 5 days. 12/10/23 Unknown Sputum, Induced/Lukens Gram Stain - Final 12/10/23 Unknown Sputum, Induced/Lukens Respiratory Culture - Final Staphylococcus aureus Haemophilus influenzae 12/10/23 20:50 Urine Catheter - Landry Urine Culture - Final Culture exhibits no growth. 12/10/23 20:50 Mucosa - Nose SARS-CoV-2, Influenza & RSV (PCR) - Final Radiography Diagnostic Testing: Radiology Impression Brain MRI 12/17/23 07:10 IMPRESSION: 1. Mild chronic ischemic changes of the brain, as described above. 2. Severe bilateral mastoiditis. Electronically Signed: Levy Navarro MD at 15:33 EDT , Physical Exam Const no apparent distress and average body habitus; Negative for healthy appearing or well nourished Constitutional Narrative: Middle-aged, white male, lying in bed intubated and sedated, remains with no significant purposeful interaction at this time, appears much older than stated age General Appearance: intubated and patient mechanically ventilated HEENT normocephalic, head/scalp atraumatic and moist oral mucous membranes HEENT Narrative: ET tube and OG in place Resp normal respiratory effort, no retractions, no use of accessory muscles and clear to auscultation bilaterally Resp Narrative: Diffusely diminished but clear Auscultation: Negative for crackles, rales, rhonchi or wheezes Cardio regular rhythm, S1 normal heart sound, S2 normal heart sound, no murmurs, no rub, no gallops and no clicks Cardio Narrative: Tachycardic GI soft to palpation and non-distended; Negative for hepatosplenomegaly GI Narrative: Remains with distention with hypoactive bowel sounds but soft, does not appear to be tender Extremity no clubbing, cyanosis or edema Extremity Narrative: Bilateral upper and lower extremity edema that is pitting in nature, no cyanosis or clubbing, right upper extremity PICC in place Skin skin turgor normal, No no jaundice, no petechiae and no mottling Skin Narrative: Left IJ hemodialysis catheter in place, clean and dry, dressing intact, patient is markedly jaundiced Neuro Neuro Narrative: No significant meaningful interaction despite not being on sedation Sensorium / Orientation: sedated on vent Psych Psych Narrative: Unable to assess Appearance: intubated Assessment & Plan Assessment/Plan (1) Acidosis, lactic: (2) Polysubstance abuse: (3) Hyperammonemia: (4) Multi-organ failure with liver failure: (5) Septic shock: (6) Acute hypercapnic respiratory failure: (7) SIGRID (acute kidney injury): (8) Acute hypoxic on chronic hypercapnic respiratory failure: (9) Thrombocytopenia: (10) Anemia: PLAN: Plan Acute hypoxic and hypercapnic respiratory failure secondary to pneumonia/altered mental status -Likely multifactorial with sepsis and positive toxicology screen -Patient was markedly acidotic on presentation with a pCO2 greater than 125 -Remains on 40% FiO2 and sats are between 92 and 93% with mechanical ventilation -Remains off sedation -Patient does well on his spontaneous breathing trials however his mental status prohibits extubation -[facility] following-appreciate input Septic shock secondary to H. influenzae and MSSA pneumonia/new fever -Blood pressures appear to be stabilizing -Stress dose steroids were discontinued and pressure still appear to be stable -Currently requiring no pressors -Continue antibiotics through 12/20/2023 -Initial and repeat blood cultures are negative and suspect fever is likely related to central fever at this time -Initial and subsequent urine cultures unremarkable SIGRID secondary to ischemic ATN -Most recent serum creatinine appears from 2020 and was 0.59 -Admission creatinine was 2.98 -Patient has been an uric and HD initiated on 12/13/2023 -Continue HD per nephrology -CT without hydronephrosis -Nephrology is following-appreciate input Acute exacerbation of COPD -Management per critical care medicine/pulmonary medicine Acute toxic/metabolic encephalopathy -Ammonia level has resolved to normal -Patient still with no significant meaningful interaction however was a bit more awake today -EEG shows diffuse severe encephalopathy -MRI of the brain had no acute findings -Will continue lactulose in setting of liver failure -Neurology evaluated the patient and feels that this is all metabolic and has signed off Ischemic hepatitis with coagulopathy -INR is still elevated but stable--> labs indicative of possible DIC however with fulminant liver failure not sure that we can see this is definitively diagnosis -AST and ALT are trending down however bilirubin continues to trend up and is currently 10.8 -Highly suspect that this is indicative of liver necrosis -Liver biopsy done today -Gastroenterology is following-appreciate input Hyperglycemia with history of hypoglycemia -Likely related to stress as well as stress dose steroids -Continue Lantus at 25 units as stress dose steroids were stopped today and monitor response -Continue SSI -Monitor closely with renal dysfunction Thrombocytopenia -Multifactorial -Slowly trending up now with a mirella of 42,000 -Continue to monitor Leukocytosis -Trending up-etiology is unclear -May be related to steroids and demargination -Patient's been cultured twice and negative both times -Still with low-grade fevers and a Tmax of 99.8 in last 24 hours -Will continue to monitor -Continue antibiotics with ceftriaxone for treatment of his pneumonia -Repeat blood cultures are negative Tachycardia -Mild -Likely related to the above -Continue to monitor Anemia -This appears to be new -Hemoglobin has been slowly trending down -Stool guaiac remains pending -May need EGD to rule out bleeding if this continues to drop -Will transfuse for hemoglobin less than 7 Depression-NOS -It is documented he is on aripiprazole and sertraline at home -Continue to hold these and will need to verify Tobacco abuse -Unclear if current amount -Will discuss further if patient able to be extubated DVT prophylaxis -Currently contraindicated chemoprophylaxis due to thrombocytopenia and coagulopathy -Continue SCDs CODE STATUS Full code Disposition: -[facility] had a conversation with family today and the initial plan was to hold off on terminal extubation for the next couple of days to see if his mental status improves. They did asked multiple questions about organ transplant and have now decided they want him transferred to tertiary center for consideration of both renal and liver transplant. He was accepted at [facility] for transfer and is currently on a list. No bed available at this time Charges/Coding Visit Charges Inpatient E&M: 11749 Subs Hosp L2
--- NOTE | 2023-12-18 13:43 | PCM.DC.SUM ---
Providers Date of Admission: 12/10/23 Date of Discharge: 12/18/23 Primary Care Physician: Dr. Aleksander Moyer MD Consultations 12/11/23 01:38 Consult: Gastroenterology Routine Consulting Provider: [facility] Reason for Consult: Shock liver EMERGENT Consult: No Notified: Yes Date Notified: 12/11/23 Time Notified: 07:35 Method of Notification: Text Consult: Director Electronics / Pulmonary Medicine Routine Consulting Provider: Pulmonary Medicine [facility] Reason for Consult: Vent management EMERGENT Consult: No Notified: Yes Date Notified: 12/10/23 Time Notified: 23:18 Method of Notification: ED Physician Initiated 12/11/23 17:43 Consult: Nephrology Routine Consulting Provider: Logan Parra Reason for Consult: SIGRID EMERGENT Consult: No Notified: Yes Date Notified: 12/11/23 Time Notified: 18:06 Method of Notification: Answering Service 12/17/23 17:50 Consult: Interventional Radiology Routine Consulting Provider: Sumit Mcknight Reason for Consult: Acute liver failure EMERGENT Consult: No Notified: Yes Date Notified: 12/17/23 Time Notified: 18:18 Method of Notification: Text Reason For Visit: SEVERE SEPSIS Diagnosis Discharge Diagnosis (1) Acidosis, lactic: Status: Acute Code(s): E87.20 - Acidosis, unspecified (2) Polysubstance abuse: Status: Acute Code(s): F19.10 - Other psychoactive substance abuse, uncomplicated (3) Hyperammonemia: Status: Acute Code(s): E72.20 - Disorder of urea cycle metabolism, unspecified (4) Multi-organ failure with liver failure: Status: Acute (5) Septic shock: Status: Acute Code(s): A41.9 - Sepsis, unspecified organism; R65.21 - Severe sepsis with septic shock (6) Acute hypercapnic respiratory failure: Status: Deleted Code(s): J96.02 - Acute respiratory failure with hypercapnia (7) SIGRID (acute kidney injury): Status: Acute Code(s): N17.9 - Acute kidney failure, unspecified (8) Acute hypoxic on chronic hypercapnic respiratory failure: Status: Acute Code(s): J96.01 - Acute respiratory failure with hypoxia; J96.12 - Chronic respiratory failure with hypercapnia (9) Thrombocytopenia: Status: Acute Code(s): D69.6 - Thrombocytopenia, unspecified (10) Anemia: Status: Acute Code(s): D64.9 - Anemia, unspecified Plan Acute hypoxic and hypercapnic respiratory failure secondary to pneumonia/altered mental status -Likely multifactorial with sepsis and positive toxicology screen -Patient was markedly acidotic on presentation with a pCO2 greater than 125 -Remains on 40% FiO2 and sats are between 92 and 93% with mechanical ventilation -Remains off sedation -Patient does well on his spontaneous breathing trials however his mental status prohibits extubation -[facility] following-appreciate input Septic shock secondary to H. influenzae and MSSA pneumonia/new fever -Blood pressures appear to be stabilizing -Stress dose steroids were discontinued and pressure still appear to be stable -Currently requiring no pressors -Continue antibiotics through 12/20/2023 -Initial and repeat blood cultures are negative and suspect fever is likely related to central fever at this time -Initial and subsequent urine cultures unremarkable SIGRID secondary to ischemic ATN -Most recent serum creatinine appears from 2020 and was 0.59 -Admission creatinine was 2.98 -Patient has been an uric and HD initiated on 12/13/2023 -Continue HD per nephrology -CT without hydronephrosis -Nephrology is following-appreciate input Acute exacerbation of COPD -Management per critical care medicine/pulmonary medicine Acute toxic/metabolic encephalopathy -Ammonia level has resolved to normal -Patient still with no significant meaningful interaction however was a bit more awake today -EEG shows diffuse severe encephalopathy -MRI of the brain had no acute findings -Will continue lactulose in setting of liver failure -Neurology evaluated the patient and feels that this is all metabolic and has signed off Ischemic hepatitis with coagulopathy -INR is still elevated but stable--> labs indicative of possible DIC however with fulminant liver failure not sure that we can see this is definitively diagnosis -AST and ALT are trending down however bilirubin continues to trend up and is currently 10.8 -Highly suspect that this is indicative of liver necrosis -Liver biopsy done today -Gastroenterology is following-appreciate input Hyperglycemia with history of hypoglycemia -Likely related to stress as well as stress dose steroids -Continue Lantus at 25 units as stress dose steroids were stopped today and monitor response -Continue SSI -Monitor closely with renal dysfunction Thrombocytopenia -Multifactorial -Slowly trending up now with a mirella of 42,000 -Continue to monitor Leukocytosis -Trending up-etiology is unclear -May be related to steroids and demargination -Patient's been cultured twice and negative both times -Still with low-grade fevers and a Tmax of 99.8 in last 24 hours -Will continue to monitor -Continue antibiotics with ceftriaxone for treatment of his pneumonia -Repeat blood cultures are negative Tachycardia -Mild -Likely related to the above -Continue to monitor Anemia -This appears to be new -Hemoglobin has been slowly trending down -Stool guaiac remains pending -May need EGD to rule out bleeding if this continues to drop -Will transfuse for hemoglobin less than 7 Depression-NOS -It is documented he is on aripiprazole and sertraline at home -Continue to hold these and will need to verify Tobacco abuse -Unclear if current amount -Will discuss further if patient able to be extubated DVT prophylaxis -Currently contraindicated chemoprophylaxis due to thrombocytopenia and coagulopathy -Continue SCDs CODE STATUS Full code Disposition: -[facility] had a conversation with family today and the initial plan was to hold off on terminal extubation for the next couple of days to see if his mental status improves. They did asked multiple questions about organ transplant and have now decided they want him transferred to tertiary center for consideration of both renal and liver transplant. He was accepted at [facility] for transfer and is currently on a list. No bed available at this time Medications at Discharge Home Medications sertraline 100 mg tablet 200 mg PO DAILY depression 09/04/20 albuterol 90 mcg/actuation aerosol inhaler 90 mcg inhalation Q4H PRN wheezing/SOB 12/16/23 aripiprazole 2 mg tablet (Abilify) 2 mg PO DAILY depression 12/16/23 fluticasone fur. 100 mcg-umeclid 62.5 mcg-vilant 25 mcg inhalat.powder (Trelegy Ellipta) 1 inh inhalation DAILY wheezing/SOB 12/16/23 nicotine (polacrilex) 4 mg gum (Nicorette) 4 mg buccal Q2H nicotine 12/16/23 Hospital Course Operations None Procedures 2-D Echocardiogram, Central line placement, Dialysis, Electroencephalogram, EKG, Intubation, PICC line placement and - (Multiple chest x-rays/abdominal ultrasound/CT of the brain/MRI of the brain/CT guided biopsy/CT of the chest abdomen pelvis) Summary of Care Provided Minutes Spent on Discharge: 40 Hospital Course: Patient is a 58-year-old male who presented to emergency department which [facility] on 12/10/2023 due to being found unresponsive by his family. And route to the hospital he was bagged by EMS. His blood sugar was 84 at that time and he was given 1 mg of Narcan without response. He was intubated upon arrival to the emergency department. Per documentation, he was texting with his mother earlier that afternoon and per her everything seemed to be normal. Toxicology screen was performed and several drugs were noted including benzodiazepines, marijuana, and ecstasy. Home medications are documented as aripiprazole and sertraline however we are unsure of compliance. His alcohol level was found to be normal. Family does report that he has previous drug use history however they were not aware that he was still using. There was concern that he likely aspirated during his period of altered mental status and with that intubation as extensive suctioning was required to view the vocal cords on intubation. Vital signs on presentation showed a temperature of 98.4, heart rate 100, respiratory was 16, blood pressure is 145 over sat 92 and oxygen saturation was 73% on room air. Sats improved to 91% with an Ambu bag however his mental status did not improve. CBC on presentation showed a white count of 25.9, normal hemoglobin, platelet count was unremarkable at 216,000 and he had a left shift with an 85.3% neutrophilia. His coags were markedly abnormal with a INR of 5.3 and a PTT of 47.8 and a PTT of 35.6. These have slowly and trended down since that point in time. Initial blood gas showed a pH of 6.9 with a pCO2 of 124.4 a pO2 of 97 with a sat of 89% on a nonrebreather. His initial chemistry panel showed a normal sodium, mildly elevated potassium of 5.3 likely related to his SIGRID and an acidosis. His BUN was 48 and serum creatinine was 2.98 which was markedly above his baseline of previous documentation in our record of 0.59 however that was from 2020. His initial lactate was 9.8 with a repeat of 5.9. His bilirubin was 5.1 his AST was 3585 with an ALT of 972. His ammonia level was 139. His initial troponin was 93. TSH is within normal limits. His initial CK was 522 and this increased to 1754. An echocardiogram was performed and demonstrated a mildly depressed EF at 45% with a D-shaped septum in systole and diastole in her right pulmonary systolic pressure of 30 mmHg. His RV was moderately dilated and showed moderate global dysfunction. He was admitted to the ICU and gastroenterology and critical care medicine as well as nephrology were consulted. GI felt that his transaminitis was related to ischemic hepatitis. His liver function did slowly improve however his bilirubin continued to climb. He was sent for liver biopsy which was performed on 12/18/2023 and pending at the time of discharge. Cultures were sent twice and his initial sputum culture showed H. influenzae and MSSA pneumonia and he is currently on ceftriaxone for a total of 7-day course. He did require stress dose steroids and pressors temporarily however both were weaned at the time of discharge. Blood cultures and subsequent urine cultures were both unremarkable. He did persist to have some low-level temperature elevations as well as an elevated white count despite negative cultures. He initially required sedation however he has now been off sedation for 3 days with no significant purposeful interaction. MRI was done and showed no acute findings. EEG was done and showed no signs of epileptiform activity or seizure however he did demonstrate some significant metabolic encephalopathy. Neurology was consulted and had nothing yet to add so they have signed off. He was maintained on dialysis with no significant signs of renal recovery at the time of discharge. He had significant coagulopathy and DIC was of concern however his platelet count was beginning to recover and he had multiple other issues that could account for his coagulopathy including his liver dysfunction. He did have anemia which was slowly worsening however he was markedly positive with regards to his fluid status as well. A guaiac was ordered and pending at the time of discharge. He is on prophylactic PPI during his hospital course. Extensive conversation was had with family on 12/18/2023 with regards to ongoing goals of care and overall prognosis. They had multiple questions with regards to transplant and they wanted him transferred to tertiary center for transplant evaluation. We did explain that he would not be a transplant candidate given his history and current condition however family wanted transfer. He was accepted at [facility] and transferred there in critical condition on 12/18/2023. Discharge diagnoses: Acute hypoxic and hypercapnic respiratory failure secondary to pneumonia/altered mental status Septic shock secondary to H. influenzae and MSSA pneumonia Persistent leukocytosis SIGRID secondary to ischemic ATN Rhabdomyolysis-resolved Hyperkalemia-resolved Acute exacerbation of COPD-resolved Toxic/metabolic encephalopathy Suspected ischemic hepatitis with coagulopathy-biopsy pending Hyperglycemia with hypoglycemia on presentation Thrombocytopenia-improving Leukocytosis Tachycardia Acute anemia Depression History of tobacco abuse Physical Exam Const no apparent distress and average body habitus; Negative for healthy appearing or well nourished Constitutional Narrative: Middle-aged, white male, lying in bed intubated and sedated, remains with no significant purposeful interaction at this time, appears much older than stated age General Appearance: intubated and patient mechanically ventilated HEENT normocephalic, head/scalp atraumatic and moist oral mucous membranes HEENT Narrative: Dentition is poor, ET tube and OG in place Eyes PERRL and conjunctivae normal Eyes Narrative: Scleral icterus Neck no lymphadenopathy and supple Resp normal respiratory effort, no retractions, no use of accessory muscles and clear to auscultation bilaterally Resp Narrative: Diffusely diminished but clear Auscultation: Negative for crackles, rales, rhonchi or wheezes Cardio regular rhythm, S1 normal heart sound, S2 normal heart sound, no murmurs, no rub, no gallops and no clicks Cardio Narrative: Tachycardic GI soft to palpation and non-distended; Negative for hepatosplenomegaly GI Narrative: Remains with distention with hypoactive bowel sounds but soft, does not appear to be tender Extremity no clubbing, cyanosis or edema Extremity Narrative: Bilateral upper and lower extremity edema that is pitting in nature, no cyanosis or clubbing, right upper extremity PICC in place Skin skin turgor normal, No no jaundice, no petechiae and no mottling Skin Narrative: Left IJ hemodialysis catheter in place, clean and dry, dressing intact, patient is markedly jaundiced Neuro Neuro Narrative: No significant meaningful interaction despite not being on sedation Sensorium / Orientation: sedated on vent Psych Psych Narrative: Unable to assess Appearance: intubated Weight / BMI Weight Weight: 86.3 kg Body Mass Index (BMI) 27.2 ABG / Lab / Microbiology Data 12/18/23 03:58 12/18/23 03:58 Laboratory: Laboratory Results - last 24 hr 12/17/23 17:11: POC Glucose 197 H 12/17/23 19:36: Blood Type A POSITIVE 12/17/23 23:22: POC Glucose 221 H 12/18/23 03:58: WBC 21.5 H, RBC 2.55 L, Hgb 8.1 L, Hct 24.0 L, MCV 94.1 H, MCH 31.8, MCHC 33.8, RDW Std Deviation 49.9 H, RDW Coeff of Elaine 16.4 H, Plt Count 83 L, MPV 12.7 H, Immature Gran % (Auto) 3.000 H, Neut % (Auto) 84.8 H, Lymph % (Auto) 5.4 L, Benson % (Auto) 6.5, Eos % (Auto) 0.1, Baso % (Auto) 0.2, Absolute Neuts (auto) 18.3 H, Absolute Lymphs (auto) 1.16, Nucleated RBC % 0.8, PT 38.1 H, INR 2.6, APTT 27.4, Sodium 136, Potassium 5.1, Chloride 104, Carbon Dioxide 27.0, Anion Gap 5, BUN 97 H, Creatinine 3.12 H, Estim Creat Clear Calc 26.97, Est GFR (MDRD) Af Amer 27 L, Est GFR (MDRD) Non-Af 22 L, BUN/Creatinine Ratio 31.1 H, Glucose 239 H, Calcium 7.3 L, Total Bilirubin 10.60 H, AST 76 H, ALT 168 H, Alkaline Phosphatase 64, Total Protein 4.5 L, Albumin 2.0 L, Globulin 2.5, Albumin/Globulin Ratio 0.8 L 12/18/23 05:10: POC Glucose 207 H 12/18/23 11:48: POC Glucose 197 H Microbiology: Microbiology 12/14/23 09:45 Blood Culture (Wb) - Right Forearm Blood Culture - Preliminary No growth in 48 hours. 12/14/23 09:35 Blood Culture (Wb) - Pic Blood Culture - Preliminary No growth in 48 hours. 12/14/23 09:25 Urine Catheter - Landry Urine Culture - Final Culture exhibits no growth. 12/14/23 09:02 Sputum, Induced/Lukens Gram Stain - Final 12/14/23 09:02 Sputum, Induced/Lukens Respiratory Culture - Final Presumptive C albicans 12/10/23 20:50 Blood Culture (Wb) - Anticubital Right Blood Culture - Final No growth in 5 days. 12/10/23 20:50 Blood Culture (Wb) - Anticubital Left Blood Culture - Final No growth in 5 days. 04/16/24 Unknown Sputum, Induced/Lukens Gram Stain - Final 12/10/23 Unknown Sputum, Induced/Lukens Respiratory Culture - Final Staphylococcus aureus Haemophilus influenzae 12/10/23 20:50 Urine Catheter - Landry Urine Culture - Final Culture exhibits no growth. 12/10/23 20:50 Mucosa - Nose SARS-CoV-2, Influenza & RSV (PCR) - Final Radiography Diagnostic Testing: Radiology Impression Brain MRI 12/17/23 07:10 IMPRESSION: 1. Mild chronic ischemic changes of the brain, as described above. 2. Severe bilateral mastoiditis. Electronically Signed: Levy Navarro MD at 15:33 EDT Reading Location ID and State: [facility] / [place] , Service support , Meaningful Use Info Meaningful Use Meaningful Use Diagnoses (Choose all that apply): None applicable Ischemic Stroke Statin Dosing Therapy Reference: STATIN DOSE THERAPY REFERENCE: * Patients > 75 years receive moderate or high dose statin therapy. * Patients 75 years or YOUNGER should receive HIGH intensity statin dose unless contraindicated. You will be required to document reason for non-treatment if statin daily dose does not meet guidelines. HIGH DOSE STATIN THERAPY DAILY Atorvastatin > than or = to 40 mg Rosuvastatin > than or = to 20 mg Amlodipine + Atorvastatin > than or = to 2.5/40 mg Ezetimibe + Simvastatin 10/80 mg Simvastatin 80mg Discharge Plan Admission Admit Date/Time: 12/10/23 23:13 Primary Reason for Your Visit: Unresponsiveness Attending Provider: Julia Murry Primary Care Provider: Aleksander Moyer Consulting Providers: Rufus Jaime; Eduar Rodriguez; Ricky Matute; Oli Chu; Agnel Rea; Dorothea Awad; Santiago Coffey; Kisha Mcgill; Bret Suarez; Jeanmarie Peoples; Edi Plummer; Jalen Sal; Rinku Porras; Vamshi Sifuentes; Singh Recinos; Aleksander Lindsey; Chandrika Suero NP; Darrell Ponce; Logan Parra; Riley Mane; Catia Peñaloza; Leesa Viveros; Ivon Mendoza; Temo Pichardo; Roladn Rushing; CALEB LARKIN; Milly Roldan; aJci Short; Murray Ortiz; Inga Braun; Sumit Mcknight Discharge Orders/Prescriptions Prescriptions: No Action sertraline 100 MG tablet 200 mg PO DAILY nicotine (polacrilex) [Nicorette] 4 mg gum 4 mg buccal Q2H albuterol 90 mcg/actuation aerosol 90 mcg inhalation Q4H PRN aripiprazole [Abilify] 2 mg tablet 2 mg PO DAILY Trelegy Ellipta 100-62.5-25 mcg blister with device 1 inh inhalation DAILY Referrals / Follow Up: Aleksander Moyer MD [Primary Care Provider] - Disposition Disposition (needs filled in before D/C Order can be placed): Acute Care Hospital Charges/Coding Visit Charges Inpatient E&M: 99148 Disch Hosp >30min
--- NOTE | 2023-12-18 14:23 | NURSING ---
Report called to Melissa BENTON at [facility].
== END 2023-12-18 14:50 | disposition short-term general hospital (02) | DRG 870 ==
LOC: ED 23:06 → ICU 23:23
PROVIDERS: Internal Medicine; Internal Medicine Critical Care Medicine; Internal Medicine Gastroenterology; Internal Medicine Pulmonary Disease; Admitting Provider Family Medicine; Emergency Provider Emergency Medicine; PCP Family Medicine; Visit Provider Internal Medicine
DX: A41.3 Sepsis due to Hemophilus influenzae (principal); J96.01 Acute respiratory failure with hypoxia; K72.00 Acute and subacute hepatic failure without coma; N17.0 Acute kidney failure with tubular necrosis; J69.0 Pneumonitis due to inhalation of food and vomit; G92.8 Other toxic encephalopathy; R65.21 Severe sepsis with septic shock; J15.211 Pneumonia due to Methicillin susceptible Staphylococcus aureus; J96.02 Acute respiratory failure with hypercapnia; J14 Pneumonia due to Hemophilus influenzae; E72.20 Disorder of urea cycle metabolism, unspecified; J44.1 Chronic obstructive pulmonary disease with (acute) exacerbation; Z99.11 Dependence on respirator [ventilator] status; M62.82 Rhabdomyolysis; D68.9 Coagulation defect, unspecified; E87.21 Acute metabolic acidosis; F19.10 Other psychoactive substance abuse, uncomplicated; Z79.4 Long term (current) use of insulin; K76.89 Other specified diseases of liver; D64.9 Anemia, unspecified; F32.A Depression, unspecified; E87.6 Hypokalemia; E87.5 Hyperkalemia; E16.2 Hypoglycemia, unspecified; D69.6 Thrombocytopenia, unspecified; R74.01 Elevation of levels of liver transaminase levels; R73.9 Hyperglycemia, unspecified
CPT/HCPCS: 31500; 31720; 36569; 36600; 51702; 70450; 70551; 71045; 71250; 74018; 74176; 76700; 77012; 80048; 80053; 80074; 80076; 80202; 80307; 80320; 80329; 81001; 82140; 82330; 82550; 82803; 82962; 83605; 83735; 84100; 84443; 84478; 84484; 85025; 85027; 85379; 85384; 85610; 85730; 86703; 86900; 86901; 87040; 87070; 87077; 87086; 87186; 87205; 87631; 88307; 88313; 90937; 93005; 93306; 93970; 94002; 94003; 94640; 94660; 94762; 95819; 97162; 97802; 97803; 99252; 99285; J7030; J7040; J7050; J7120; P9017; P9047; A4216; C1751; G0257; G0463; G0480; J0295; J0612; J1940; J3490

== ENCOUNTER → 2024-04-09 | Outpatient (CLI) | payer MEDICARE, SELFPAY | END | disposition home or self-care (01) | LOC: LABSPEC 14:41 | PROVIDERS: PCP Family Medicine; Referring Provider Family Medicine; Visit Provider Family Medicine | DX: R19.5 Other fecal abnormalities (principal) ==